=== PATIENT | male | born 1945 | race Caucasian/White ===

== ENCOUNTER → 2017-06-17 | Day surgery (SDC) | payer OTHER ==
[2017-04-22 15:51] VITALS: BMI 35.0
[2017-05-18 15:23] VITALS: Ht 172.7 cm; Wt 109.1 kg
[~2017-06-17] VITALS: Ht 172.7 cm; Wt 109.1 kg
[~2017-06-17] MED LIST: 500ML BSS 0.3ML EPI 1:1000PF IRRIG ONE; ABL5 PO; ACETAMINOPHEN 325 MG TAB PO PRN; AMVISC PLUS 0.8ML SYRINGE INT OCU ONE; BSS FLUSH ONE; BUPR-266 PO; EpINEphrine INJ 1MG/ML AMP 1 MG/ML AMP ONE; LACTATED RINGER'S 1000ML 500 ML IV SCH; LEVO125T72 PO; LIDOCAINE 3.5% OPH GEL PER APPLICATION CHARGE ONE; LIDOCAINE HCL 1% MPF 2 ML VIAL ONE; LTHSR/300 PO; MIDAZOLAM HCL 1 MG/ML 2ML VIAL ONE; OCUCOAT 1 ML SOLN IO ONE; POVIDONE-IODINE OP SOLN 30 ML BTL ONE; PROPARACAINE 0.5% OP SOLN PER DROP CHARGE OPR SCH; TOBRAMYCIN/DEXAMETHASONE OPH OINT PER APPLN CHARGE ONE; TRAZ-119 PO; VENL150C PO
--- NOTE | 2017-06-17 08:03 | History & Physical Bridge - SC ---
H&P Re-Evaluation Bridge Note: I have examined the patient, reviewed the History & Physical and in the interval since the performance of the History & Physical I have noted the following changes of clinical significance: No changes noted
[2017-06-17] MEDS: PHENYLEPHRINE HCL 2.5% OP SOLN PER DROP CHARGE OPR SCH ×2 (08:06→08:11)
[2017-06-17] MEDS: TROPICAMIDE 1% OP SOLN PER DROP CHARGE OPR SCH ×2 (08:07→08:12)
[2017-06-17] MEDS: CYCLOPENTOLATE HCL 1% OP SOLN PER DROP CHARGE OPR SCH ×2 (08:08→08:13)
[2017-06-17] MEDS: KETOROLAC 0.5% OP SOLN PER DROP CHARGE OPR SCH ×2 (08:09→08:14)
[2017-06-17] MEDS: GATIFLOXACIN OP SOLN PER DROP CHARGE OPR SCH ×2 (08:10→08:20)
--- NOTE | 2017-06-17 09:15 | [facility] Operative Report ---
Operative Report Date of Service Jun 17, 2017. Operative Report 1. PREOPERATIVE DIAGNOSIS: Cataract of the right eye. 2. POSTOPERATIVE DIAGNOSIS: Same. 3. PROCEDURE: Phacoemulsification with intraocular lens implantation of the right eye. SURGEON: Dr. Jose Raul Sahni. ANESTHESIA: Topical Lidocaine gel, 1% Non- Preserved intracameral Lidocaine INDICATIONS FOR THE PROCEDURE: The patient is a 71 - year-old male with a history of cataract of the right eye causing significant visual impairment. The details of the proposed procedure were explained to the patient who asked appropriate questions and following discussion of all risks, benefits and alternatives agreed to have the procedure done. 4. OPERATION AND FINDINGS: DESCRIPTION OF PROCEDURE: After informed consent was obtained, the patient was brought to the Operating Room at the [facility]. The patient was placed in a supine position and then the right eye was prepped and draped in the usual sterile fashion for intraocular surgery. A drop of topical Lidocaine gel was placed in the operative eye. A wire lid speculum was then placed in the fornices. A corneal paracentesis was then created temporally. The Non-Preserved Lidocaine was then instilled into the anterior chamber. The anterior chamber was then pressurized with viscoelastic. A 2.0 mm clear corneal incision was then created temporally. A cystotome was inserted into the anterior chamber and used to create a tear in the anterior lens capsule. This capsular tear was then used to create a small flap and the flap was dragged in a counterclockwise direction in order to create a continuous curvilinear capsulorrhexis. Hydrodissection was accomplished with balanced salt solution. Phacoemulsification of the lens nucleus was then performed in a standard [id number] technique. The phaco time was 21 seconds with an average power of 13 %. The remaining cortical material was removed using irrigation aspiration. The capsular bag was then filled with viscoelastic. A [employer] MI60L +20.5 diopters lens was then loaded into the injector and injected into the capsular bag. The remaining viscoelastic was removed with the irrigation aspiration handpiece. The wound was hydrated and then checked and found to be watertight. The intraocular pressure was checked and found to be adequate. The wire lid speculum was removed and the patient's face was cleaned and dried. TobraDex ointment was placed in the inferior fornix. The patient was discharged to the Recovery Room having tolerated the procedure well. There were no complications. The patient will be seen tomorrow in the office for follow-up. I attest to the content of the Intraoperative Record and any orders documented therein. Any exceptions are noted below.
--- NOTE | 2017-06-17 09:16 | Discharge Instructions-SurgCtr ---
Discharge Instructions Date of Service Jun 17, 2017. Visit Reason for Visit: Right Cataract Discharge Discharge Diagnosis / Problem: cataract Discharge Goals Goal(s): Improve function Activity Recommendations Activity Limitations: per Instructions/Follow-up section Anesthesia . Post Anesthesia Instructions: If you have had General Anesthesia or IV Sedation: * Do not drive today. * Resume driving when surgeon permits. * Do not make important decisions or sign legal documents today. * Call surgeon for: 1. Temperature elevations greater than 101 degrees F. 2. Uncontrollable pain. 3. Excessive bleeding. 4. Persistent nausea and vomiting. 5. Medication intolerance (nausea, vomiting or rash). * For nausea and vomiting use only clear liquids such as: tea, soda, bouillon until nausea subsides, then gradually increase diet as tolerated. * If you have any concerns or questions, call your surgeon's office. If physician is unavailable and it is an emergency, call 911 or go to the nearest emergency room. . Diet Recommendations Home Diet: resume previous diet Procedures Procedures Performed: Right Cataract Phacoemulsification With Intraocular Lens Implant Pending Studies Studies pending at discharge: no Medical Emergencies . Who to Call and When: Medical Emergencies: If at any time you feel your situation is an emergency, please call 911 immediately. . Non-Emergent Contact Non-Emergency issues call your: [employer] . . "Provider Documentation" section prepared by Jose Raul Sahni. .
[2017-06-17 09:44] VITALS: BP 133/78; PULSE 77; O2SAT 99
== END | disposition home or self-care (01) ==
LOC: X.SURG 07:14
PROVIDERS: ATTEND Ophthalmology
DX: H26.8 Other specified cataract (principal); F31.30 Bipolar disorder, current episode depressed, mild or moderate severity, unspecified; N18.3 Chronic kidney disease, stage 3 (moderate); E03.9 Hypothyroidism, unspecified

== ENCOUNTER 2022-09-25 09:08 | Inpatient (IN) ==
--- NOTE | 2022-09-25 09:37 | Emergency Department Note ---
Impression & Plan Aphasia, Right sided weakness ED Provider Note Provider: Ashok Castaneda MD DATE OF SERVICE: 09/25/2022 CHIEF COMPLAINT: Right-sided weakness for speech issues HISTORY OF PRESENT ILLNESS: Patient is a 77-year-old gentleman past medical history of hypothyroidism and bipolar presenting here today with his . Evidently some symptoms started on Wednesday with trouble getting his speech out. States he is understanding things but having trouble forming words. A bit of right facial droop noted as well as some weakness of his right arm. States he has difficulty walking with his right leg as well. Last several days these have persisted and he has had a little bit of jerking by his report in both upper extremities. Denies significant numbness. Denies headache. No trauma reported. states he was acting a little bit off as well not using his normal bathroom and may be a bit confused. No history of stroke reported. Given the ongoing symptoms eventually decided to come in for evaluation today. PAST MEDICAL HISTORY: As noted above MEDICATIONS: Reviewed home medication list which he reportedly has been taking but does not include anticoagulants SOCIAL HISTORY: Lives at home with PHYSICAL EXAM: GENERAL: alert and oriented in no acute distress on stretcher Head: normocephalic and atraumatic EYES: No injection, discharge or icterus. PERRL, EOMI. NECK: Trachea midline. Supple. ENT: Mucous membranes pink and moist. LUNGS: Airway patent. No retractions. Breath sounds clear HEART: Regular rate and rhythm. No chest wall tenderness ABDOMEN: Soft and non-tender, without guarding or rebound. SKIN: Acyanotic, warm, dry, without rashes EXTREMITIES: Without swelling, tenderness or deformity NEUROLOGICAL: 2+ strength of the right upper extremity with intact strength of the left lower and left upper extremity. No significant drift of the lower extremities on straight leg raise. Right facial droop noted. Slight aphasia. No significant numbness of the face or extremities reported by the patient or asymmetry. EK bpm sinus rhythm first-degree AV block. No PVC or PAC. No acute ST segment elevation or depression with QTc of 450. CONTINUOUS CARDIAC MONITORING: was ordered and showed a heart rate of 70s bpm in sinus rhythm first-degree AV block Patient's laboratory studies and imaging reviewed. Differential includes Infection, dehydration, metabolic abnormality, hypo/hyperglycemia, electrolyte disturbance, anemia, hypoxia, cardiac sources, intracerebral event, toxicologic, neurologic, as well as other pathologies. IMPRESSION/MEDICAL DECISION MAKING: Trauma history. Unfortunately appears likely a CVA. Delayed hesitation does not indicate thrombolytic therapy. He is also on lithium and other psychotropic medications could be contributing to little bit to the jerking. Does not seem severely confused but some difficulty in his words out. Blood work was sent and sent for CT imaging to initially evaluate. Question given symptoms possible findings of the CT but were by report this was negative for acute abnormalities.. Lower suspicion for intracranial bleed. Not on anticoagulants or antiplatelet agents. No infectious symptoms reported. Does not appear meningitic. Glucose checked. No significant electrolyte abnormalities. Discussed with the patient and family still feel that CVA most likely given the focality of his exam. Does not appear infected. Discussed with the hospitalist team for further care and evaluation here. MRI to be completed. DIAGNOSIS: aphasia, right-sided weakness DISPOSITION: Hospitalist will evaluate Patient was agreeable with this plan. Past Med/Surg History Medical History Bipolar disorder Stroke-like symptoms Thyroid disorder Surgical History (Updated 09/25/22 @ 16:10 by KAI Gee) History of appendectomy Family History (Updated 09/25/22 @ 13:25 by KAI Gee) Other Depression Dyslipidemia Family history non-contributory Hypertension Social History Smoking Status: Never smoker Hx Alcohol Use: No Hx Substance Use: No Preferred Language: Azerbaijani Communication Ability: Impaired Senior Net Web Developer Required: No Beliefs That Will Affect Care: None marital status: Current Living Situation: Spouse current occupational status: retired Feels Safe at Home: Yes Assistive Devices: Denture - Upper, Denture - Lower and Glasses Allergies Allergies Allergy/AdvReac Type Severity Reaction Status Date / Time No Known Allergies Allergy Unverified 09/25/22 12:14 Home Meds Home Medications Medication Instructions Recorded Confirmed aripiprazole 5 mg tablet (Abilify) 7.5 mg PO HS 08/21/18 09/25/22 dextromethorphan-guaifenesin 30 1 tab PO Q12H PRN Congestion 08/21/18 09/25/22 mg-600 mg tablet extended [id number] hr (Mucinex DM) trazodone 150 mg tablet 150 mg PO HS 08/21/18 09/25/22 venlafaxine 150 mg 300 mg PO HS 08/21/18 09/25/22 capsule,extended release 24 hr (Effexor XR) levothyroxine 150 mcg tablet 150 mcg PO DAILY 09/25/22 09/25/22 lithium carbonate 450 mg 450 mg PO HS 09/25/22 09/25/22 tablet,extended release quetiapine 25 mg tablet (Seroquel) 12.5 mg PO HS 09/25/22 09/25/22 Results & Data (ED) Vital Signs Vital Signs - 24 hr 09/25/22 09:16 09/25/22 09:30 09/25/22 09:59 Temperature 36.8 C Temperature Source Temporal Artery Scan Pulse Rate 74 73 65 Pulse Rate from SpO2 Sensor 65 Pulse Rhythm Regular Pulse Strength Normal Respiratory Rate 20 22 Respiratory Effort / Characteristics Non-Labored Spontaneous Respiratory Depth Normal Respiratory Pattern Regular Blood Pressure 144/88 H 113/72 Blood Pressure Mean 106 85 Blood Pressure Position Sitting Pulse Oximetry 99 97 Oxygen Delivery Method Room Air Room Air Sepsis Recent Fever Within 48 Hours No Sepsis New/Unexplained Change in Mental Status No Sepsis Action Taken by Nursing No Action Required 09/25/22 10:00 09/25/22 10:30 Temperature Temperature Source Pulse Rate 68 67 Pulse Rate from SpO2 Sensor 69 67 Pulse Rhythm Pulse Strength Respiratory Rate 21 24 Respiratory Effort / Characteristics Respiratory Depth Respiratory Pattern Blood Pressure 135/73 127/75 Blood Pressure Mean 93 92 Blood Pressure Position Pulse Oximetry 96 94 Oxygen Delivery Method Room Air Room Air Sepsis Recent Fever Within 48 Hours Sepsis New/Unexplained Change in Mental Status Sepsis Action Taken by Nursing Laboratory Data 09/25/22 09:34 09/25/22 09:34 Lab Results 09/25/22 09/25/22 09/25/22 Range/Units 09:31 09:34 09:34 WBC 9.39 (4.8-10.8) K/ul RBC 4.42 L (4.70-6.10) M/uL Hgb 14.7 (14.0-18.0) g/dl Hct 43.9 (42.0-52.0) % MCV 99.3 (80.0-100.0) fL MCH 33.3 (25.0-34.0) pg MCHC 33.5 (32.0-36.0) g/dL RDW Std Deviation 50.9 H (36.4-46.3) fL RDW Coeff of [place] 13.9 (11.5-14.5) % Plt Count 180 (130-400) K/uL MPV 10.3 (9.4-12.4) fL Immature Gran % (Auto) 0.4 % Neut % (Auto) 54.9 % Lymph % (Auto) 29.8 % [place] % (Auto) 7.8 % Eos % (Auto) 6.2 % Baso % (Auto) 0.9 % Neut # (Auto) 5.16 (1.40-6.50) K/uL Lymph # (Auto) 2.80 (1.2-3.4) K/uL [place] # (Auto) 0.73 H (0.11-0.59) K/uL Eos # (Auto) 0.58 H (0-0.50) K/uL Baso # (Auto) 0.08 (0-0.2) K/uL Immature Gran # (Auto) 0.04 (0.01-0.20) K/uL PT 12.5 H (9.0-12.0) Seconds INR 1.2 H (0.9-1.1) APTT 26.1 (21.0-31.0) Seconds PTT Ratio 0.9 Sodium (136-145) mmol/L Potassium (3.5-5.1) mmol/L Chloride (98-107) mmol/L Carbon Dioxide (21-32) mmol/L Anion Gap (3-11) BUN (6-23) mg/dl Creatinine (0.6-1.4) mg/dl Est Cr Clr Drug Dosing ml/min Est GFR ( Amer) ml/min Est GFR (Non-Af Amer) ml/min BUN/Creatinine Ratio (10-20) Glucose (70-99(Fasting)) mg/dl POC Glucose 89 (70-99) mg/dl Calcium (8.6-10.3) mg/dl Magnesium (1.7-2.4) mg/dl Total Bilirubin (0.2-1.0) mg/dl AST (13-39) U/L ALT (7-52) U/L Alkaline Phosphatase (34-104) U/L Troponin I High Sens (0-20) pg/ml Total Protein (6.0-8.3) gm/dl Albumin (3.4-5.0) gm/dl Globulin (2.5-4.0) gm/dl Albumin/Globulin Ratio (0.9-2) TSH (0.300-4.500) uIu/ml Free T4 (0.61-1.60) ng/dl [place] (0.6-1.2) mmol/L SARS-CoV-2, RNA, NAAT (NEGATIVE) 09/25/22 09/25/22 09/25/22 Range/Units 09:34 09:34 09:34 WBC (4.8-10.8) K/ul RBC (4.70-6.10) M/uL Hgb (14.0-18.0) g/dl Hct (42.0-52.0) % MCV (80.0-100.0) fL MCH (25.0-34.0) pg MCHC (32.0-36.0) g/dL RDW Std Deviation (36.4-46.3) fL RDW Coeff of [place] (11.5-14.5) % Plt Count (130-400) K/uL MPV (9.4-12.4) fL Immature Gran % (Auto) % Neut % (Auto) % Lymph % (Auto) % [place] % (Auto) % Eos % (Auto) % Baso % (Auto) % Neut # (Auto) (1.40-6.50) K/uL Lymph # (Auto) (1.2-3.4) K/uL [place] # (Auto) (0.11-0.59) K/uL Eos # (Auto) (0-0.50) K/uL Baso # (Auto) (0-0.2) K/uL Immature Gran # (Auto) (0.01-0.20) K/uL PT (9.0-12.0) Seconds INR (0.9-1.1) APTT (21.0-31.0) Seconds PTT Ratio Sodium 136 (136-145) mmol/L Potassium 4.2 (3.5-5.1) mmol/L Chloride 102 (98-107) mmol/L Carbon Dioxide 32 (21-32) mmol/L Anion Gap 2 L (3-11) BUN 21 (6-23) mg/dl Creatinine 1.68 H (0.6-1.4) mg/dl Est Cr Clr Drug Dosing 42.5 ml/min Est GFR ( Amer) 44.1 ml/min Est GFR (Non-Af Amer) 38.1 ml/min BUN/Creatinine Ratio 12.5 (10-20) Glucose 86 (70-99(Fasting)) mg/dl POC Glucose (70-99) mg/dl Calcium 10.0 (8.6-10.3) mg/dl Magnesium 2.1 (1.7-2.4) mg/dl Total Bilirubin 0.5 (0.2-1.0) mg/dl AST 15 (13-39) U/L ALT 16 (7-52) U/L Alkaline Phosphatase 58 (34-104) U/L Troponin I High Sens 5.9 (0-20) pg/ml Total Protein 7.1 (6.0-8.3) gm/dl Albumin 4.3 (3.4-5.0) gm/dl Globulin 2.8 (2.5-4.0) gm/dl Albumin/Globulin Ratio 1.5 (0.9-2) TSH (0.300-4.500) uIu/ml Free T4 (0.61-1.60) ng/dl [place] 1.6 H (0.6-1.2) mmol/L SARS-CoV-2, RNA, NAAT NEGATIVE (NEGATIVE) 09/25/22 Range/Units 09:43 WBC (4.8-10.8) K/ul RBC (4.70-6.10) M/uL Hgb (14.0-18.0) g/dl Hct (42.0-52.0) % MCV (80.0-100.0) fL MCH (25.0-34.0) pg MCHC (32.0-36.0) g/dL RDW Std Deviation (36.4-46.3) fL RDW Coeff of [place] (11.5-14.5) % Plt Count (130-400) K/uL MPV (9.4-12.4) fL Immature Gran % (Auto) % Neut % (Auto) % Lymph % (Auto) % [place] % (Auto) % Eos % (Auto) % Baso % (Auto) % Neut # (Auto) (1.40-6.50) K/uL Lymph # (Auto) (1.2-3.4) K/uL [place] # (Auto) (0.11-0.59) K/uL Eos # (Auto) (0-0.50) K/uL Baso # (Auto) (0-0.2) K/uL Immature Gran # (Auto) (0.01-0.20) K/uL PT (9.0-12.0) Seconds INR (0.9-1.1) APTT (21.0-31.0) Seconds PTT Ratio Sodium (136-145) mmol/L Potassium (3.5-5.1) mmol/L Chloride (98-107) mmol/L Carbon Dioxide (21-32) mmol/L Anion Gap (3-11) BUN (6-23) mg/dl Creatinine (0.6-1.4) mg/dl Est Cr Clr Drug Dosing ml/min Est GFR ( Amer) ml/min Est GFR (Non-Af Amer) ml/min BUN/Creatinine Ratio (10-20) Glucose (70-99(Fasting)) mg/dl POC Glucose (70-99) mg/dl Calcium (8.6-10.3) mg/dl Magnesium (1.7-2.4) mg/dl Total Bilirubin (0.2-1.0) mg/dl AST (13-39) U/L ALT (7-52) U/L Alkaline Phosphatase (34-104) U/L Troponin I High Sens (0-20) pg/ml Total Protein (6.0-8.3) gm/dl Albumin (3.4-5.0) gm/dl Globulin (2.5-4.0) gm/dl Albumin/Globulin Ratio (0.9-2) TSH 22.971 H (0.300-4.500) uIu/ml Free T4 0.83 (0.61-1.60) ng/dl [place] (0.6-1.2) mmol/L SARS-CoV-2, RNA, NAAT (NEGATIVE) Imaging Data Radiologist's Impression: Head CT 09/25/22 09:21 CT head/brain wo con CLINICAL HISTORY: 77 years-old Male with R neuro deficit, acute stroke suspecte d. Acute strokelike symptoms TECHNIQUE: Multiple axial CT images of the head were obtained without contrast. A dose lowering technique was utilized adhering to the principles of ALARA. CT DOSE: 696.82 mGycm COMPARISON: 08/21/2018 FINDINGS: No acute intracranial hemorrhage, midline shift, intracranial mass, hydrocephalus, territorial ischemia or abnormal extra-axial collection. Involutional changes. White matter hypodensities suggestive of chronic microvascular ischemic disease. Cerebral vascular calcifications. The calvarium is intact. Minimal mucosal thickening of the right maxillary sinus. The mastoid air cells are clear. Unremarkable soft tissues. Prior bilateral lens repair. IMPRESSION: No acute intracranial abnormality. ACT 112: Negative or not required by law. The above report was generated using voice recognition software. It may contain grammatical, syntax or spelling errors. Electronically signed by: Ramon Sandoval M.D. 09/25/2022 9:57 AM Discharge Plan Visit Data Chief Complaint: Stroke/CVA Symptoms Stated Complaint: FACIAL DROOPING, UNABLE TO BALANCE ED Provider: Ashok Castaneda Discharge Problem: Aphasia, Right sided weakness Patient Disposition: Admitted As Inpatient Discharge Instructions Interventions: ED Discharge Assessment Last Done: 09/25/22 14:05
--- NOTE | 2022-09-25 10:00 | CT Scan Report ---
CT head/brain wo con CLINICAL HISTORY: 77 years-old Male with R neuro deficit, acute stroke suspected. Acute strokelike s ymptoms TECHNIQUE: Multiple axial CT images of the head were obtained without contrast. A dose lowering tech nique was utilized adhering to the principles of ALARA. CT DOSE: 696.82 mGycm COMPARISON: 08/21/2018 FINDINGS: No acute intracranial hemorrhage, midline shift, intracranial mass, hydrocephalus, territorial ischem ia or abnormal extra-axial collection. Involutional changes. White matter hypodensities suggestive of chronic microvascular ischemic disease. Cerebral vascular calcifications. The calvarium is intact. Minimal mucosal thickening of the right maxillary sinus. The mastoid air ce lls are clear. Unremarkable soft tissues. Prior bilateral lens repair. IMPRESSION: No acute intracranial abnormality. ACT 112: Negative or not required by law. The above report was generated using voice recognition software. It may contain grammatical, syntax o r spelling errors. Electronically signed by: Ramon Sandoval M.D. 09/25/2022 9:57 AM
[2022-09-25 10:09] LABS: Basophils # (auto) 0.08 K/uL (0-0.2); Basophils % (auto) 0.9 %; Eosinophils # (auto) 0.58 K/uL (0-0.50); Eosinophils % (auto) 6.2 %; Hematocrit (blood only) 43.9 % (42.0-52.0); Hemoglobin 14.7 g/dl (14.0-18.0); Immature Granulocytes # (auto) 0.04 K/uL (0.01-0.20); Immature Granulocytes % (auto) 0.4 %; Lymphocytes % (auto) 29.8 %; Mean Corpuscular Hemoglobin 33.3 pg (25.0-34.0); Mean Corpuscular Hgb Conc 33.5 g/dL (32.0-36.0); Mean Corpuscular Volume 99.3 fL (80.0-100.0); Mean Platelet Volume 10.3 fL (9.4-12.4); Monocytes # (auto) 0.73 K/uL (0.11-0.59); Monocytes % (auto) 7.8 %; Neutrophils # (auto) 5.16 K/uL (1.40-6.50); Neutrophils % (auto) 54.9 %; Platelet Count 180 K/uL (130-400); RDW Coefficient of Variation 13.9 % (11.5-14.5); RDW Standard Deviation 50.9 fL (36.4-46.3); Red Blood Count 4.42 M/uL (4.70-6.10); White Blood Count 9.39 K/ul (4.8-10.8)
[2022-09-25 10:24] LABS: Albumin Globulin Ratio 1.5 (0.9-2); Albumin Level 4.3 gm/dl (3.4-5.0); BUN Creatinine Ratio 12.5 (10-20); Bilirubin,Total 0.5 mg/dl (0.2-1.0); Creatinine Clr Calc Pharmacy 42.5 ml/min; Est GFR (African American) 44.1 ml/min; Est GFR (Non-African American) 38.1 ml/min; Globulin 2.8 gm/dl (2.5-4.0); Magnesium 2.1 mg/dl (1.7-2.4); Potassium 4.2 mmol/L (3.5-5.1); Total Protein 7.1 gm/dl (6.0-8.3)
[2022-09-25 10:30] LABS: Troponin I High Sensitivity 5.9 pg/ml (0-20)
[2022-09-25 10:31] LABS: INR 1.2 (0.9-1.1); Partial Thromboplastin Ratio 0.9; Partial Thromboplastin Time 26.1 Seconds (21.0-31.0); Prothrombin Time 12.5 Seconds (9.0-12.0)
[2022-09-25] MEDS ORDERED: ONDANSETRON INJ 2 MG/ML 2 ML VIAL IV PRN (10:51)
[2022-09-25] MEDS ORDERED: ACETAMINOPHEN 325 MG TAB PO PRN (10:51)
[2022-09-25] MEDS ORDERED: ALUMINUM/MAGNESIUM SUSP 30 ML UDC PO PRN (10:51)
[2022-09-25] MEDS ORDERED: MAGNESIUM HYDROXIDE SUSP 30 ML UDC PO PRN (10:51)
[2022-09-25] MEDS ORDERED: POLYETHYLENE (MIRALAX) 17 GM PACK PO PRN (10:51)
--- NOTE | 2022-09-25 11:00 | History & Physical Report ---
Date of Service September 25, 2022 Assessment & Plan (1) Stroke-like symptoms: (2) Right sided weakness: (3) Aphasia: (4) Bipolar disorder: (5) Thyroid disorder: Plan 77 year old presents with CVA-like symptoms with right sided weakness/facial drop. Not on any AC/AP therapy. No H/O CVA/TIA. No known cardiac disease. Head CT (-) for CVA, brain MRI ordered. Not thrombolytic candidate d/t being outside the tx window with s/s > 3-4 days. Neuro consult; stroke orders without thrombo lytics. Stroke Like Symptoms: Right sided weakness: Expressive Aphagia: Head CT: negative for ICH, midline shift or intracranial abnormality Brain MRI with and without contrast negative. Baseline Creatinine 1.6 EGFR > 30. Hold off on CTA due to elevated creatinine for now; Hospitalist to order CTA in AM if creatinine recovers ECHO 01/2022: EF 55-59%, G1DDx Neuro consult; Appreciate input. stroke orders without thrombolytics Not on any AC/AP therapy NIH 4. Bipolar Disorder: Follows with jamir Wilson terri 08/17; Dr. Tinoco. Feels his mental health is stable Takes Seroquel 12.5mg QHS , Camargito 450 mg QHS , Abilify 7.5 mg QHS Takes Effexor 300 mg QHS; continue Confirmed all dosing of Camargito, Abilify and Seroquel as reflected in med rec. Noted compliance with psych medications Takes Effexor; continue Camargito level 1.6; discussed with on-call psych regarding Camargito level. Suggestion to hold Camargito for now. Repeat Camargito level at 2100 tonight (ordered). If Camargito level < 1.2; restart Camargito in TWO days at reduced dose of 300 mg PO QHS. Recc repeat [place] level in 5 days after restart at 12 hours past last dose to ensure it remains < 1.2 Consider full psych consult if any further decline or lab changes Hypothyroidism: 06/2022: TSH , Free T4 1.36 Today TSH 22.07; Levothyroxine recently increased from 137 mcg to 150 mcg on 09/11/22. Continue with recent dose adjustment and keep at 150 mcg Free T4 0.83 HLD: 06/2022 Lipid panel: TG282,HDL52, LDL 97 Disposition: PCP: Dr. Faye Code Status: Full Code VTE Prophylaxis: Teds and SCDs for now I spent a total of 87 minutes coordinating, documenting, and providing care for this patient excluding time spent in the performance of separately billed services. All of the aforementioned completed while collaborating with the assigned attending physician for a full treatment plan. Please see their addendum for further details. History of Present Illness Chief Complaint: stroke like symptoms Primary Care Provider: Grant Faye MD Mr. Darnell is a 77-year-old male that presents to the [facility] today with complaints of right sided weakness which has been going on for the last 4 to 5 days. Patient Candi is at his bedside and providing most of the medical details of his HPI due to patient having expressive aphasia. They do daily devotions between the 2 of them and he was noted to have some confusion and difficulty getting his words out starting 4 days ago. No other recent illnesses or contributing factors to his current presentation. Patient is able to participate in the conversation and does not appear to have receptive aphasia. Patient does deny headache, visual changes, auditory changes, lightheadedness, nausea, vomiting, diarrhea,, abdominal pain recent falls or trauma. Patient does report a fall in his bathroom 1 month ago which appears to be mechanical in nature as he slipped on the floor and fell backwards without hitting his head or losing consciousness. Patient is sitting in his bed in no apparent distress and is able to participate and follow commands. His overall strength seems to have improved since he arrived in the ED. patient continues to have right facial droop and expressive aphasia. NIH of 4 when I was in the room. Patient is an otherwise relatively healthy and independent individual. Patient does have a past medical history of bipolar disorder, anxiety and depression. This is managed by standpoint and he is compliant on his medications. Patient does not take any blood thinners or antiplatelet agents. Head CT negative for hemorrhagic or acute stroke, no midline shift or intracranial mass noted. MRI with and without contrast ordered. Neurology was able to see patient at bedside and will follow along based on imaging results. Unfortunately since his symptoms have progressed past multiple days he does not appear to be considered as a candidate for thrombolytic intervention. Patient will be admitted for further evaluation and management. Please see A/P for further details. Allergies Allergy/AdvReac Type Severity Reaction Status Date / Time No Known Allergies Allergy Unverified 09/25/22 12:14 Home Medications Medication Instructions Recorded Confirmed Type aripiprazole 5 mg tablet (Abilify) 7.5 mg PO HS 08/21/18 09/25/22 History dextromethorphan-guaifenesin 30 1 tab PO Q12H PRN Congestion 08/21/18 09/25/22 History mg-600 mg tablet extended [id number] hr (Mucinex DM) trazodone 150 mg tablet 150 mg PO HS 08/21/18 09/25/22 History venlafaxine 150 mg 300 mg PO HS 08/21/18 09/25/22 History capsule,extended release 24 hr (Effexor XR) levothyroxine 150 mcg tablet 150 mcg PO DAILY 09/25/22 09/25/22 History lithium carbonate 450 mg 450 mg PO HS 09/25/22 09/25/22 History tablet,extended release quetiapine 25 mg tablet (Seroquel) 12.5 mg PO HS 09/25/22 09/25/22 History Past Med/Surg History Medical History Bipolar disorder Stroke-like symptoms Thyroid disorder Surgical History (Updated 09/25/22 @ 16:10 by KAI Gee) History of appendectomy Family History (Updated 09/25/22 @ 13:25 by KAI Gee) Other Depression Dyslipidemia Family history non-contributory Hypertension Social History Smoking Status: Never smoker Hx Alcohol Use: No Hx Substance Use: No Preferred Language: Vincentian Communication Ability: Impaired Repair Specialist Required: No Beliefs That Will Affect Care: None marital status: Current Living Situation: Spouse current occupational status: retired Feels Safe at Home: Yes Assistive Devices: Denture - Upper, Denture - Lower and Glasses Review of Systems Review of Systems: Neuro: (-) Falls, trauma, slurred speech HEENT: (-) BRANDON, dizziness, dysphagia, visual or auditory changes CV: (-) CP, palpitations, swelling Resp: (-) SOB GI: (-) appetite changes, N/V/D, bowel changes : (-) urinary changes Skin: (-) rashes Psych: (-) anxiety, depression Physical Exam Physical Exam: Neuro: AAOx4, PERRLA, no aphagia, memory changes, HEENT: head normocephalic, moist mucus membranes CV: S1/S2, (-) M/G/R, (-) edema, cap refill < 3 seconds Resp: Lungs CTA in all lobato. On RA GI: Abdomen S/NT/ND, Ax4 bowel sounds, (-) CVA tenderness Musculoskeletal: 5/5 B/L UE strength, 5/5 B/L LE strength. No gait disturbance Skin: (-) rashes , (-) erythema. Psych: euthymic mood Results & Data Results & Data Vital Signs (Past 12 Hours) Vital Signs Temp Pulse Resp BP Pulse Ox O2 Del Method 09/25/22 10:30 67 24 127/75 94 Room Air 09/25/22 10:00 68 21 135/73 96 Room Air 09/25/22 09:59 65 22 113/72 97 Room Air 09/25/22 09:30 73 09/25/22 09:16 36.8 C 74 20 144/88 H 99 Room Air Laboratory Results Short CBC 09/25/22 Range/Units 09:34 WBC 9.39 (4.8-10.8) K/ul Hgb 14.7 (14.0-18.0) g/dl Hct 43.9 (42.0-52.0) % Plt Count 180 (130-400) K/uL BMP 09/25/22 09:34 Sodium 136 Potassium 4.2 Chloride 102 Carbon Dioxide 32 BUN 21 Creatinine 1.68 H Glucose 86 Calcium 10.0 Liver Function 09/25/22 Range/Units 09:34 Total Bilirubin 0.5 (0.2-1.0) mg/dl AST 15 (13-39) U/L ALT 16 (7-52) U/L Alkaline Phosphatase 58 (34-104) U/L Albumin 4.3 (3.4-5.0) gm/dl Diagnostic Findings Head CT 09/25/22 09:21 CT head/brain wo con CLINICAL HISTORY: 77 years-old Male with R neuro deficit, acute stroke suspected. Acute strokelike symptoms TECHNIQUE: Multiple axial CT images of the head were obtained without contrast. A dose lowering technique was utilized adhering to the principles of ALARA. CT DOSE: 696.82 mGycm COMPARISON: 08/21/2018 FINDINGS: No acute intracranial hemorrhage, midline shift, intracranial mass, hydrocephalus, territorial ischemia or abnormal extra-axial collection. Involutional changes. White matter hypodensities suggestive of chronic microva scular ischemic disease. Cerebral vascular calcifications. The calvarium is intact. Minimal mucosal thickening of the right maxillary sinus. The mastoid air cells are clear. Unremarkable soft tissues. Prior bilateral lens repair. IMPRESSION: No acute intracranial abnormality. ACT 112: Negative or not required by law. The above report was generated using voice recognition software. It may contain grammatical, syntax or spelling errors. Electronically signed by: Ramon Sandoval M.D. 09/25/2022 9:57 AM Code Status & VTE Plan Code Status Full Code in the event of cardiac or respiratory arrest VTE Prophylaxis Plan VTE Prophylaxis will be ordered: Yes Supervising Physician Co-Signing Physician Notes Pt was seen and examined. Agreed with Katharine SAUCEDA exam, assessment and plan. 77-year-old male that presents to the [facility] to eval for stroke like symptoms. Pt has been having weakness for the last 4 to 5 days associated with aphasia. He was also noted to be confused and aphasic. Currently he said that he feels OK. CT head done on admission showed no acute intracranial finding. On exam, no focal neuro deficit noted, motor and sensation intake, Chest- CTA B/L. MRI head was negative. No TPA was administered in the ER since pt has been having symptoms for the last few days. Neuro was consulted recommended to start on aspirin 81mg daily. Neuro suggested to check CT angiography of the head and neck. consider 30-day mobile cardiac outpatient telemetry no evidence of atrial fibrillation identified in the context of this hospitalization.PT/OT/Speech eval as per stroke protocol. Will follow Camargito level. Continue monitor closely in tele. MD Beverly
[2022-09-25 11:05] LABS: Thyroid Stimulating Hormone 22.971 uIu/ml (0.300-4.500)
--- NOTE | 2022-09-25 12:16 | Neurology Consultation ---
Date of Consultation September 25, 2022 Assessment & Plan (1) Stroke-like symptoms: (2) Aphasia: (3) Right sided weakness: Plan 77-year-old male presenting with a probable subacute left hemispheric ischemic infarct. He has been noticing mild right-sided weakness for at least the past week, but with more recent development of what looks like a mild to moderate expressive aphasia. His presentation could be consistent with recurrent embolic stroke to the left cerebral hemisphere. Fortunately, his right hemiparesis is mild at this time. His expressive aphasia is perhaps mild to moderate in severity with intact language comprehension. He will need additional evaluation including MRI of the brain, CT angiography of the head and neck, carotid ultrasound if unable to complete CT angiography due to elevated creatinine, cardiac monitoring. If his MRI does reveal evidence of ischemic stroke, would start daily low-dose aspirin. If there is evidence of hemorrhage, would need to review further prior to recommending antiplatelet therapy. The initial CT of the head was negative for hemorrhage, however. Would check a lipid panel, consider starting a statin with a goal LDL of 70 or less. Would also recommend a transthoracic echocardiogram with bubble study. Patient has been normotensive, without blood pressure medication. Continue to monitor his blood pressure, if necessary, could allow for permissive hypertension, systolic blood pressure range 140 to 160 mmHg. Nonetheless, his current blood pressure is acceptable as he appears to run lower than this range. Consultations with PT/OT/speech therapy. I see that his TSH is significantly elevated, follow-up with free T4 level as ordered. Adjust his thyroid supplementation as necessary. Would continue with his usual outpatient psychiatric medications. As above, follow-up with results of brain MRI, neurovascular imaging, echocardiography. Consider mobile cardiac outpatient telemetry. No further immediate neurologic recommendations. Please call with any questions. History of Present Illness Reason for Consultation: Right facial droop, right-sided weakness, concern for stroke Requesting Physician: KAI Evans Attending Physician: KAI Evans History of Present Illness The patient is a 77-year-old male with a history of bipolar disorder, depression, hypothyroidism, no known history of cardiovascular disease, who presented to the emergency department earlier today, complaining of right-sided weakness which has been present for at least the past week or so, but with more recent development of word finding difficulty and confusion, over the past 3 to 4 days. He has been able to ambulate independently in spite of experiencing some difficulty with his right arm and leg. Due to his persistent, progressive symptoms, he decided to eventually come to the emergency department for further evaluation and management. I evaluated him in the emergency department, his is at bedside, she corroborates the above history. The patient does have some difficulty relating details due to what seems like a mild to moderate expressive aphasia. He denies headache, vision change, sensory loss, vertigo, or diplopia. No prior history of stroke or TIA. He does not take any blood thinners such as aspirin or an anticoagulant. He does not have a known history of hypertension or dyslipidemia. He did have a CT of the head completed this morning that was negative for hemorrhage or acute process. I did independently review these images. I do appreciate a subtle hypodensity within the posterior limb of the left internal capsule that could be consistent with a subacute evolving ischemic infarct in this area. There is also subtle hypodensity within the left subinsular region and evidence of chronic microvascular ischemic change in both cerebral hemispheres. A brain MRI is pending. Given that his symptoms have been present for several days, if not the past week or so, he was not considered a candidate for thrombolytic therapy. Looks like a CT angiogram is on hold due to elevated creatinine currently. He has been normotensive, and is afebrile. Allergies Allergy/AdvReac Type Severity Reaction Status Date / Time No Known Allergies Allergy Unverified 09/25/22 12:14 Home Medications Medication Instructions Recorded Confirmed Type aripiprazole 5 mg tablet (Abilify) 2.5 mg PO HS 08/21/18 05/18/22 History dextromethorphan-guaifenesin 30 1 tab PO Q12H PRN Congestion 08/21/18 05/18/22 History mg-600 mg tablet extended hr (Mucinex DM) levothyroxine 125 mcg tablet 125 mcg PO HS 08/21/18 05/18/22 History lithium carbonate 300 mg tablet 900 mg PO HS 08/21/18 05/18/22 History tamsulosin 0.4 mg capsule (Flomax) 0.4 mg PO HS 08/21/18 08/21/18 History trazodone 150 mg tablet 150 mg PO HS 08/21/18 05/18/22 History venlafaxine 150 mg 300 mg PO HS 08/21/18 05/18/22 History capsule,extended release 24 hr (Effexor XR) Patient History Medical History (Updated 09/25/22 @ 10:59 by KAI Gee) Bipolar disorder Stroke-like symptoms Thyroid disorder Family History Other Family history non-contributory Social History Smoking Status: Never smoker Preferred Language: Yi marital status: Current Living Situation: Spouse current occupational status: retired Feels Safe at Home: Yes Review of Systems Constitutional: no fever and no chills Eyes: no blind spots and no diplopia Ear, Nose, Mouth, Throat: no ear pain and no hearing loss Respiratory: no cough and no dyspnea Cardiovascular: no chest pain and no palpitations Gastrointestinal: no nausea and no vomiting Genitourinary: no dysuria or no urinary incontinence Musculoskeletal: no neck pain and no myalgia Integumentary: no rash and no lesions Neurologic: as per Subjective / HPI, + localized weakness and + confusion; no seizure-like activity and no headache(s) Psychiatric: + depression Hematologic / Lymphatic: no easy bleeding and no easy bruising Exam (Neuro) Constitutional: well developed and well nourished; no acute distress Eyes: normal visual lobato by confrontation, PERRL and EOM intact bilaterally; no papilledema Cardiovascular: Vessels: no carotid bruit Neurologic: Oriented to:: Person, Place and Time Memory: Short Term Intact and Remote Intact Attention: Span Intact and Concentration Intact Language: negative Naming Objects or Repeating Phrases Speech Fluency: Dysarthria (mild) and Dysfluency Speech Aphasia: Broca's Aphasia (mild to moderate) Fund of Knowledge: Vocabulary Cranial Nerves: Normal II, III, IV, , V, VIII, IX, X, XI and XII; Abnorm VII (Mild flattening right nasolabial fold noted) Motor Strength: Normal Lower Extremities and Normal Upper Extremities Motor Tone: Normal Lower Extremities and Normal Upper Extremities Muscle Bulk/Involuntary Movements: No Involuntary Movements; negative Muscle Atrophy Sensation: Light Touch Intact, Pain/Temperature Intact, Vibration Intact and Proprioception Intact Coordination: Finger-Nose Abnormal Laterality: Right and Heel-Dougherty Abnormal Laterality: Right Deep Tendon Ref lexes: Rt Triceps: 2+, Lt Triceps: 2+, Rt Biceps: 2+, Lt Biceps: 2+, Rt Brachioradialis: 2+, Lt Brachioradialis: 2+, Rt Patellar: 2+, Lt Patellar: 2+, Rt Ankle: 1+ and Lt Ankle: 1+ Special Tests: negative Babinski Present Details: Gait could not be tested. Patient had difficulty with object naming and somewhat greater difficulty with reading. Results & Data Vital Signs (Past 12 Hours) Vital Signs Temp Pulse Pulse Resp BP BP Pulse Ox 09/25/22 11:00 69 20 118/69 98 09/25/22 10:30 67 24 127/75 94 09/25/22 10:00 68 21 135/73 96 09/25/22 09:59 65 22 113/72 97 09/25/22 09:30 73 09/25/22 09:16 36.8 C 74 20 144/88 H 99 O2 Del Method 09/25/22 11:00 Room Air 09/25/22 10:30 Room Air 09/25/22 10:00 Room Air 09/25/22 09:59 Room Air 09/25/22 09:30 09/25/22 09:16 Room Air Laboratory Results WBC 9.39, hemoglobin 14.7, hematocrit 43.9, MCV 99.3, platelet count 180, sodium 136, potassium 4.2, BUN 21, creatinine 1.68, glucose 86, calcium 10.0, magnesium 2.1, AST 15, ALT 16, TSH 22.971, free T4 pending, lithium 1.6, SARS-CoV-[address] RNA [address] Diagnostic Findings CT of the head as described in the history of present illness, I independently reviewed these images. Electrocardiogram reveals sinus rhythm with first-degree AV block, 74 bpm PG Care Time/CCT Total # of Minutes Spent Total Time Spent with Patient: Total time spent is greater than 50% in coordination of care (as documented) at patient's floor/unit and/or counseling patient: 80 minutes Coding Level of Care Code 02130 INT INP/OBS CARE 3/75MIN Diagnoses Stroke-like symptoms R29.90 Aphasia R47.01 Right sided weakness R53.1
[2022-09-25 12:19] LABS: T4 Free Thyroxine 0.83 ng/dl (0.61-1.60)
--- NOTE | 2022-09-25 12:56 | Magnetic Resonance Report ---
MRI OF THE BRAIN WITHOUT IV CONTRAST CLINICAL HISTORY: Strokelike symptoms. COMPARISON STUDY: CT of the brain dated 09/25/2022. TECHNIQUE: MRI of the brain was performed utilizing various T1 and T2-weighted sequences in the axial , sagittal, and coronal planes. IV contrast was not administered for this examination. The examinatio n is degraded by motion artifact. FINDINGS: Brain parenchyma: There is age-related involutional change noting moderate subcortical and periventri cular microangiopathic disease. There is no hemorrhage or mass effect. There is no restricted diffusi on to suggest acute ischemia. White-white matter differentiation is preserved. No extra-axial fluid co llection is seen. The cerebellar tonsils are normal in configuration. Ventricles, sulci, and cisterns: Prominent secondary to involutional change. Pituitary and sella: Unremarkable. Intracranial vasculature: Normal flow voids are maintained at the skull base. Orbits: The bony orbits are grossly intact. Orbital contents are normal in appearance noting bilatera l ocular lens implants. Sinuses and mastoids: There is mild mucosal thickening in the right maxillary antrum. Trace mucosal t hickening is noted in the ethmoid sinuses. The mastoid air cells are clear. Calvarium: Unremarkable. Cervical cord: Partially visualized cervical spinal cord is normal in morphology and signal intensity . IMPRESSION: No acute intracranial abnormality. ACT 112: Negative or not required by law. Electronically signed by: Jerome Sullivan M.D. 09/25/2022 12:55 PM
--- NOTE | 2022-09-25 18:07 | Electrocardiogram Report ---
Test Reason : Blood Pressure : / mmHG Vent. Rate : 074 BPM Atrial Rate : 074 BPM P-R Int : 216 ms QRS Dur : 106 ms QT Int : 406 ms P-R-T Axes : 032 -05 112 degrees QTc Int : 450 ms Sinus rhythm with 1st degree A-V block Abnormal QRS-T angle, consider primary T wave abnormality Abnormal ECG When compared with ECG of 21-AUG-2018 10:16, ME interval has increased Confirmed by William Amaral ([id number]) on 09/25/2022 6:07:16 PM Referred By: ED Confirmed By:Reynaldo Amaral
[2022-09-25] MEDS: traZODone HCL 50 MG TAB PO SCH (20:07)
[2022-09-25] MEDS: QUEtiapine FUMARATE 25 MG TABLET PO SCH (20:07)
[2022-09-25] MEDS: VENLAFAXINE HCL XR 150 MG CAPXR PO SCH (20:07)
[2022-09-25] MEDS: ARIPiprazole 5 MG TAB PO SCH (20:08)
[2022-09-26 05:13] LABS: Appearance Urine Cloudy (Clear); Bacteria Urine Automated Negative (Negative); Bilirubin Urine Negative (Negative); Blood Urine Negative (Negative); Cast Urine Automated 0 /lpf (0-5); Color Urine Yellow; Glucose Urine UA Negative (Negative); Ketones Urine Negative (Negative); Leukocyte Esterase Urine 1+ (Negative); Nitrite Urine Negative (Negative); Protein Urine Negative (Negative); RBC Urine Automated 0-4 /hpf (0-4); Specific Gravity Urine 1.014 (1.000-1.030); Urobilinogen Urine Negative (Negative); pH Urine 6.5 (4.5-7.5)
[2022-09-26] MEDS: LEVOTHYROXINE SODIUM 150 MCG TABLET PO SCH (05:56)
[2022-09-26 07:47] LABS: Hematocrit (blood only) 42.6 % (42.0-52.0); Hemoglobin 14.3 g/dl (14.0-18.0); Mean Corpuscular Hemoglobin 33.2 pg (25.0-34.0); Mean Corpuscular Hgb Conc 33.6 g/dL (32.0-36.0); Mean Corpuscular Volume 98.8 fL (80.0-100.0); Mean Platelet Volume 10.1 fL (9.4-12.4); Platelet Count 169 K/uL (130-400); RDW Coefficient of Variation 14.1 % (11.5-14.5); RDW Standard Deviation 51.8 fL (36.4-46.3); Red Blood Count 4.31 M/uL (4.70-6.10); White Blood Count 9.06 K/ul (4.8-10.8)
[2022-09-26 08:02] LABS: Albumin Globulin Ratio 1.5 (0.9-2); BUN Creatinine Ratio 13.8 (10-20); Bilirubin,Total 0.5 mg/dl (0.2-1.0); Calcium 9.5 mg/dl (8.6-10.3); Chol HDL Ratio 3.9 (0-5); Creatinine Clr Calc Pharmacy 37.7 ml/min; Est GFR (African American) 38.3 ml/min; Globulin 2.6 gm/dl (2.5-4.0); Potassium 4.4 mmol/L (3.5-5.1); Total Protein 6.6 gm/dl (6.0-8.3)
[2022-09-26 10:15] LABS: Estimated Average Glucose 111 mg/dl; Hemoglobin A1C 5.5 % (4.5-5.6)
--- NOTE | 2022-09-26 14:12 | Hospitalist Progress Note ---
Date of Service September 26, 2022 Assessment & Plan (1) Stroke-like symptoms: Plan: 77 year old presents with CVA-like symptoms with right sided weakness/facial drop. Not on any AC/AP therapy. No H/O CVA/TIA. No known cardiac disease. Head CT (-) for CVA, brain MRI ordered. Not thrombolytic candidate d/t being outside the tx window with s/s > 3-4 days. Neuro consult; stroke orders without thrombolytics. Stroke Like Symptoms: Right sided weakness: Expressive Aphagia: Head CT: negative for ICH, midline shift or intracranial abnormality Brain MRI with and without contrast negative. Baseline Creatinine 1.6 EGFR > 30. Hold off on CTA due to elevated creatinine for now; ECHO 01/2022: EF 55-59%, G1DDx Neuro consult; Appreciate input. stroke orders without thrombolytics Not on any AC/AP therapy improving ordered aspirin and statin and carotid us as per neuro recommendations continue pt/ot Bipolar Disorder: As per H and P:Follows with Steve, jamir terri 08/17; Dr. Tinoco. Feels his mental health is stable Takes Seroquel 12.5mg QHS , [place] 450 mg QHS , Abilify 7.5 mg QHS Takes Effexor 300 mg QHS; continue Confirmed all dosing of [place], Abilify and Seroquel as reflected in med rec. Noted compliance with psych medications Takes Effexor; continue [place] level 1.6; discussed with on-call psych regarding [place] level. Suggestion to hold [place] for now. Repeat [place] level at 2100 tonight (ordered). If [place] level < 1.2; restart [place] in TWO days at reduced dose of 300 mg PO QHS. Recc repeat [place] level in 5 days after restart at 12 hours past last dose to ensure it remains < 1.2 Consider full psych consult if any further decline or lab changes" [place] level 1.3 Will follow repeat lithium levels Hypothyroidism: 06/2022: TSH , Free T4 1.36 Today TSH 22.07; Levothyroxine recently increased from 137 mcg to 150 mcg on 09/11/22. Continue with recent dose adjustment and keep at 150 mcg Free T4 0.83needs followuup HLD: 06/2022 Lipid panel: TG282,HDL52, LDL 97 Strted on statin (2) Bipolar disorder: (3) Thyroid disorder: (4) Aphasia: (5) Right sided weakness: Admission and Anticipated Discharge Date Admission Date: September 25, 2022 Subjective sitting on the bed comfortably in room ambulating with PT seems what wobbly speech is better as per weakness on right side better eating and swallowing ok afebrile no nausea Review of Systems Review of Systems: above Physical Exam Constitutional: WD/WN, vitals as above Eyes: EOMI Neck: trachea midline, no thyromegaly Respiratory: normal respiratory effort, lungs clear to auscultation Cardiovascular: RRR, no murmur, no edema Gastrointestinal (Abdomen): normal bowel sounds, soft, nontender, no hepatosplenomegaly Skin: no rashes, warm and dry Neurologic: alert and oriented has right facial droop speech ok power 5/5 in left extremities 4-5/5 in right extremities co ordination of movements ok no obvious pronator drift Results & Data Results & Data Vital Signs (Past 12 Hours) Vital Signs Temp Pulse Pulse Resp BP Pulse Ox O2 Del Method 09/26/22 11:18 37.2 C 81 20 137/90 98 Room Air 09/26/22 07:00 71 09/26/22 07:35 36.3 C L 79 18 125/78 96 Room Air 09/26/22 03:42 36.6 C 75 16 97/61 L 94 Room Air
[2022-09-26] MEDS ORDERED: ATORVASTATIN 40 MG TAB PO STA (14:19)
[2022-09-26] MEDS ORDERED: ASPIRIN 81 MG ECTAB PO ONE (14:20)
[2022-09-26] MEDS: QUEtiapine FUMARATE 25 MG TABLET PO SCH (22:05)
[2022-09-26] MEDS: VENLAFAXINE HCL XR 150 MG CAPXR PO SCH (22:05)
[2022-09-26] MEDS: traZODone HCL 50 MG TAB PO SCH (22:05)
[2022-09-26] MEDS: ARIPiprazole 5 MG TAB PO SCH (22:06)
[2022-09-27 05:52] LABS: Basophils # (auto) 0.07 K/uL (0-0.2); Basophils % (auto) 0.7 %; Eosinophils % (auto) 5.2 %; Hematocrit (blood only) 41.4 % (42.0-52.0); Hemoglobin 14.2 g/dl (14.0-18.0); Immature Granulocytes # (auto) 0.03 K/uL (0.01-0.20); Immature Granulocytes % (auto) 0.3 %; Lymphocytes # (auto) 3.24 K/uL (1.2-3.4); Lymphocytes % (auto) 33.5 %; Mean Corpuscular Hemoglobin 32.6 pg (25.0-34.0); Mean Corpuscular Hgb Conc 34.3 g/dL (32.0-36.0); Mean Corpuscular Volume 95.2 fL (80.0-100.0); Mean Platelet Volume 10.1 fL (9.4-12.4); Monocytes # (auto) 0.77 K/uL (0.11-0.59); Neutrophils # (auto) 5.05 K/uL (1.40-6.50); Neutrophils % (auto) 52.3 %; Platelet Count 154 K/uL (130-400); RDW Coefficient of Variation 13.9 % (11.5-14.5); RDW Standard Deviation 48.6 fL (36.4-46.3); Red Blood Count 4.35 M/uL (4.70-6.10); White Blood Count 9.66 K/ul (4.8-10.8)
[2022-09-27 06:10] LABS: BUN Creatinine Ratio 14.6 (10-20); Creatinine Clr Calc Pharmacy 40.1 ml/min; Est GFR (African American) 41.1 ml/min; Est GFR (Non-African American) 35.5 ml/min; Potassium 4.1 mmol/L (3.5-5.1)
[2022-09-27] MEDS: LEVOTHYROXINE SODIUM 150 MCG TABLET PO SCH (06:25)
[2022-09-27] MEDS: ASPIRIN 81 MG ECTAB PO SCH (09:31)
[2022-09-27] MEDS: ATORVASTATIN 40 MG TAB PO SCH (09:31)
--- NOTE | 2022-09-27 11:29 | Ultrasound Report ---
US carotid doppler BI CLINICAL HISTORY: 77 years-old Male with cva. Acute strokelike symptoms COMPARISON: Brain MRI 09/25/2022 TECHNIQUE: Multiple real time sonographic images of the carotid bifurcations were obtained assessing monsivais scale, color Doppler and spectral wave form appearance FINDINGS: RIGHT CAROTID: The peak systolic velocity measured within the right ICA is 55 cm/sec. The end diast olic velocity measured 12 cm/sec. The ICA to CCA ratio measured 1.0 which correlates with a stenosis of 0-50%. Minimal atherosclerotic plaque of the right carotid bulb. LEFT CAROTID: The peak systolic velocity measured within the left ICA is 59 cm/sec. The end diastol ic velocity measured 17 cm/sec. The ICA to CCA ratio measured 0.8 which correlates with a stenosis of 0-50%. Minimal atherosclerotic plaque of the left carotid bulb. There is normal antegrade vertebral flow bilaterally. IMPRESSION: 1. No hemodynamically significant stenosis. 2. Normal antegrade vertebral flow bilaterally. ACT 112: Negative or not required by law. The above report was generated using voice recognition software. It may contain grammatical, syntax o r spelling errors. Electronically signed by: Ramon Sandoval M.D. 09/27/2022 11:27 AM
--- NOTE | 2022-09-27 17:54 | Hospitalist Progress Note ---
Date of Service September 27, 2022 Assessment & Plan (1) Stroke-like symptoms: Plan: (1) Stroke-like symptoms: Plan: 77 year old presents with CVA-like symptoms with right sided weakness/facial drop. Not on any AC/AP therapy. No H/O CVA/TIA. No known cardiac disease. Head CT (-) for CVA, brain MRI ordered. Not thrombolytic candidate d/t being outside the tx window with s/s > 3-4 days. Neuro consult; stroke orders without thrombolytics. Stroke Like Symptoms: Right sided weakness: Expressive Aphagia: Head CT: negative for ICH, midline shift or intracranial abnormality Brain MRI with and without contrast negative. Baseline Creatinine 1.6 EGFR > 30. Hold off on CTA due to elevated creatinine for now; ECHO 01/2022: EF 55-59%, G1DDx Neuro consult; Appreciate input. stroke orders without thrombolytics Not on any AC/AP therapy improving Started on aspirin and statin as per neuro recommendations. recommends cta or carotid us for possible embolic TIA and also one moth heart monitor on discharge if tele ok here. carotid US ok continue pt/ot- recommends rehab speech recommends speech therapy at discharge Bipolar Disorder: As per H and P:Follows with [email or web address], jamir terri 08/17; Dr. Tinoco. Feels his mental health is stable Takes Seroquel 12.5mg QHS , [place] 450 mg QHS , Abilify 7.5 mg QHS Takes Effexor 300 mg QHS; continue Confirmed all dosing of [place], Abilify and Seroquel as reflected in med rec. Noted compliance with psych medications Takes Effexor; continue [place] level 1.6; Admitting Doc discussed with on-call psych regarding [place] level. Suggestion to hold I[place]ia for now. Advised f If [place] level < 1.2; restart [place] in TWO days at reduced dose of 300 mg PO QHS. Recc repeat [place] level in 5 days after restart at 12 hours past last dose to ensure it remains < 1.2 Consider full psych consult if any further decline or lab changes" [place] level 1.1 today and can restart lithium 300mg po q hs from tomorrow 09/28/22. and recheck levels in 5 days with am labs. Needs followup with psychiatry Hypothyroidism: 06/2022: TSH , Free T4 1.36 Today TSH 22.07; Levothyroxine recently increased from 137 mcg to 150 mcg on 09/11/22. Continue with recent dose adjustment and keep at 150 mcg Free T4 0.83 needs followuup HLD: 06/2022 Lipid panel: TG282,HDL52, LDL 97 Started on statin needs followup with PCP with [facility] and repeat lipid profile. CKD stage 3 baseline cr 1.6 cr 1.7 today close to baseline follow labs DVt px scds. Await rehab placement Admission and Anticipated Discharge Date Admission Date: September 25, 2022 Subjective Speech is somewhat more pressured today denies chest pain or sob afebrile denies nausea says eating ok no abdominal pain 'no cough Review of Systems Review of Systems: As above Physical Exam Eyes: EOMI Neck: trachea midline, no thyromegaly Respiratory: normal respiratory effort, lungs clear to auscultation Cardiovascular: RRR, no murmur, no edema Gastrointestinal (Abdomen): normal bowel sounds, soft, nontender, no hepatosplenomegaly Neurologic: Alert and oriented speech pressured power 5/5 in all extremities Results & Data Results & Data Vital Signs (Past 12 Hours) Vital Signs Temp Pulse Pulse Resp BP Pulse Ox O2 Del Method 09/27/22 15:27 75 09/27/22 15:27 36.8 C 75 20 133/89 96 Room Air 09/27/22 11:24 36.5 C 77 20 122/70 95 Room Air 09/27/22 07:49 36.7 C 80 20 105/69 95 Room Air 09/27/22 07:16 70
[2022-09-27] MEDS: ARIPiprazole 5 MG TAB PO SCH (21:26)
[2022-09-27] MEDS: traZODone HCL 50 MG TAB PO SCH (21:26)
[2022-09-27] MEDS: QUEtiapine FUMARATE 25 MG TABLET PO SCH (21:26)
[2022-09-27] MEDS: VENLAFAXINE HCL XR 150 MG CAPXR PO SCH (21:27)
[2022-09-28] MEDS: LEVOTHYROXINE SODIUM 150 MCG TABLET PO SCH (05:42)
[2022-09-28] MEDS: ATORVASTATIN 40 MG TAB PO SCH (08:03)
[2022-09-28] MEDS: ASPIRIN 81 MG ECTAB PO SCH (08:03)
[2022-09-28] MEDS ORDERED: traZODone HCL 100 MG TAB PO SCH ×2 (21:00)
[2022-09-28] MEDS: ARIPiprazole 5 MG TAB PO SCH (21:41)
[2022-09-28] MEDS: QUEtiapine FUMARATE 25 MG TABLET PO SCH (21:42)
[2022-09-29] MEDS: LEVOTHYROXINE SODIUM 150 MCG TABLET PO SCH (06:11)
--- NOTE | 2022-09-29 07:47 | Hospitalist Progress Note ---
Date of Service September 28, 2022 Assessment & Plan (1) Stroke-like symptoms: Plan: resolved, per neuro brain MRI with extensive chronic small vessel ischemic disease throughout the cerebral hemispheres with mild generalized atrophy. There was concern for recurrent embolic TIA. CT angio head and neck recommended with consideration for 30 day event monitor. Low dose aspirin was started. Head CT: negative for ICH, midline shift or intracranial abnormality Brain MRI with and without contrast negative. Baseline Creatinine 1.6 EGFR > 30. Started on aspirin and statin as per neuro recommendations. recommends cta or carotid us for possible embolic TIA and also one moth heart monitor on discharge if tele ok here. Hold off on CTA due to elevated creatinine for now; carotids reveal no hemodynamically significant stenosis. ECHO 01/2022: EF 55-59%, G1DDx continue pt/ot- recommends rehab speech recommends speech therapy at discharge Await rehab placement (2) Bipolar disorder: Plan: As per H and P:Follows with Steve, jamir terri 08/17; Dr. Tinoco. Feels his mental health is stable Takes Seroquel 12.5mg QHS , [place] 450 mg QHS , Abilify 7.5 mg QHS Takes Effexor 300 mg QHS; continue but will adjust Effexor to am Noted compliance with psych medications [place] level 1.6; Admitting Doc discussed with on-call psych regarding [place] level. Suggestion to hold [place] for now. Advised f If [place] level < 1.2; restart [place] in TWO days at reduced dose of 300 mg PO QHS. Recc repeat [place] level in 5 days after restart at 12 hours past last dose to ensure it remains < 1.2 Consider full psych consult if any further decline or lab changes [place] 300mg qHS to start on 09/29. Repeat lithium level at noon on 10/04 to ensure still <1.2 (3) Hypothyroidism: Plan: 06/2022: TSH , Free T4 1.36 Today TSH 22.07; Levothyroxine recently increased from 137 mcg to 150 mcg on 09/11/22. Continue with recent dose adjustment and keep at 150 mcg Free T4 0.83 needs followup TFTs as outpatient (4) Morbid obesity: Plan: outpatient nutrition consult recommended. (5) CKD (chronic kidney disease), stage III: Plan: baseline cr 1.6 currently at baseline. cont to monitor PRN Start heparin Full Code Dispo-to rehab when bed available [facility] Hospital[facility] Admission and Anticipated Discharge Date Admission Date: September 25, 2022 Subjective 77 yo M presented wtih right sided weakness and facial droop. Workup including head CT, brain MRI negative. Pt is feeling well and moving well without apparent deficit this morning We discussed his medications and changed effexor to am and cut trazdone by 50% with his permission. Review of Systems Review of Systems: All systems were reviewed and negative except as indicated abov.e Physical Exam Physical Exam: CONSTITUTIONAL: obese, vitals as above, generally well-appearing EYES: EOMI bilaterally, PERRL, normal conjunctivae, no scleral icterus ENT: external ear and nose normal, oropharynx clear, NECK: trachea midline RESPIRATORY: clear to auscultation bilaterally, no crackles, rales or wheezes, normal respiratory effort CARDIOVASCULAR: regular rate and rhythm, S1 and 2 heard without murmurs, gallops or rubs, no JVD, no peripheral edema CHEST: inspection of chest was normal GASTROINTESTINAL: soft, nontender, protuberant, ND, no guarding MUSCULOSKELETAL: strength 5/5 throughout, he can sit up independently in bed without issues. Head is normocephalic and atraumatic SKIN: warm and dry, NEUROLOGIC: patellar DTRs 2+ bilat. PERRL, EOMI, no facial palsy, no dysarthria. Touch, pain and proprioception normal. CN 2-12 grossly intact, no sensory deficit, normal cognition, normal speech, no tremor PSYCHIATRIC: alert cooperative and oriented to person, place and time. Euthymic mood, makes good eye contact, language grossly intact, recent and remote memory grossly intact. Results & Data Results & Data Vital Signs (Past 12 Hours) Vital Signs Temp Pulse Resp BP Pulse Ox O2 Del Method 09/29/22 04:08 36.7 C 90 20 120/75 93 Room Air 09/29/22 00:18 36.7 C 93 H 20 133/69 95 Room Air 09/28/22 19:55 36.7 C 81 20 110/70 93 Room Air Medications Administered Current Inpatient Medications Acetaminophen (Acetaminophen 325 Mg Tab) 650 mg PO Q4H PRN PRN Reason: Pain or Fever Stop: 10/25/22 10:50 Al Hydrox/Mg Hydrox/Simethicone (Aluminum/Magnesium Susp 30 Ml Udc) 15 ml PO Q4H PRN PRN Reason: Dyspepsia Stop: 10/25/22 10:50 Aripiprazole (Aripiprazole 5 Mg Tab) 7.[address] [facility] Stop: 10/25/22 20:59 Last Admin: 09/28/22 21:41 Dose: 7.5 mg Aspirin (Aspirin 81 Mg Ectab) [facility] Stop: 10/27/22 08:59 Last Admin: 09/29/22 09:27 Dose: 81 mg Atorvastatin Calcium (Atorvastatin 40 Mg Tab) [facility] Stop: 10/27/22 08:59 Last Admin: 09/29/22 09:27 Dose: 40 mg Levothyroxine Sodium (Levothyroxine Sodium 150 Mcg Tablet) [facility] Stop: 10/26/22 06:29 Last Admin: 09/29/22 06:11 Dose: 150 mcg Magnesium Hydroxide (Magnesium Hydroxide Susp 30 Ml Udc) 30 ml PO Q12H PRN PRN Reason: Constipation Stop: 10/25/22 10:50 Ondansetron HCl (Ondansetron Inj 2 Mg/Ml 2 Ml Vial) 4 mg IV Q6H PRN PRN Reason: Nausea Stop: 10/25/22 10:50 Polyethylene Glycol (Polyethylene (Miralax) 17 Gm Pack) 17 gm PO DAILY PRN PRN Reason: Constipation Stop: 10/25/22 10:50 Quetiapine Fumarate (Quetiapine Fumarate 25 Mg Tablet) 12.[address] [facility] Stop: 10/25/22 20:59 Last Admin: 09/28/22 21:42 Dose: 12.5 mg Trazodone HCl (Trazodone Hcl 100 Mg Tab) [address] [facility] Stop: 10/28/22 20:59 Last Admin: 09/28/22 21:42 Dose: 100 mg Venlafaxine HCl (Venlafaxine Hcl Xr 150 Mg Capxr) 300 mg PO [facility] Stop: 10/29/22 08:59 Last Admin: 09/29/22 09:26 Dose: 300 mg
[2022-09-29] MEDS ORDERED: VENLAFAXINE HCL XR 150 MG CAPXR PO SCH (09:00)
[2022-09-29] MEDS: ATORVASTATIN 40 MG TAB PO SCH (09:27)
[2022-09-29] MEDS: ASPIRIN 81 MG ECTAB PO SCH (09:27)
--- NOTE | 2022-09-29 10:50 | Hospitalist Progress Note ---
Date of Service September 29, 2022 Assessment & Plan (1) Stroke-like symptoms: Plan: resolved, per neuro brain MRI with extensive chronic small vessel ischemic disease throughout the cerebral hemispheres with mild generalized atrophy. There was concern for recurrent embolic TIA. CT angio head and neck recommended with consideration for 30 day event monitor. Low dose aspirin was started. Head CT: negative for ICH, midline shift or intracranial abnormality Brain MRI with and without contrast negative. Baseline Creatinine 1.6 EGFR > 30. Started on aspirin and statin as per neuro recommendations. recommends cta or carotid us for possible embolic TIA and also one moth heart monitor on discharge if tele ok here. Hold off on CTA due to elevated creatinine for now; carotids reveal no hemodynamically significant stenosis. ECHO 01/2022: EF 55-59%, G1DDx continue pt/ot- recommends rehab speech recommends speech therapy at discharge Await rehab placement (2) Bipolar disorder: Plan: As per H and P:Follows with jaimr Wilson terri 08/17; Dr. Tinoco. Feels his mental health is stable Takes Seroquel 12.5mg QHS , [place] 450 mg QHS , Abilify 7.5 mg QHS Takes Effexor 300 mg QHS; continue but will adjust Effexor to am Noted compliance with psych medications [place] level 1.6; Admitting Doc discussed with on-call psych regarding [place] level. Suggestion to hold [place] for now. Advised f If [place] level < 1.2; restart [place] in TWO days at reduced dose of 300 mg PO QHS. Recc repeat [place] level in 5 days after restart at 12 hours past last dose to ensure it remains < 1.2 Consider full psych consult if any further decline or lab changes [place] 300mg qHS to start on 09/29. Repeat lithium level at noon on 10/04 to ensure still <1.2 (3) Hypothyroidism: Plan: 06/2022: TSH , Free T4 1.36 Today TSH 22.07; Levothyroxine recently increased from 137 mcg to 150 mcg on 09/11/22. Continue with recent dose adjustment and keep at 150 mcg Free T4 0.83 needs followup TFTs as outpatient (4) Morbid obesity: Plan: outpatient nutrition consult recommended. (5) CKD (chronic kidney disease), stage III: Plan: baseline cr 1.6 currently at baseline. cont to monitor PRN Start heparin Full Code Dispo-to rehab when bed available Alecia Saldana DO [facility] Hospitalist Admission and Anticipated Discharge Date Admission Date: September 25, 2022 Subjective 77 yo M presented wtih right sided weakness and facial droop. Workup including head CT, brain MRI negative. Pt is feeling well and moving well without apparent deficit this morning We discussed his medications and changed effexor to am and cut trazdone by 50% with his permission. Review of Systems Review of Systems: All systems were reviewed and negative except as indicated abov.e Physical Exam Physical Exam: CONSTITUTIONAL: obese, vitals as above, generally well-appearing EYES: EOMI bilaterally, PERRL, normal conjunctivae, no scleral icterus ENT: external ear and nose normal, oropharynx clear, NECK: trachea midline RESPIRATORY: clear to auscultation bilaterally, no crackles, rales or wheezes, normal respiratory effort CARDIOVASCULAR: regular rate and rhythm, S1 and 2 heard without murmurs, gallops or rubs, no JVD, no peripheral edema CHEST: inspection of chest was normal GASTROINTESTINAL: soft, nontender, protuberant, ND, no guarding MUSCULOSKELETAL: strength 5/5 throughout, he can sit up independently in bed without issues. Head is normocephalic and atraumatic SKIN: warm and dry, NEUROLOGIC: patellar DTRs 2+ bilat. PERRL, EOMI, no facial palsy, no dysarthria. Touch, pain and proprioception normal. CN 2-12 grossly intact, no sensory deficit, normal cognition, normal speech, no tremor PSYCHIATRIC: alert cooperative and oriented to person, place and time. Euthymic mood, makes good eye contact, language grossly intact, recent and remote memory grossly intact. Results & Data Results & Data Vital Signs (Past 12 Hours) Vital Signs Temp Pulse Pulse Resp BP Pulse Ox O2 Del Method 09/29/22 07:48 36.7 C 79 16 136/81 94 Room Air 09/29/22 07:46 84 09/29/22 04:08 36.7 C 90 20 120/75 93 Room Air 09/29/22 00:18 36.7 C 93 H 20 133/69 95 Room Air Medications Administered Current Inpatient Medications Acetaminophen (Acetaminophen 325 Mg Tab) 650 mg PO Q4H PRN PRN Reason: Pain or Fever Stop: 10/25/22 10:50 Al Hydrox/Mg Hydrox/Simethicone (Aluminum/Magnesium Susp 30 Ml Udc) 15 ml PO Q4H PRN PRN Reason: Dyspepsia Stop: 10/25/22 10:50 Aripiprazole (Aripiprazole 5 Mg Tab) 7.5 mg PO HS [facility] Stop: 10/25/22 20:59 Last Admin: 09/28/22 21:41 Dose: 7.5 mg Aspirin (Aspirin 81 Mg Ectab) [facility] [place] Stop: 10/27/22 08:59 Last Admin: 09/29/22 09:27 Dose: 81 mg Atorvastatin Calcium (Atorvastatin 40 Mg Tab) [facility] Stop: 10/27/22 08:59 Last Admin: 09/29/22 09:27 Dose: 40 mg Heparin Sodium (Porcine) (Heparin Sod 5,000 Unit/0.5 Ml Vial) 5,000 units SQ Q8 [facility] Stop: 10/29/22 13:59 Levothyroxine Sodium (Levothyroxine Sodium 150 Mcg Tablet) [facility]cg [facility] Stop: 10/26/22 06:29 Last Admin: 09/29/22 06:11 Dose: 150 mcg [place] Carbonate ([place] Carbonate 300 Mg Tab) 300 mg PO [facility] Stop: 10/29/22 20:59 Magnesium Hydroxide (Magnesium Hydroxide Susp 30 Ml Udc) 30 ml PO Q12H PRN PRN Reason: Constipation Stop: 10/25/22 10:50 Ondansetron HCl (Ondansetron Inj 2 Mg/Ml 2 Ml Vial) 4 mg IV Q6H PRN PRN Reason: Nausea Stop: 10/25/22 10:50 Polyethylene Glycol (Polyethylene (Miralax) 17 Gm Pack) 17 gm PO DAILY PRN PRN Reason: Constipation Stop: 10/25/22 10:50 Quetiapine Fumarate (Quetiapine Fumarate 25 Mg Tablet) 12.5 mg PO [facility] Stop: 10/25/22 20:59 Last Admin: 09/28/22 21:42 Dose: 12.5 mg Trazodone HCl (Trazodone Hcl 100 Mg Tab) 100 mg PO HS [facility] Stop: 10/28/22 20:59 Last Admin: 09/28/22 21:42 Dose: 100 mg Venlafaxine HCl (Venlafaxine Hcl Xr 150 Mg Capxr) [facility] [place]: 10/29/22 08:59 Last Admin: 09/29/22 09:26 Dose: 300 mg
--- NOTE | 2022-09-29 13:32 | Discharge Summary ---
Discharge Summary Date of Service September 29, 2022 Notes For Next Care Provider Please recheck TFTs in 6-8 weeks after having patient adjust time of administration to daily before breakfast. TSH was 23 here. Please consider 30 day event monitor to rule out underlying arrhythmia. Medication Changes From Visit see [facility] Admission HPI Per Admitting Provider Mr. Darnell is a 77-year-old male that presents to the [facility] today with complaints of right sided weakness which has been going on for the last 4 to 5 days. Patient Candi is at his bedside and providing most of the medical details of his HPI due to patient having expressive aphasia. They do daily devotions between the 2 of them and he was noted to have some confusion and difficulty getting his words out starting 4 days ago. No other recent illnesses or contributing factors to his current presentation. Patient is able to participate in the conversation and does not appear to have receptive aphasia. Patient does deny headache, visual changes, auditory changes, lightheadedness, nausea, vomiting, diarrhea,, abdominal pain recent falls or trauma. Patient does report a fall in his bathroom 1 month ago which appears to be mechanical in nature as he slipped on the floor and fell backwards without hitting his head or losing consciousness. Patient is sitting in his bed in no apparent distress and is able to participate and follow commands. His overall strength seems to have improved since he arrived in the ED. patient continues to have right facial droop and expressive aphasia. NIH of 4 when I was in the room. Patient is an otherwise relatively healthy and independent individual. Patient does have a past medical history of bipolar disorder, anxiety and depression. This is managed by standpoint and he is compliant on his medications. Patient does not take any blood thinners or antiplatelet agents. Head CT negative for hemorrhagic or acute stroke, no midline shift or intracranial mass noted. MRI with and without contrast ordered. Neurology was able to see patient at bedside and will follow along based on imaging results. Unfortunately since his symptoms have progressed past multiple days he does not appear to be considered as a candidate for thrombolytic intervention. Patient will be admitted for further evaluation and management. Please see A/P for further details. Principal Dx & Hospital Course #1 = Principal Diagnosis (1) Stroke-like symptoms: (2) Bipolar disorder: (3) Hypothyroidism: (4) Morbid obesity: (5) CKD (chronic kidney disease), stage III: Updated Medication List Medication Instructions Recorded Confirmed Type aripiprazole 5 mg tablet (Abilify) 7.5 mg PO HS 08/21/18 09/25/22 History dextromethorphan-guaifenesin 30 1 tab PO Q12H PRN Congestion 08/21/18 09/25/22 History mg-600 mg tablet extended [id number] hr (Mucinex DM) trazodone 150 mg tablet 150 mg PO HS 08/21/18 09/25/22 History venlafaxine 150 mg 300 mg PO HS 08/21/18 09/25/22 History capsule,extended release 24 hr (Effexor XR) levothyroxine 150 mcg tablet 150 mcg PO DAILY 09/25/22 09/25/22 History lithium carbonate 450 mg 450 mg PO HS 09/25/22 09/25/22 History tablet,extended release quetiapine 25 mg tablet (Seroquel) 12.5 mg PO HS 09/25/22 09/25/22 History aspirin 81 mg tablet,delayed 81 mg PO DAILY #90 tabs 09/29/22 Rx release atorvastatin 40 mg tablet 40 mg PO QAM #30 tabs 09/29/22 Rx lithium carbonate 300 mg capsule 300 mg PO HS #30 caps 09/29/22 Rx trazodone 100 mg tablet 100 mg PO HS #30 tabs 09/29/22 Rx Hospital Stay Data Consultations 09/25/22 10:49 ED Decision to Admit Stat 09/25/22 10:53 Consult Neurology Routine Diagnostic Imagining Performed 09/25/22 09:21 CT head/brain wo con Stat 09/25/22 10:51 MR brain wo con Routine 09/27/22 14:18 US carotid doppler BI Routine Pending Results Patient Have Any Pending Studies at Discharge: No Discharge Instructions Given to Patient (Per Discharging Provider) Please take all medications as instructed on discharge list below. Please stop taking QUIETAPINE (SEROQUEL), reduce TRAZODONE to 100mg at night, and change when you take EFFEXOR and SYNTHROID to the morning. Please continue taking a lower dose of [place] (300mg) every evening. You should get a repeat lithium level on 10/04 around noon. Please have your psychiatrist review this level and adjust your dose appropriately as needed. For the Synthroid this should be taken one hour prior to food or other medications. Please ensure if you are taking TUMS or other acid reducing medications, or iron, calcium or other supplements, that you separate your thyroid medication by 4 hours. While admitted, your TSH was 23. This will likely go down to normal range once you change the time you take your Synthroid, as other medications may be interfering with the absorption of this. Please have your PCP repeat thyroid function tests again in 8 weeks time. It appeared to the neurologist who evaluated him that he may be having recurrent small emboli (small pieces of clot or cholesterol injuring the brain). Workup for this included a carotid ultrasound which was negative. It was recommended that you undergo an event monitor evaluation as outpatient to completely rule out any evidence of an underlying cardiac arrhythmia. As there was evidence of plaque in your brain, you should start a daily baby aspirin (81mg) and a cholesterol medication called Lipitor. Please review all medication changes with your outpatient PCP on followup. Please follow-up with your PCP in one week to touch base after returning home. It was a pleasure taking care of you! Please call if you have any questions or problems. You can reach a [facility] hospitalist on duty at [facility] 24 hours a day by calling [phone]. Take care of yourself. Alecia Saldana, DO [facility]
[2022-09-29] MEDS ORDERED: HEPARIN SOD 5,000 UNIT/0.5 ML VIAL SQ SCH (14:00)
[2022-09-29] MEDS ORDERED: LITHIUM CARBONATE 300 MG TAB PO SCH (21:00)
== END 2022-09-29 15:45 | disposition home health service (06) | DRG 69 ==
LOC: ED 09:08 → 2N 10:51 → SUATTDRO 10:51 → 2N 14:05

== ENCOUNTER 2023-04-28 07:35 | Observation (INO) ==
--- OUTSIDE RECORDS SUMMARY | 2023-04-28 07:44 | External Medical Summary | Summary of Care ---
Author Name Unknown Organization [facility] Address [address] [place] [address] Phone [phone] Care Team Providers Care Senior Environmental Scientist Name Role Phone Grant Faye MD Primary Care Provider [phone] Reason for Visit * Reason Comments Acute Pain in left side of body Encounter Details Date Type Department Care Team (Late st Contact Info) Description 04/20/2023 9:40 AM EST Office Visit [facility] [address] [place] [address] Mukesh Méndez MD [address] [place] [address] Rib pain on left side*; Stage 3b chronic kidney disease; Severe obesity (HCC) Allergies No known active allergiesdocumented as of this encounter (statuses as of 04/20/2023) Medications Medication Sig Dispensed Refills Start Date End Date Status VENLAFAXINE HCL ER 150 MG PO [id number]:B ipolar I disorder, most recent episode depressed (HCC) One pill by mouth twice a day, do not cut, crush or chew 60 Cap 5 10/10/2012 Active Levothyroxine Sodium 150 MCG Oral Tablet (Levoxyl)Indicati ons:Hypothyroidis m, unspecified type Take 1 tablet 30 minutes before first meal of the day. Ok to take along with other medications. 90 Tablet 3 09/11/2022 Active Gabapentin 300 MG Oral Capsule (Neurontin) Take 1 Capsule by mouth every night at bedtime. 0 Active Atorvastatin Calcium 40 MG Oral Tablet (Lipitor) Take 1 Tablet by mouth in the morning. 0 Active Worley Carbonate 300 MG Oral Capsule (Eskalith) Take 2 Capsules by mouth every night at bedtime. 0 Active ARIPiprazole 15 MG Oral Tablet (Abilify) Take 0.5 Tablets by mouth every night at bedtime. 0 Active traZODone HCl 100 MG Oral Tablet (Desyrel) Take 1 Tablet by mouth every night at bedtime. 0 Active Aspirin Low Dose 81 MG Oral Tablet Delayed Release (aspirin enteric coated) TAKE 1 TABLET BY MOUTH ONCE DAILY 90 Tablet 3 12/22/2022 Active Levothyroxine Sodium 137 MCG Oral TabletIndications :Hypothyroidism, unspecified type TAKE 1 TABLET BY MOUTH ONCE DAILY AT LEAST 30 MIN BEFORE BREAKFAST OR OTHER MEDICATIONS 100 Tablet 1 12/27/2022 Active Hydrocortisone Acetate 25 MG Rectal Suppository (Anusol HC)Indications:In ternal hemorrhoids INSERT ONE SUPPOSITORY INTO THE RECTUM TWICE A DAY FOR 2 WEEKS 28 Suppository 0 01/08/2023 Active Triamcinolone Acetonide 0.1 % External Cream (Aristocort)Indic ations:Penile rash Apply topically to affected area 2 times a day. To affected area. 60 g 0 03/02/2023 Active Baclofen 10 MG Oral Tablet (Lioresal) Take 1 Tablet by mouth in the morning and 1 Tablet before bedtime. 30 Tablet 1 04/20/2023 Active documented as of this encounter (statuses as of 04/20/2023) Active Problems Problem Noted Date Diagnosed Date Severe obesity 06/25/2022 Hyperlipidemia 06/25/2022 Granulomatous lung disease 06/05/2022 Bilateral hearing loss 05/14/2021 Stage 3b chronic kidney disease 04/15/2020 Overview: Per CKD protocol Acquired hypothyroidism 08/07/2019 Stasis dermatitis of both legs 02/11/2017 Bipolar I disorder, most recent episode depresse d 08/16/2012 documented as of this encounter (statuses as of 04/20/2023) Resolved Problems Problem Noted Date Diagnosed Date Resolved Date Bipolar disorder, in full re mission, most recent episode depressed 06/24/2021 02/07/2022 Hyperlipidemia 06/14/2015 02/11/2017 Kidney disease, chronic, sta ge III (GFR 30-59 ml/min) 08/20/2014 04/18/2020 Overview: Per CKD protocol #1 Tick bite of axillary region 10/19/2013 02/11/2017 Overview: left Toxic effect of venom 10/19/20132016 Overview: ICD-10 update of inactive term Obesity, Class I, BMI 30.0-3 4.9 (see actual BMI) 08/16/2012 02/11/2017 Overview: BMI= 31.95 08/16/12 Screen for colon cancer 08/16/201212/2016 Special screening for malign ant neoplasm of prostate 08/16/2012 02/11/2017 Screening for diabetes mellitus 08/16/2012 02/11/2017 Screening for cardiovascular condition 08/16/2012 02/11/2017 Hypothyroidism 08/16/2012 02/11/2017 Routine medical exam 08/16/2012 017 Need for shingles vaccine 08/16/2012 Obesity, Class II, BMI 35-39 .9, isolated (see actual BMI) 11/18/2009 03/30/2018 Overview: Per Obesity Protocol, #19 Hypothyroidism 10/15/2008 08/16/2012 BIPOLAR AFF, DEPR-UNSPEC 10/01/200505/2013 Overview: See Dr Hutson documented as of this encounter (statuses as of 04/20/2023) Immunizations Name Administration Dates Next Due PPD 11/22/2017 Pneumococcal Conjugate Vacc, 13 Valent (Prevnar) 10/15/2015 Pneumococcal Polysaccharide PPV23 (Pneumovax) SEASONAL INFLUENZA, PF, 6 M & Above, IM , (FLULAVAL or FLUZONE) 02/17/2018,04/01/2017 Seasonal Influenza, Quadrivalent, No Preserve, I M 03/09/2016,06/17/2015 Seasonal Influenza, Split, IIV3, With Preserve, Inj 05/11/2014 TD, Preservative Free 02/27/2008 TDAP (age 10 and older)(Boostrix) 06/22/2013 06/22/2023 Varicella Zoster Vaccine (Adult) 05/07/2014 Zoster Vaccine Recombinant (Shingrix) 08/17/2018 ,02/17/2018 documented as of this encounter Social History Tobacco Use Types Packs/Day Years Used Date Smoking Tobacco: Never Passive Smoke Exposure: Never Smokeless Tobacco: Never Tobacco Cessation:Counseling Given: Not Answered Alcohol Use Standard Drinks/Week Comments No 0 (1 standard drink = 0.6 oz pur e alcohol) none PHQ-2 Answer Date Recorded PHQ Adult Total Score 1 12/15/2021 Hunger Vital Sign Answer Date Recorded Within the past 12 months, y ou worried that your food would run out before you got the money to buy more. Never true 12/16/19 Within the past 12 months, t he food you bought just didn't last and you didn't have money to get more. Never true 12/15/2021 Sex and Gender Information Value Date Recorded Sex Assigned at Male 08/23/2018 1:06 PM EDT Gender Identity Male 08/23/2018 1:06 PM EDT Sexual Orientation Straight 08/23/2018 1: 06 PM EDT Job Start Date Occupation Industry Not on file Not on file Not on file documented as of this encounter Last Filed Vital Signs Vital Sign Reading Time Taken Comments Blood Pressure 118/78 04/20/2023 9:22 AM EST Pulse 76 04/20/2023 9:22 AM EST Temperature 36.9 C (98.4 F) 04/20/2023 9:22 AM ES T Respiratory Rate 18 04/20/2023 9:22 AM EST Oxygen Saturation 97% 04/20/2023 9:22 AM EST Inhaled Oxygen Concentration - - Weight 109.4 kg (241 lb 3.2 oz) 04/20/2023 9:22 AM EST Height - - Body Mass Index 36.67 03/02/2023 7:51 AM EDT documented in this encounter Patient Instructions * Patient Instructions* Mukesh Méndez MD - 04/20/2023 9:42 AM EST Try baclofen for rib pain as needed And observe pain, if not getting better by next Wednesday, please call me back for steroid and physical therapy documented in this encounter Progress Notes * Mukesh Méndez MD - 04/20/2023 9:42 AM EST Images from the original note were not included. Subjective Betito Darnell is a 77 year old male. Chief Complaint Patient presents with Acute Pain in left side of body HPI: Here for acute one week lt sided rib pain Localized Started right after he lifted weight for exercise Hx of back pain , sees chiropractor monthly Had tried tylenol ,minor help Pain is worse when he takes deep breath, moves around, toss around on the bed Denies associated chest discomfort, chest heaviness, chest pressure, chest tightness, edema, palpitations and shortness of breath, abd pain Known CKD , avoiding NSAID use usually Obesity, central , BMI 36 PMH: Patient Active Problem List Diagnosis Code Bipolar I disorder, most recent episode depressed ([facility]) F31.30 Stasis dermatitis of both legs I87.2 Acquired hypothyroidism E03.9 Stage 3b chronic kidney disease N18.32 Bilateral hearing loss H91.93 Granulomatous lung disease ([facility]) J84.10 Severe obesity ([facility]) E66.01 Hyperlipidemia E78.5 Current Outpatient Medications Medication Sig Dispense Refill VENLAFAXINE HCL ER 150 MG PO CP24 One pill by mouth twice a day, do not cut, crush or chew 60 Cap 5 Levothyroxine Sodium 150 MCG Oral Tablet (Levoxyl) Take 1 tablet 30 minutes before first meal of the day. Ok to take along with other medications. 90 Tablet 3 Gabapentin 300 MG Oral Capsule (Neurontin) Take 1 Capsule by mouth every night at bedtime. Atorvastatin Calcium 40 MG Oral Tablet (Lipitor) Take 1 Tablet by mouth in the morning. Worley Carbonate 300 MG Oral Capsule (Eskalith) Take 2 Capsules by mouth every night at bedtime. ARIPiprazole 15 MG Oral Tablet (Abilify) Take 0.5 Tablets by mouth every night at bedtime. traZODone HCl 100 MG Oral Tablet (Desyrel) Take 1 Tablet by mouth every night at bedtime. Aspirin Low Dose 81 MG Oral Tablet Delayed Release (aspirin enteric coated) TAKE 1 TABLET BY MOUTH ONCE DAILY 90 Tablet 3 Levothyroxine Sodium 137 MCG Oral Tablet TAKE 1 TABLET BY MOUTH ONCE DAILY AT LEAST 30 MIN BEFORE BREAKFAST OR OTHER MEDICATIONS 100 Tablet 1 Hydrocortisone Acetate 25 MG Rectal Suppository (Anusol HC) INSERT ONE SUPPOSITORY INTO THE RECTUM TWICE A DAY FOR 2 WEEKS 28 Suppository 0 Triamcinolone Acetonide 0.1 % External Cream (Aristocort) Apply topically to affected area 2 times a day. To affected area. 60 g 0 Baclofen 10 MG Oral Tablet (Lioresal) Take 1 Tablet by mouth in the morning and 1 Tablet before bedtime. 30 Tablet 1 No current facility-administered medications for this visit. Past Medical History: Diagnosis Date Bipolar disorder (HCC) prior -DR Hutson Hypothyroid Pneumonia Past Surgical History: Procedure Laterality Date COLONOSCOPY, DIAGNOSTIC (RECTUM) 03/30/2014 normal, repeat 5 yrs/COLONOSCOPY FLEXIBLE PROXIMAL DIAGNOSTIC performed by Reta Andrews MD at [facility]COPY [facility] COLONOSCOPY, DIAGNOSTIC (RECTUM) 10/31/2021 benign adenomatous polyps, diverticulosis / COLONOSCOPY FLEXIBLE PROXIMAL DIAGNOSTIC performed by Aniceto Arrington MD at [facility]OSCOPY [facility] COLORECTAL CANCER SCREEN; NOT AT RISK 09/04/2009 done normal exam repeat in 2 years for prep quality, needs 2 day prep DENTAL SURGERY PROCEDURE NEC no upper teeth EGD, FLEXIBLE, DIAGNOSTIC 10/31/2021 normal / ESOPHAGOGASTRODUODENOSCOPY (EGD), FLEXIBLE, TRANSORAL, DIAGNOSTIC performed by Aniceto Arrington MD at [facility]COPY [facility] REMOVAL OF APPENDIX 6 yo Review of patient's allergies indicates: No Known Allergies Family History Problem Relation Age of Onset Cancer Mother breast cancer Mental Disorder Mother question bipolar disease Cancer Father prostate cancer Other (Unknown cause) Sister No Known Problems Sister No Known Problems Sister No Known Problems Sister No Known Problems Sister Lung cancer Brother No Known Problems Brother Diabetes None Heart Disorder None Stroke None Family Status Relation Status Mo Fa Sis Sis Alive Sis Alive Sis Alive Sis Alive Bro Bro Alive NONE (Not Specified) NONE (Not Specified) NONE (Not Specified) Social History Socioeconomic History Marital status: Spouse name: Not on file Number of children: 5 Years of education: Not on file Highest education level: Not on file Occupational History Occupation: disabled Occupation: [employer] Tobacco Use Smoking status: Never Passive exposure: Never Smokeless tobacco: Never Vaping Use Vaping Use: Never used Substance and Sexual Activity Alcohol use: No Comment: none Drug use: No Comment: 1/2 pot of coffee every am Sexual activity: Not Currently Other Topics Concern Not on file Social History Narrative No pets. No mold. 31 years at [employer]. Disabled due to bipolar disease 1998.education: 12service: nohobbies/interests: woodworkingtransfusions: noexercise: nodiet: noreligion/gnosticism: interestingmarital status: 1964children: 5gc: 15ggc: 0pets: noexposure to violence/threats/abuse: nothings to improve: depression Social Determinants of Health Financial Resource Strain: Not on file Food Insecurity: No Food Insecurity (12/15/2021) Hunger Vital Sign Worried About Running Out of Food in the Last Year: Never true Ran Out of Food in the Last Year: Never true Transportation Needs: Not on file Physical Activity: Not on file Stress: Not on file Social Connections: Not on file Intimate Partner Violence: Not on file Housing Stability: Not on file Review of Systems Constitutional: Positive for activity change. Negative for appetite change, chills, diaphoresis, fatigue, fever and unexpected weight change. Respiratory: Negative for cough, chest tightness, shortness of breath and wheezing. Cardiovascular: Negative for chest pain, palpitations and leg swelling. Musculoskeletal: Positive for arthralgias (lt rib pain) and back pain. Negative for neck pain. Neurological: Negative for dizziness and light-headedness. Psychiatric/Behavioral: Positive for sleep disturbance (rib pain). Negative for agitation and behavioral problems. The patient is nervous/anxious. Objective BP 118/78 | Pulse 76 | Temp 36.9 C (98.4 F) (Infrared ) | Resp 18 | Wt 109.4 kg (241 lb 3.2 oz)| SpO2 97% | BMI 36.67 kg/m | BSA 2.29 m Physical Exam Constitutional: General: He is not in acute distress. Appearance: Normal appearance. He is obese. He is not ill-appearing, toxic- appearing or diaphoretic. HENT: Head: Normocephalic and atraumatic. Nose: Nose normal. Eyes: Extraocular Movements: Extraocular movements intact. Cardiovascular: Rate and Rhythm: Normal rate and regular rhythm. Pulmonary: Effort: Pulmonary effort is normal. No respiratory distress. Breath sounds: No wheezing, rhonchi or rales. Chest: Chest wall: Tenderness present. Musculoskeletal: Right lower leg: No edema. Left lower leg: No edema. Neurological: General: No focal deficit present. Mental Status: He is alert and oriented to person, place, and time. Psychiatric: Behavior: Behavior normal. ASSESSMENT/PLAN: Rib pain on left side (Primary) Stage 3b chronic kidney disease Severe obesity (HCC) Other orders - Baclofen 10 MG Oral Tablet (Lioresal); Take 1 Tablet by mouth in the morning and 1 Tablet before bedtime. Patient Instructions Try baclofen for rib pain as needed And observe pain, if not getting better by next Wednesday, please call me back for steroid and physical therapy Mukesh Méndez MD documented in this encounter Nursing Notes * Batsheva Casiano LPN - 04/20/2023 9:20 AM EST Chief Complaint Patient presents with Acute Pain in left side of body documented in this encounter Plan of Treatment Upcoming Encounters Date Type Department Care Team (Late st Contact Info) Description 06/28/2023 8:20 AM EST Office Visit [facility] [address] [place] [address] Grant Faye MD [address] [place] [address] Health Maintenance Due Date Last Done Comments COVID-19 Vaccine (#1) 01/04/1946 CKD PHOS USE SMARTSET 30155 06/24/202206/07, 08/21/2018, 07/25/2018 Depression Screening 12/15/2022 12/15/2021 Influenza Vaccine (FLU shot) (#1) 2023 02/17/2018, 04/01/2017, 03/09/2016, Additional history exists DTaP,Tdap,and Td Vaccines (2 - Td or Tdap) 06/22/2023 06/22/2013, 02/27/2008 Albumin/Creatinine Ratio 06/25/2023 023, 05/09/2021, 08/23/2018 GFR 09/17/2023 03/18/2023, 10/05, 06/25/2022, Additional history exists CKD HGB USE SMARTSET 81525 01/15/202401/14, 01/14/2023, 12/10/2022, Additional history exists TSH 03/18/2024 03/18/2023, 10/05, 06/25/2022, Additional history exists Pneumococcal Vaccine: 65+ Years Completed 10/15/2015, 10/15/2008 Zoster Vaccines Completed 08/17/2018, 02/05, 05/07/2014 COLONOSCOPY-EVERY 5 YRS AGES 18-100 Discontinued 10/31/2021, 10/31/2021, 03/30/2014, Additional history exists GARDASIL-HPV IMMUNIZATION SERIES Aged Out No longer eligible based on patient's age to complete this topic Hepatitis B Aged Out No longer eligi ble based on patient's age to complete this topic MENINGOCOCCAL (MENACTRA/MENVEO) Aged Out No longer eligible based on patient's age to complete this topic documented as of this encounter Medical Devices Not on filedocumented as of this encounter Visit Diagnoses Diagnosis Rib pain on left side- Primary Chest pain, unspecified Stage 3b chronic kidney disease Severe obesity (HCC) Morbid obesity documented in this encounter Additional Health Concerns Infection Onset Date Last Indicated Resolved Time COVID-19 (confirmed) 11/15/2021 11/15/2021 documented as of this encounter Care Teams Senior Environmental Scientist Relationship Specialty Start Date End Date Grant Faye MD [address] [place] [address] PCP - General Family Medicine 02/09/17 documented as of this encounter"
--- OUTSIDE RECORDS SUMMARY | 2023-04-28 07:45 | External Medical Summary ---
Author Name Unknown Address Unknown Organization [id number]:[facility] [place] [address] [place] [address] Laboratory Report Ordering Provider Test Date Status MIKIE ANTONY 01/14/2023 10:42:18 Final Observation Date Value Abnormality Reference (Units ) Status [place] [Moles/volume] in Blood 01/14/2023 10:42:18 0.4 Below low normal 0.6-1.2 (mmol/L) Final Performing Location [facility] [place] [address] [place] [address]
--- OUTSIDE RECORDS SUMMARY | 2023-04-28 07:45 | External Medical Summary ---
Author Name Unknown Address Unknown Organization [id number]:[facility] [place] [address] [facility] [address] Laboratory Report Ordering Provider Test Date Status MIKIE ANTONY 03/18/2023 08:10:04 Final Observation Date Value Abnormality Reference (Units ) Status TSH 03/18/2023 08:10:04 5.75 Above high normal 0. 27-4.20 (uIU/mL) Final Performing Location LABORATORY [facility] - [address] [facility] [address]
--- OUTSIDE RECORDS SUMMARY | 2023-04-28 07:45 | External Medical Summary | Summary of Care ---
Author Name Unknown Organization [facility] Address [address] [place] [address] Phone [phone] Care Team Providers Care Funding Analyst Name Role Phone Grant Faye MD Primary Care Provider +1- [phone] Reason for Visit * Reason Comments Outpatient Testing Encounter Details Date Type Department Care Team Description 12/10/2022 Laboratory [facility], [place] [address] [place] [address] [facility] [address] [place] [address] BRBPR (bright red blood per rectum) Allergies No known active allergiesdocumented as of this encounter (statuses as of 12/10/2022) Medications Medication Sig Dispensed Refills Start Date End Date Status VENLAFAXINE HCL ER 150 MG PO [id number]:B ipolar I disorder, most recent episode depressed (HCC) One pill by mouth twice a day, do not cut, crush or chew 60 Cap 5 10/10/2012 Active Levothyroxine Sodium 150 MCG Oral Tablet (Levoxyl)Indicati ons:Hypothyroidis m, unspecified type Take 1 tablet 30 minutes before first meal of the day. Ok to take along with other medications. 90 Tablet 3 09/11/2022 Active Aspirin 81 MG Oral Tablet Delayed Release Take 1 Tablet by mouth in the morning. 0 Active Gabapentin 300 MG Oral Capsule (Neurontin) Take 1 Capsule by mouth every night at bedtime. 0 Active Atorvastatin Calcium 40 MG Oral Tablet (Lipitor) Take 1 Tablet by mouth in the morning. 0 Active [place] Carbonate 300 MG Oral Capsule (Eskalith) Take 2 Capsules by mouth every night at bedtime. 0 Active ARIPiprazole 15 MG Oral Tablet (Abilify) Take 0.5 Tablets by mouth every night at bedtime. 0 Active traZODone HCl 100 MG Oral Tablet (Desyrel) Take 1 Tablet by mouth every night at bedtime. 0 Active Hydrocortisone Acetate 25 MG Rectal Suppository (Anusol-HC)Indica tions:Internal hemorrhoids Insert a suppository into the rectum twice per day for 2 weeks. 28 Suppository 1 12/10/2022 Active documented as of this encounter (statuses as of 12/10/2022) Active Problems Problem Noted Date Severe obesity 06/25/2022 Hyperlipidemia 06/25/2022 Granulomatous lung disease 06/05/2022 Bilateral hearing loss 05/14/2021 Stage 3b chronic kidney disease 04/15/20 Overview: Per CKD protocol Acquired hypothyroidism 08/07/2019 Stasis dermatitis of both legs 7 Bipolar I disorder, most recent episode depressed 08/16/2012 documented as of this encounter (statuses as of 12/10/2022) Resolved Problems Problem Noted Date Resolved Date Bipolar disorder, in full re mission, most recent episode depressed 06/24/2021 02/07/2022 Hyperlipidemia 06/14/2015 02/11/2017 Kidney disease, chronic, stage III (GFR 30-59 ml /min) 08/20/2014 04/18/2020 Overview: Per CKD protocol #1 Tick bite of axillary region 10/19/201312/2016 Overview: left Toxic effect of venom 10/19/2013 02/11/2017 Overview: ICD-10 update of inactive term Obesity, Class I, BMI 30.0-34.9 (see actual BMI) 08/16/2012 02/11/2017 Overview: BMI= 31.95 08/16/12 Screen for colon cancer 08/16/2012 02/12/20 17 Special screening for malignant neoplasm of pros fields 08/16/2012 02/11/2017 Screening for diabetes mellitus 08/16/2012 02/11/2017 Screening for cardiovascular condition 3 02/11/2017 Hypothyroidism 08/16/2012 02/11/2017 Routine medical exam 08/16/2012 02/11/2017 Need for shingles vaccine 08/16/20122016 Obesity, Class II, BMI 35-39.9, isolated (see ac tual BMI) 11/18/2009 03/30/2018 Overview: Per Obesity Protocol, #19 Hypothyroidism 10/15/2008 08/16/2012 BIPOLAR AFF, DEPR-UNSPEC 10/01/2005 013 Overview: See Dr Hutson documented as of this encounter (statuses as of 12/10/2022) Immunizations Name Administration Dates Next Due PPD 11/22/2017 Pneumococcal Conjugate Vacc, 13 Valent (Prevnar) 10/15/2015 Pneumococcal Polysaccharide PPV23 (Pneumovax) Seasonal Influenza, Quadriva lent, No Preserve, 6 Mons & Above, IM 02/17/2018,04/01/2017 Seasonal Influenza, Quadrivalent, No Preserve, I M 03/09/2016,06/17/2015 Seasonal Influenza, Split, IIV3, With Preserve, Inj 05/11/2014 TD, Preservative Free 02/27/2008 TDAP (age 10 and older)(Boostrix) 06/22/2013 06/22/2023 Varicella Zoster Vaccine (Adult) 05/07/2014 Zoster Vaccine Recombinant (Shingrix) 08/17/2018 ,02/17/2018 documented as of this encounter Social History Tobacco Use Types Packs/Day Years Used Date Smoking Tobacco: Never Smokeless Tobacco: Never Alcohol Use Standard Drinks/Week Comments No 0 (1 standard drink = 0.6 oz pur e alcohol) none Food Insecurity Answer Date Recorded Within the past 12 months, y ou worried that your food would run out before you got money to buy more. Never true 12/15/2021 Within the past 12 months, t he food you bought just didn't last and you didn't have money to get more. Never true 12/15/2021 Sex Assigned at Date Recorded Male 08/23/2018 1:06 PM E [employer] Job Start Date Occupation Industry Not on file Not on file Not on file documented as of this encounter Plan of Treatment Upcoming Encounters Date Type Specialty Care Team Description 12/16/2022 Nurse Only Ancillary Nurse [facility] [address] [phone] 06/28/2023 Office Visit Family Medicine Grant Faye MD [address] [phone] Pending Results Name Type Priority Associated Diagnoses Date /Time HGB Lab Routine BRBPR (bright red blood per rectum) 12/10/2022 2:38 PM EDT Health Maintenance Due Date Last Done Comments COVID-19 Vaccine (#1) 01/04/1946 CKD PHOS USE SMARTSET 34458 06/24/202206/07, 08/21/2018, 07/25/2018 Depression Screening, Annual for Pts 12 and Over 12/15/2022 12/15/2021 Influenza Vaccine (FLU shot) (#1) 2023 02/17/2018, 04/01/2017, 03/09/2016, Additional history exists GFR 04/16/2023 10/14/2022, 06/07, 04/27/2022, Additional history exists DTaP,Tdap,and Td Vaccines (2 - Td or Tdap) 06/22/2023 06/22/2013, 02/27/2008 Albumin/Creatinine Ratio 06/25/2023 023, 05/09/2021, 08/23/2018 CKD HGB USE SMARTSET 99404 06/25/202306/25, 04/27/2022, 10/27/2021, Additional history exists TSH 10/15/2023 10/14/2022, 06/07, 02/03/2022, Additional history exists Pneumococcal Vaccine: 65+ Years Completed 10/15/2015, 10/15/2008 Zoster Vaccines Completed 08/17/2018, 02/05, 05/07/2014 COLONOSCOPY-EVERY 5 YRS AGES 18-100 Discontinued 10/31/2021, 10/31/2021, 03/30/2014, Additional history exists Hepatitis C Screening Completed 06/25/2022 , 06/25/2022, 06/25/2022 GARDASIL-HPV IMMUNIZATION SERIES Aged Out No longer [...] as of this encounter Visit Diagnoses Diagnosis BRBPR (bright red blood per rectum) Hemorrhage of rectum and anus documented in this encounter Additional Health Concerns Infection Onset Date Last Indicated Resolved Time COVID-19 (confirmed) 11/15/2021 11/15/2021 documented as of this encounter Care Teams Funding Analyst Relationship Specialty Start Date End Date Grant Faye MD [address], [place] [id number] PCP - General Family Medicine 02/09/17 documented as of this encounter
--- OUTSIDE RECORDS SUMMARY | 2023-04-28 07:45 | External Medical Summary | Summary of Care ---
Author Name Unknown Organization [facility] Address [address] [place] [address] Phone [phone] Care Team Providers Care Purchasing Administrative Assistant Name Role Phone Grant Faye MD Primary Care Provider +1- [phone] Reason for Visit * Reason Comments Penis Pain Pt states that he is having issues with his penis about a month Encounter Details Date Type Department Care Team Description 03/02/2023 Office Visit [facility] [address] [place] [address] Miguel Delgado MD [address] [place] [address] Penile rash*; Internal hemorrhoids; Acquired hypothyroidism; Severe obesity (HCC); Bipolar I disorder, most recent episode depressed (HCC) Allergies No known active allergiesdocumented as of this encounter (statuses as of 03/02/2023) Medications Medication Sig Dispensed Refills Start Date End Date Status VENLAFAXINE HCL ER 150 MG PO [id number]:B ipolar I disorder, most recent episode depressed [...] by mouth in the morning. 0 Active [place] Carbonate 300 MG Oral Capsule (Eskalith) Take [...] affected area. 60 g 0 03/02/2023 Active documented as of this encounter (statuses as of 03/02/2023) Active Problems Problem Noted Date Severe obesity 06/25/2022 Hyperlipidemia 06/25/2022 Granulomatous lung disease 06/05/2022 Bilateral hearing loss 05/14/2021 Stage 3b chronic kidney disease 04/15/20 20 Overview: Per CKD protocol Acquired hypothyroidism 08/07/2019 Stasis dermatitis of both legs 7 Bipolar I disorder, most recent episode depressed 08/16/2012 documented as of this encounter (statuses as of 03/02/2023) Resolved Problems Problem Noted Date Resolved Date [...] as of this encounter (statuses as of 03/02/2023) Immunizations Name Administration Dates Next Due PPD 11/22/2017 Pneumococcal Conjugate Vacc, 13 Valent (Prevnar) 10/15/2015 Pneumococcal Polysaccharide PPV23 (Pneumovax) Seasonal Influenza, PF, 6 mo ns & Above, IM , (Flulaval) 02/17/2018,04/01/2017 Seasonal Influenza, Quadrivalent, No Preserve, I M 03/09/2016,06/17/2015 Seasonal Influenza, Split, IIV3, With Preserve, Inj 05/11/2014 TD, Preservative Free 02/27/2008 TDAP (age 10 and older)(Boostrix) 06/22/2013 06/22/2023 Varicella Zoster Vaccine (Adult) 05/07/2014 Zoster Vaccine Recombinant (Shingrix) 08/17/2018 ,02/17/2018 documented as of this encounter Social History Tobacco Use Types Packs/Day Years Used Date Smoking Tobacco: Never Smokeless Tobacco: Never Tobacco Cessation:Counseling Given: [...] Sign Reading Time Taken Comments Blood Pressure 116/82 03/02/2023 7:51 AM EDT Pulse 75 03/02/2023 7:51 AM EDT Temperature 36 C (96.8 F) 03/02/2023 7:51 AM EDT Respiratory Rate 16 03/02/2023 7:51 AM EDT Oxygen Saturation 98% 03/02/2023 7:51 AM EDT Inhaled Oxygen Concentration - - Weight 106.4 kg (234 lb 8 oz) 03/02/2023 7:51 AM EDT Height 172.7 cm (5' 8") 03/02/2023 7:51 AM EDT Body Mass Index 35.66 03/02/2023 7:51 AM EDT documented in this encounter Progress Notes * Miguel Delgado MD - 03/02/2023 8:04 AM EDT Images from the original note were not included. Assessment and Plan 1. Penile rash Unclear etiology of patient's penile rash. Description sounds like contact dermatitis. Patient declined genitourinary exam in office today. He was aware that this inhibits inability to give a diagnosis or further treatment. At this point we will prescribe triamcinolone cream to be used for no more than one-week at a time. If rash returns or is not improving recommend repeat office visit for physical exam and further evaluation. - Triamcinolone Acetonide 0.1 % External Cream (Aristocort); Apply topically to affected area 2 times a day. To affected area. Dispense: 60 g; Refill: 0 2. Internal hemorrhoids Improved with Anusol suppositories. 3. Acquired hypothyroidism TSH at goal. 4. Severe obesity (HCC) 5. Bipolar I disorder, most recent episode depressed (HCC) Stable on lithium and Abilify. Wrap-Up Follow up as needed. History of Present Illness The patient is a 77 year old male with past medical history of hypothyroidism, HLD, obesity, CKD3, bipolar 1 disorder who presents with mens health issue. 77-year-old male who presents to discuss rash on his penis present for about 4 months. He states there is a red papular rash on the shaft of his penis that is pruritic. The rash does not extend to the groin. He noted mild swelling intermittently of the penis though denies swelling of the scrotum, groin, bilateral lower extremities. He obtained triamcinolone cream from an outside source and has been using that over the last number of days. This has resulted in improvement in the rash. He is not sexually active and has not been sexually active for more than 20 years. When asked to proceed to physical exam patient declined this provider looking at the penis and groin. I did discuss that it is difficult to diagnose and treat his complaint without looking at the area. He stated that he "uses his judgment" about the area. Physical Exam Vitals: 03/02/23 0751 Temp: 36 C (96.8 F) Pulse: 75 Resp: 16 SpO2: 98% BP: 116/82 BMI: 35.66 Physical Exam Physical Exam Vitals reviewed. Constitutional: General: He is not in acute distress. Pulmonary: Effort: Pulmonary effort is normal. No respiratory distress. Genitourinary: Comments: Patient declined genitourinary exam. Neurological: General: No focal deficit present. Mental Status: He is alert. documented in this encounter Nursing Notes * PIERRE Dorsey - 03/02/2023 7:51 AM EDT Betito Darnell is a 77 year old male who presents today for Chief Complaint Patient presents with Penis Pain Pt states that he is having issues with his penis about a month documented in this encounter Plan of Treatment Upcoming Encounters Date Type Specialty Care Team Description 06/28/2023 [facility] [address] [facility] [id number] Health Maintenance Due Date Last Done Comments COVID-19 Vaccine (#1) 01/04/1946 CKD PHOS USE SMARTSET 17427 06/24/202206/07, 08/21/2018, 07/25/2018 Depression Screening 12/15/2022 12/15/2021 Influenza Vaccine (FLU shot) (#1) 2023 02/17/2018, 04/01/2017, 03/09/2016, Additional history exists GFR 04/16/2023 10/14/2022, 06/07, 04/27/2022, Additional history exists DTaP,Tdap,and Td Vaccines (2 - Td or Tdap) 06/22/2023 06/22/2013, 02/27/2008 Albumin/Creatinine Ratio 06/25/2023 023, 05/09/2021, 08/23/2018 TSH 10/15/2023 10/14/2022, 06/07, 02/03/2022, Additional history exists CKD HGB USE SMARTSET 91726 01/15/202401/14, 01/14/2023, 12/10/2022, Additional history exists Pneumococcal Vaccine: 65+ Years [...] as of this encounter Visit Diagnoses Diagnosis Penile rash- Primary Unspecified disorder of penis Internal hemorrhoids Internal hemorrhoids without mention of complication Acquired hypothyroidism Unspecified hypothyroidism Severe obesity (HCC) Morbid obesity Bipolar I disorder, most recent episode depressed (HCC) Bipolar I disorder, most recent episode (or current) depressed, unspecified documented in this encounter Additional Health Concerns Infection Onset Date Last Indicated Resolved Time COVID-19 (confirmed) 11/15/2021 11/15/2021 documented as of this encounter Care Teams Purchasing Administrative Assistant Relationship Specialty Start Date End Date Grant Faye MD [address], [place] [phone] PCP - General Family Medicine 02/09/17 documented as of this encounter
--- OUTSIDE RECORDS SUMMARY | 2023-04-28 07:45 | External Medical Summary | Summary of Care ---
Author Name Unknown Organization [facility] Address [address] [place] [address] Phone [phone] Care Team Providers Care Offset Label Rewinder Name Role Phone Shelby Devine MD Primary Care Provider +1- [phone] Reason for Visit * Reason Comments eRx-Medication Refill Encounter Details Date Type Department Care Team Description 01/08/[address] [facility] [address] [place] [address] Shelby Devine MD [address] [place] [address] Internal hemorrhoids Allergies No known active allergiesdocumented as of this encounter (statuses as of 01/08/2023) Medications Medication Sig Dispensed Refills Start Date End Date Status VENLAFAXINE HCL ER 150 MG PO [id number]: Bipolar I disorder, most recent episode depressed (HCC) One pill by mouth twice a day, do not cut, crush or chew 60 Cap 5 3 Active Levothyroxine Sodium 150 MCG Oral Tablet (Levoxyl)Indicat ions:Hypothyroid ism, unspecified type Take 1 tablet 30 minutes before first meal of the day. Ok to take along with other medications. 90 Tablet 3 3 Active Gabapentin 300 MG Oral Capsule (Neurontin) Take 1 Capsule by mouth every night at bedtime. 0 Active Atorvastatin Calcium 40 MG Oral Tablet (Lipitor) Take 1 Tablet by mouth in the morning. 0 Active [place] Carbonate 300 MG Oral Capsule (Eskalith) Take [...] BY MOUTH ONCE DAILY 90 Tablet 3 3 Active Levothyroxine Sodium 137 MCG Oral TabletIndication s:Hypothyroidism , unspecified type TAKE 1 TABLET BY MOUTH ONCE DAILY AT LEAST 30 MIN BEFORE BREAKFAST OR OTHER MEDICATIONS 100 Tablet 1 3 Active Hydrocortisone Acetate 25 MG Rectal Suppository (Anusol HC)Indications:I nternal hemorrhoids INSERT ONE SUPPOSITORY INTO THE RECTUM TWICE A DAY FOR 2 WEEKS 28 Suppository 0 3 Active Hydrocortisone Acetate 25 MG Rectal Suppository (Anusol-HC)Indic ations:Internal hemorrhoids Insert a suppository into the rectum twice per day for 2 weeks. 28 Suppository 1 3 01/09/20 23 Discontinued documented as of this encounter (statuses as of 01/08/2023) Active Problems Problem Noted Date Severe obesity 06/25/2022 Hyperlipidemia 06/25/2022 Granulomatous lung disease 06/05/2022 Bilateral hearing loss 05/14/2021 Stage 3b chronic kidney disease 04/15/20 20 Overview: Per CKD protocol Acquired hypothyroidism 08/07/2019 Stasis dermatitis of both legs 7 Bipolar I disorder, most recent episode depressed 08/16/2012 documented as of this encounter (statuses as of 01/08/2023) Resolved Problems Problem Noted Date Resolved Date [...] as of this encounter (statuses as of 01/08/2023) Immunizations Name Administration Dates Next Due PPD [...] on file documented as of this encounter Miscellaneous Notes * Telephone Encounter - Shelby Devine MD - 01/08/2023 3:24 PM EDTSigned Prescriptions: Disp Refills Hydrocortisone Acetate 25 MG Rectal Suppos*28 Sup*0 Sig: INSERTONE SUPPOSITORY INTO THE RECTUM TWICE A DAY FOR 2 WEEKSAuthorizing Provider: SHELBY DEVINE---- * Telephone Encounter - Kathy Maldonado LPN - 01/08/2023 11:15 AM EDTPending Prescriptions: Disp Refills Hydrocortisone Acetate 25 MG Rectal Suppos*28 Sup*0 Sig: INSERT ONE SUPPOSITORY INTO THE RECTUM TWICE A DAY FOR 2 WEEKS * Telephone Encounter - Kathy Maldonado LPN - 01/08/2023 11:15 AM EDT Provider to address: Shelby Devine MD Reason for Call: eRx-Medication Refill Contact: [facility] Contact Type: Medication Outcome: Pending Prescriptions: Disp Refills Hydrocortisone Acetate 25 MG Rectal Suppo*28 Sup*0 Sig: INSERT ONE SUPPOSITORY INTO THE RECTUM TWICE A DAY FOR 2 WEEKS Last Visit: 12/10/2022 (in office), Visit date not found (telemedicine) Next Visit: 06/28/2023 Last date the medication was ordered: 12/10/2022 Patient Active Problem List Diagnosis Code Bipolar I disorder, most recent episode depressed ([facility]) F31.30 Stasis dermatitis of both legs I87.2 Acquired hypothyroidism E03.9 Stage 3b chronic kidney disease N18.32 Bilateral hearing loss H91.93 Granulomatous lung disease ([facility]) J84.10 Severe obesity ([facility]) E66.01 Hyperlipidemia E78.5 Labs: Lab Results Component Value Date/Time CREATININE - [facility] 1.6 (H) 10/14/2022 08:02 AM CREATININE - [facility] 1.6 (H) 06/17/2020 10:18 AM CREATININE, RANDOM URINE - [facility] 116 06/25/2022 08:55 AM CREATININE, RANDOM URINE - [facility] 25 08/23/2018 01:42 PM CREATININE-OU[facility] 1.70 (A) 08/21/2018 12:00 AM Lab Results Component Value Date/Time POTASSIUM - [facility] 4.3 10/14/2022 08:02 AM POTASSIUM - [facility] 4.4 06/17/2020 10:18 AM POTASSIUM-OUTSIDE LAB 4.0 08/21/2018 12:00 AM Lab Results Component Value Date/Time TSH - [facility] 2.53 10/14/2022 08:02 AM TSH - [facility] 3.36 06/17/2020 10:18 AM TSH - OUTSIDE [facility] 3.040 08/21/2018 12:00 AM Lab Results Component Value Date/Time LDL CHOLESTEROL (CALCULATED) - [facility] 114 06/17/2020 10:18 AM LDL CHOLESTEROL (CALCULATED) - [facility] 114 02/07/2020 08:37 AM LDL CHOLESTEROL (DIRECT MEASURE) - [facility] 97 06/25/2022 08:55 AM LDL CHOLESTEROL (DIRECT MEASURE) - [facility] 95 02/03/2022 10:54 AM LDL CHOLESTEROL (DIRECT MEASURE) - [facility] NOT APPLICABLE 06/17/2020 10:18 AM Lab Results Component Value Date/Time ALT - [facility] 16 12/16/2021 03:12 PM ALT - [facility] 16 06/17/2020 10:18 AM Hemoglobin AIC Results: Lab Results Component Value Date/Time HEMOGLOBIN A1C - [facility] 5.3 06/24/2021 08:02 AM HEMOGLOBIN A1C - [facility] 5.7 (H) 06/17/2020 10:18 AM HEMOGLOBIN A1C - [facility] 5.2 02/07/2020 08:37 AM Total Time including non face to face (minutes): 5 * Telephone Encounter - Kelly Rubio - 01/08/2023 10:23 AM EDTPending Prescriptions: Disp Refills Hydrocortisone Acetate 25 MG Rectal Suppos*28 Sup*0 Sig: INSERT ONE SUPPOSITORY INTO THE RECTUM TWICE A DAY FOR 2 WEEKS documented in this encounter Plan of Treatment Upcoming Encounters Date Type Specialty Care Team Description 06/28/2023 Office Visit Family Medicine Shelby Devine MD [address] [place] [address] Health Maintenance Due Date Last Done Comments COVID-19 Vaccine (#1) 01/04/1946 CKD PHOS USE SMARTSET 19228 06/24/202206/07, 08/21/2018, 07/25/2018 Depression Screening, Annual for Pts 12 and Over 12/15/2022 12/15/2021 Influenza Vaccine (FLU shot) (#1) 2023 02/17/2018, 04/01/2017, 03/09/2016, Additional history exists GFR 04/16/2023 10/14/2022, 06/07, 04/27/2022, Additional history exists DTaP,Tdap,and Td Vaccines (2 - Td or Tdap) 06/22/2023 06/22/2013, 02/27/2008 Albumin/Creatinine Ratio 06/25/2023 023, 05/09/2021, 08/23/2018 TSH 10/15/2023 10/14/2022, 06/07, 02/03/2022, Additional history exists CKD HGB USE SMARTSET 25177 12/11/202312/10, 06/25/2022, 04/27/2022, Additional history exists Pneumococcal Vaccine: 65+ Years [...] as of this encounter Visit Diagnoses Diagnosis Internal hemorrhoids Internal hemorrhoids without mention of complication documented in this encounter Additional Health Concerns Infection Onset Date Last Indicated Resolved Time COVID-19 (confirmed) 11/15/2021 11/15/2021 documented as of this encounter Care Teams Offset Label Rewinder Relationship Specialty Start Date End Date Shelby Devine MD [address] [place] [address] PCP - General Family Medicine 02/09/17 documented as of this encounter
--- OUTSIDE RECORDS SUMMARY | 2023-04-28 07:45 | External Medical Summary | Summary of Care ---
Author Name Unknown Organization [facility] Address [address] [place] [address] Phone [phone] Care Team Providers Care Airplane Fueler Name Role Phone Grant Faye MD Primary Care Provider [phone]- [phone] Reason for Visit * Reason Comments Outpatient Testing Encounter Details Date Type Department Care Team Description 01/14/2023 Laboratory [facility], [facility] [address] [place] [address] [facility] [address] [place] [address] SOB (shortness of breath); Swelling; Encounter for long-term (current) use of other medications Allergies No known active allergiesdocumented as of this encounter (statuses as of 01/14/2023) Medications Medication Sig Dispensed Refills Start Date End Date Status VENLAFAXINE HCL ER 150 MG PO [id number] ipolar I disorder, most recent episode depressed [...] by mouth in the morning. 0 Active [place] Carbonate 300 MG Oral Capsule (Eskalith) Take [...] 2 WEEKS 28 Suppository 0 01/08/2023 Active documented as of this encounter (statuses as of 01/14/2023) Active Problems Problem Noted Date Severe obesity 06/25/2022 Hyperlipidemia 06/25/2022 Granulomatous lung disease 06/05/2022 Bilateral hearing loss 05/14/2021 Stage 3b chronic kidney disease 04/15/20 20 Overview: Per CKD protocol Acquired hypothyroidism 08/07/2019 Stasis dermatitis of both legs 7 Bipolar I disorder, most recent episode depressed 08/16/2012 documented as of this encounter (statuses as of 01/14/2023) Resolved Problems Problem Noted Date Resolved Date [...] as of this encounter (statuses as of 01/14/2023) Immunizations Name Administration Dates Next Due PPD [...] Family Medicine Grant Faye MD [address] [place] [address] Pending Results Name Type Priority Associated Diagnoses Date /Time CBC WITH WBC DIFFERENTIAL Lab STAT SOB (shortness of breath) Swelling 01/14/2023 10:33 AM EDT CBC Lab STAT SOB (shortness of breath) Swelling 01/14/2023 10:33 AM EDT DIFFERENTIAL, AUTOMATED Lab STAT SOB (shortness of breath) Swelling 01/14/2023 10:33 AM EDT LITHIUM LEVEL Lab Routine Encounter for long-term (current) use of other medications 01/14/2023 10:42 AM EDT Health Maintenance Due Date Last Done Comments COVID-19 Vaccine (#1) 01/04/1946 CKD PHOS USE SMARTSET 78051 06/24/202206/07, 08/21/2018, 07/25/2018 Depression Screening, Annual for Pts 12 and Over 12/15/2022 12/15/2021 Influenza Vaccine (FLU shot) (#1) 2023 02/17/2018, 04/01/2017, 03/09/2016, Additional history exists GFR 04/16/2023 10/14/2022, 06/07, 04/27/2022, Additional history exists DTaP,Tdap,and Td Vaccines (2 - Td or Tdap) 06/22/2023 06/22/2013, 02/27/2008 Albumin/Creatinine Ratio 06/25/2023 023, 05/09/2021, 08/23/2018 TSH 10/15/2023 10/14/2022, 06/07, 02/03/2022, Additional history exists CKD HGB USE SMARTSET 77784 12/11/202312/10, 06/25/2022, 04/27/2022, Additional history exists Pneumococcal [...] as of this encounter Visit Diagnoses Diagnosis SOB (shortness of breath) Shortness of breath Swelling Edema Encounter for long-term (current) use of other medications documented in this encounter Additional Health Concerns Infection Onset Date Last Indicated Resolved Time COVID-19 (confirmed) 11/15/2021 11/15/2021 documented as of this encounter Care Teams Airplane Fueler Relationship Specialty Start Date End Date Grant Faye MD [address] [place] [address] PCP - General Family Medicine 02/09/17 documented as of this encounter
--- OUTSIDE RECORDS SUMMARY | 2023-04-28 07:45 | External Medical Summary ---
Author Name Unknown Address Unknown Organization [id number]:LABORATORY [facility] [place] - [address] [facility] [address] Laboratory Report Ordering Provider Test Date Status SYBIL RYAN 12/10/2022 14:38:11 Final Observation Date Value Abnormality Reference (Units ) Status Hemoglobin 12/10/2022 14:38:11 13.5 Below low normal 14 .0-16.8 (g/dL) Final Performing Location [facility] - [address] [facility] [address]
--- OUTSIDE RECORDS SUMMARY | 2023-04-28 07:45 | External Medical Summary ---
Author Name Unknown Address Unknown Organization [id number]:[facility]ORY [facility] [place] [address] [address] Laboratory Report Ordering Provider Test Date Status MIKIE ANTONY 03/18/2023 08:10:04 Final Observation Date Value Abnormality Reference (Units ) Status [place] [Moles/volume] in Blood 03/18/2023 08:10:04 0.5 Below low normal 0.6-1.2 (mmol/L) Final Performing Location LAB[facility] [place] [address] [place] [address]
--- OUTSIDE RECORDS SUMMARY | 2023-04-28 07:45 | External Medical Summary ---
Author Name Unknown Address Unknown Organization [id number]:LABORATORY [facility] [place] - [address] [facility] [address] Laboratory Report Ordering Provider Test Date Status GLENIS STALLWORTH 01/14/2023 10:33:37 Final Observation Date Value Abnormality Reference (Units ) Status SYNC LEUKOCYTES IN BLOOD BY AUTOMATED COUNT 01/14/2023 10:33:37 6.10 4.00-10.80 (K/uL) Final Segs 01/14/2023 10:33:37 40.1 40.0-75.0 (%) Final Lymphs % 01/14/2023 10:33:37 43.9 Above high normal 18.0-42.0 (%) Final Monos 01/14/2023 10:33:37 8.0 1.0-11.0 (%) Final Eosinophils 01/14/2023 10:33:37 6.7 Above high normal 0.0-6.0 (%) Final Basos 01/14/2023 10:33:37 1.0 0.0-2.0 (%) Final Immature Granulocyte, Percent 01/14/2023 10:33:37 0.3 0.0-2.0 (%) Final Absolute Segs 01/14/2023 10:33:37 2.44 1.80-7.70 (K/uL) Final Lymphs, absolute 01/14/2023 10:33:37 2.68 1.00-4.80 (K/ul) Final Monos, Abs 01/14/2023 10:33:37 0.49 0.00-1.10 (K/uL) Final Eos, Abs 01/14/2023 10:33:37 0.41 0.00-0.70 (K/uL) Final Basos, Abs 01/14/2023 10:33:37 0.06 0.00-0.20 (K/uL) Final Immature Granulocytes, Number 01/14/2023 10:33:37 0.02 0.00-0.20 (K/uL) Final Performing Location LABORATORY [facility] [place] - [address] [facility] [address]
--- OUTSIDE RECORDS SUMMARY | 2023-04-28 07:45 | External Medical Summary | Summary of Care ---
Author Name Unknown Organization [facility] Address [address] [place] [address] Phone [phone] Care Team Providers Care Hand Outside Cutter Name Role Phone Grant Faey MD Primary Care Provider [phone]- [phone] Reason for Visit * Reason Comments Rectal Bleeding Encounter Details Date Type Department Care Team Description 12/10/2022 Office Visit [facility] [address] [place] [address] Grant Faye MD [address] [place] [address] BRBPR (bright red blood per rectum)*; Internal hemorrhoids; Risk and functional assessment Allergies No known active allergiesdocumented as of this encounter (statuses as of 12/28/2022) Medications Medication Sig Dispensed Refills Start Date End Date Status VENLAFAXINE HCL ER 150 MG PO [id number]: Bipolar I disorder, most recent episode depressed [...] by mouth in the morning. 0 Active [place] Carbonate 300 MG Oral Capsule (Eskalith) Take [...] for 2 weeks. 28 Suppository 1 3 Active Aspirin 81 MG Oral Tablet Delayed Release Take 1 Tablet by mouth in the morning. 0 12/23/19 23 Discontinued documented as of this encounter (statuses as of 12/28/2022) Active Problems Problem Noted Date Severe obesity 06/25/2022 Hyperlipidemia 06/25/2022 Granulomatous lung disease 06/05/2022 Bilateral hearing loss 05/14/2021 Stage 3b chronic kidney disease 04/15/20 20 Overview: Per CKD protocol Acquired hypothyroidism 08/07/2019 Stasis dermatitis of both legs 7 Bipolar I disorder, most recent episode depressed 08/16/2012 documented as of this encounter (statuses as of 12/28/2022) Resolved Problems Problem Noted Date Resolved Date [...] as of this encounter (statuses as of 12/28/2022) Immunizations Name Administration Dates Next Due PPD [...] Sign Reading Time Taken Comments Blood Pressure - - Pulse 82 12/10/2022 2:04 PM EDT Temperature 37.1 C (98.8 F) 12/10/2022 2:04 PM ED T Respiratory Rate 16 12/10/2022 2:04 PM EDT Oxygen Saturation 98% 12/10/2022 2:04 PM EDT Inhaled Oxygen Concentration - - Weight 109.8 kg (242 lb) 12/10/2022 2:04 PM EDT Height - - Body Mass Index 36.8 06/25/2022 8:02 AM EST documented in this encounter Patient Instructions * Patient Instructions* Regina Caldwell LPN - 12/10/2022 2:08 PM EDT Patient Instructions - Fall Prevention (This education is for all patients over 65 regardless of symptoms) Remember to take your current medications as prescribed. In order to prevent falls, you are encouraged to: Exercise Utilize assistive/adaptive devices Avoid multifocal lenses when walking Avoid hazards in home Maintain a regular toileting schedule Any questions please contact our office. Preventing Falls in the Home (This education is for all patients over 65 regardless of symptoms) As you get older, falls are more likely. Thats because your reaction time slows. Your muscles and joints may also get stiffer, making them less flexible. Illness, medications, and vision changes can also affect your balance. A fall could leave you unable to live on your own. To make your home safer, follow these tips: Floors Put nonskid pads under area rugs Remove throw rugs Replace worn floor coverings Tack carpets firmly to each step on carpeted stairs. Put nonskid strips on the edges of uncarpeted stairs Keep floors and stairs free of clutter and cords Arrange furniture so there are clear pathways Clean up any spills right away Bathrooms Install grab bars in the tub or shower Apply nonskid strips or put a nonskid rubber mat in the tub or shower Sit on a bath chair to bathe Use bathmats with nonskid backing Lighting Keep a flashlight in each room Put a nightlight along the pathway between the bedroom and the bathroom Goodran Patient Education Copyright 2008 - 2010 Laci except where otherwise noted Preventing Falls: Exercises to Improve Balance, Flexibility, Strength, and Staying Power (This education is for all patients over 65 regardless of symptoms) Certain types of exercises may help make you less likely to fall. Try the ones below. Or do other exercises that your healthcare provider suggests. Depending on your health, you may need to start slowly. Dont let that stop you. Even small amounts of exercise can help you. Be sure to talk to yourhealthcare provider before starting any exercise program. Improve Balance Many types of exercise can help improve balance. Derek chi and yoga are good examples. Heres another one to try. You can do it anytime and almost anywhere. Stand next to a counter or solid support. Push yourself up onto your tiptoes. Hold for 5 seconds. If you start to lose your balance, hold on to the counter. Rest and repeat 5 times. Work up to holding for 20 to 30 seconds, if you can. Increase Flexibility Being more flexible makes it easier for you to move around safely. Try exercises like the seated hamstring stretch. Sit in a chair and put one foot on a stool. Straighten your leg and reach with both hands down either side of your leg. Reach as far down your leg as you can. Hold for about 20 seconds. Go back to the starting position. Then repeat 5 times. Switch legs. Build Strength Resistance exercises help build strength. You can do them without equipment. Or you can use weights, elastic bands, or special machines. One such exercise is called the biceps curl. You can hold a 1 pound weight or even a can of soup. Do this exercise at least 3 times a week. Strive for everyday. Sit up straight in a chair. Keep your elbow close to your body and your wrist straight. Bend your arm, moving your hand up to your shoulder. Then slowly lower your arm. Repeat 5 times. Switch to the other arm. Build Your Staying Power Aerobic exercises make your heart and lungs stronger so you can keep moving longer. Walking and swimming are two of the best types of exercises you can do. Using a stationary bike is great, too. Find an aerobic exercise that you enjoy. Start slowly and build up. Even 5 minutes is helpful. Aimfor a goal of 30 minutes, at least 3 times a week. You dont have to do 30 minutes in one session. Break it up and walk a little throughout the day. More Helpful Tips Start easy. Slowly work up to doing more. Talk with your healthcare provider about the best exercises for you. Call senior centers or health clubs about exercise programs. If needed, have a family member watch you walk every so often to check your stability. Exercise with a friend. Choose an activity you both enjoy. Try exercises that you can do anytime, anywhere. Here are two examples. Have someone with you when you first try these: Practice walking by placing one foot right in front of the other. Stand up and sit down 10 times. Repeat this throughout the day. OY [employer]X [employer]rapies Patient Education Copyright 2008 - 2010 [employer] except where otherwise noted. Preventing Falls: Moving Safely Using a Cane or Walker (This education is for all patients over 65 regardless of symptoms) Keep the cane away from your feet so you dont trip. A walking aid, such as a cane or walker, can help you stay more independent and avoid falls. Remember to keep your walking aid within easy reach when youre in a chair or in bed. And learn how to use it safely so you dont injure yourself. Using a Cane If you have a stronger side, hold the cane on that side. 17. Get your balance. 18. Move the cane and your weaker leg forward. 19. Support your weight on both the cane and your weaker side. 20. Step with your stronger leg. 21. Start again from step 1. If youre using a folding walker, be sure you know how to lock it open. Check that its locked open before each use. Using a Walker 7. Roll the walker (or lift it, if youre using one without wheels) forward about 12 inches. 8. Step forward with your weaker leg first. 9. Use the walker to help keep your balance. 10. Bring your other foot forward to the center of the walker. 11. Start again from step 1. Helpful Tips Check with your healthcare provider about the right walking aid to use. Ask about a walker with a seat attached. Check the tips of your cane or walker to make sure they have nonskid covers. Move slowly from room to room. Dont barnes. Sit down to get dressed. Use a nayeli pack or backpack to keep your hands free. Get help for jobs that mean climbing, even on a stepstool. Laci Patient Education Copyright 2008 - 2010 [employer] except where otherwise noted. Treating Urinary Incontinence in Men (This education is for all patients over 65 regardless of symptoms) You can't always control the release of urine. You may leak urine. Or you may not be able to hold your urine until you can get to a bathroom. This is called urinary incontinence. The problem can be managed. Talk to your doctor about your treatment options. Taking Medications Prescription medications may help you. They may: Help the sphincter to work better. (This is the muscle that closes to keep urine from leaking out of the bladder.) Help stop the bladder from delfina too often to push urine out. Help the bladder muscles contract with more force. Help relax the sphincter muscle and allow urine to flow more freely. Making Changes to Your Routine Certain changes in your daily routine may help. These include: Avoiding caffeine and alcohol. Using timed voiding. This is following a schedule for drinking fluids and urinating. Doing Kegel exercises daily. These exercises involve tightening the muscles in your sphincter and around your bladder to help strengthen them. Your doctor can explain how to do them. Using a Catheter A catheter is a narrow tube that is inserted through the urethra into the bladder. It drains urine.A condom catheter covers the penis. It channels urine into a collection bag. It is worn most of thetime. Intermittent catheterization means inserting a catheter to drain the bladder, then removing it. This is done on a regular schedule. Having Surgery If other options don't work, surgery may be recommended. If surgery is an option, your healthcare provider can discuss it with you and explain its risks and benefits. Healing After Prostate Surgery Surgery on the prostate gland can cause incontinence. Most often, the incontinence is only for a short time. It clears up when healing is complete. Very rarely, prostate surgery can result in permanent incontinence. documented in this encounter Progress Notes * Grant Faye MD - 12/28/2022 10:46 PM EDT Subjective: Betito Darnell is a 77 year old male here today for Chief Complaint Patient presents with Rectal Bleeding Pt presents for evaluation of rectal bleeding. He is utd with colonoscopy and has known history of int hem. He is not having any pain. Blood is bright red. No pain, nausea, vomiting. Denies chest pain, shortness of breath, cough, nausea, vomiting, abd pain, dysuria, urinary frequency, nocturia, fever, melena, hematochezia, peripheral edema. Past Medical History: Diagnosis Date Bipolar disorder (HCC) prior -DR Hutson Hypothyroid Pneumonia Past Surgical History: Procedure Laterality Date COLONOSCOPY, DIAGNOSTIC (RECTUM) 03/30/2014 normal, repeat 5 yrs/COLONOSCOPY FLEXIBLE PROXIMAL DIAGNOSTIC performed by Reta Andrews MD at ENDOSCOPY [facility] COLONOSCOPY, DIAGNOSTIC (RECTUM) 10/31/2021 benign adenomatous polyps, diverticulosis / COLONOSCOPY FLEXIBLE PROXIMAL DIAGNOSTIC performed by Aniceto Arrington MD at END[facility] COLORECTAL CANCER SCREEN; NOT AT RISK 09/04/2009 done normal exam repeat in 2 years for prep quality, needs 2 day prep DENTAL SURGERY PROCEDURE NEC no upper teeth EGD, FLEXIBLE, DIAGNOSTIC 10/31/2021 normal / ESOPHAGOGASTRODUODENOSCOPY (EGD), FLEXIBLE, TRANSORAL, DIAGNOSTIC performed by Aniceto Arrington MD at END[facility] REMOVAL OF APPENDIX 6 yo Review of patient's allergies indicates: No Known Allergies Current Outpatient Medications Medication Sig Dispense Refill Hydrocortisone Acetate 25 MG Rectal Suppository (Anusol-HC) Insert a suppository into the rectum twice per day for 2 weeks. 28 Suppository 1 VENLAFAXINE HCL ER 150 MG PO CP24 [...] 1 Tablet by mouth in the morning. [place] Carbonate 300 MG Oral Capsule (Eskalith) Take [...] BREAKFAST OR OTHER MEDICATIONS 100 Tablet 1 No current facility-administered medications for this visit. Objective: Pulse 82 | Temp 37.1 C (98.8 F) (Infrared ) | Resp 16 | Wt 109.8 kg (242 lb) | SpO2 98% | BMI 36.80 kg/m | BSA 2.3 m GEN: NAD HEENT: Benign NECK: Supple with no LAD, TM, JVD CHEST: CTA B CV: RRR ABD: Soft, NT/ND, No HSM, NABS EXT: No c,c,e Assessment and Plan: BRBPR (bright red blood per rectum) (Primary) - HGB; Future; Expected date: 12/10/2022 Internal hemorrhoids - Hydrocortisone Acetate 25 MG Rectal Suppository (Anusol-HC); Insert a suppository into the rectumtwice per day for 2 weeks. Risk and functional assessment Call for new or worsening symptkms 25 min with pt and documentation Grant Faye MD * Regina Caldwell LPN - 12/10/2022 2:08 PM EDT Urinary Incontinence Plan of Care Documentation: (This education is for all patients over 65 regardless of symptoms) Current medications reconciled. Patient encouraged to: Practice kegal exercises Provide education materials Use the restroom every 2 hours throughout the day Limit caffeine, alcohol, spicy foods and acidic foods Keep a bladder diary Limit fluid intake 3-4 hours before bed Lose weight Prevent constipation Take fluid pills at a time when you can get to the bathroom quickly Control sugar better if diabetic Limit fluid intake to 60 oz. per day Wear support stockings (TEDs)if you have edema Regina Caldwell LPN 12/10/2022 documented in this encounter Nursing Notes * Regina Caldwell LPN - 12/10/2022 2:04 PM EDT The patient has been properly identified by confirmation of name and date of . Chief Complaint Patient presents with Rectal Bleeding Rectal bleeding for the last two weeks-says no history of hemorrhoids. Blood is bright red. Denies any abdominal pain. documented in this encounter Plan of Treatment Upcoming Encounters Date Type Specialty Care Team Description 06/28/2023 Office Visit Family Medicine Grant Faye MD [address] [place] [address] Health Maintenance Due Date Last Done Comments COVID-19 Vaccine (#1) 01/04/1946 CKD PHOS USE SMARTSET 10777 06/24/202206/07, 08/21/2018, 07/25/2018 Depression Screening, Annual for Pts 12 and Over 12/15/2022 12/15/2021 Influenza Vaccine (FLU shot) (#1) 2023 02/17/2018, 04/01/2017, 03/09/2016, Additional history exists GFR 04/16/2023 10/14/2022, 06/07, 04/27/2022, Additional history exists DTaP,Tdap,and Td Vaccines (2 - Td or Tdap) 06/22/2023 06/22/2013, 02/27/2008 Albumin/Creatinine Ratio 06/25/2023 023, 05/09/2021, 08/23/2018 TSH 10/15/2023 10/14/2022, 06/07, 02/03/2022, Additional history exists CKD HGB USE SMARTSET 40411 12/11/202312/10, 06/25/2022, 04/27/2022, Additional history exists Pneumococcal [...] Not on filedocumented as of this encounter Results * (ABNORMAL) HGB (12/10/2022 2:38 PM EDT) HGB 13.5(L) 14.0 - 16.8 g/dL 12/11/2022 12:29 AM EDT [facility] Blood Venous blood specimen / Unknown Venipuncture / Unknown 12/10/2022 2:38 PM EDT 12/10/2022 2:38 PM EDT Grant Faye MD LAB BLOOD ORDERABL ES Performing Organization Address City/State/[facility] Co de Phone Number LABORATORY [facility] [address] [place] [address] documented in this encounter Visit Diagnoses Diagnosis BRBPR (bright red blood per rectum)- Primary Hemorrhage of rectum and anus Internal hemorrhoids Internal hemorrhoids without mention of complication Risk and functional assessment Screening for unspecified condition documented in this encounter Additional Health Concerns Infection Onset Date Last Indicated Resolved Time COVID-19 (confirmed) 11/15/2021 11/15/2021 documented as of this encounter Care Teams Hand Outside Cutter Relationship Specialty Start Date End Date Grant Faye MD [address] [place] [address] PCP - General Family Medicine 02/09/17 documented as of this encounter"
--- OUTSIDE RECORDS SUMMARY | 2023-04-28 07:45 | External Medical Summary | Summary of Care ---
Author Name Unknown Organization [facility] Address [address] [place] [address] Phone [phone] Care Team Providers Care Garment Form Assembler Name Role Phone Grant Faye MD Primary Care Provider [phone]- [phone] Reason for Visit * Reason Comments Outpatient Testing Encounter Details Date Type Department Care Team Description 03/18/2023 Laboratory Laboratory, [place] [address] [place] [address] [place], [facility] [address] [place] [address] Encounter for long-term (current) use of other medications Allergies No known active allergiesdocumented as of this encounter (statuses as of 03/18/2023) Medications Medication Sig Dispensed Refills Start Date End Date Status VENLAFAXINE HCL ER 150 MG PO [id number]:B ipolar I disorder, most recent episode depressed [...] by mouth in the morning. 0 Active [place] Carbonate 300 MG Oral Capsule (Eskalith) Take [...] as of this encounter (statuses as of 03/18/2023) Active Problems Problem Noted Date Severe obesity 06/25/2022 Hyperlipidemia 06/25/2022 Granulomatous lung disease 06/05/2022 Bilateral hearing loss 05/14/2021 Stage 3b chronic kidney disease 04/15/20 20 Overview: Per CKD protocol Acquired hypothyroidism 08/07/2019 Stasis dermatitis of both legs 7 Bipolar I disorder, most recent episode depressed 08/16/2012 documented as of this encounter (statuses as of 03/18/2023) Resolved Problems Problem Noted Date Resolved Date [...] as of this encounter (statuses as of 03/18/2023) Immunizations Name Administration Dates Next Due PPD [...] Family Medicine Grant Faye MD [address] [place] [address] Pending Results Name Type Priority Associated Diagnoses Date /Time LITHIUM LEVEL Lab Routine Encounter for long-term (current) use of other medications 03/18/2023 8:10 AM EDT BASIC METABOLIC PANEL Lab Routine Encounter for long-term (current) use of other medications 03/18/2023 8:10 AM EDT TSH Lab Routine Encounter for long-term (current) use of other medications 03/18/2023 8:10 AM EDT T4, FREE Lab Routine Encounter for long-term (current) use of other medications 03/18/2023 8:10 AM EDT Health Maintenance Due Date Last Done Comments COVID-19 Vaccine (#1) 01/04/1946 CKD PHOS USE SMARTSET 52702 06/24/202206/07, 08/21/2018, 07/25/2018 Depression Screening 12/15/2022 12/15/2021 Influenza Vaccine (FLU shot) (#1) 2023 02/17/2018, 04/01/2017, 03/09/2016, Additional history exists GFR 04/16/2023 10/14/2022, 06/07, 04/27/2022, Additional history exists DTaP,Tdap,and Td Vaccines (2 - Td or Tdap) 06/22/2023 06/22/2013, 02/27/2008 Albumin/Creatinine Ratio 06/25/2023 023, 05/09/2021, 08/23/2018 TSH 10/15/2023 10/14/2022, 06/07, 02/03/2022, Additional history exists CKD HGB USE SMARTSET 70490 01/15/202401/14, 01/14/2023, 12/10/2022, Additional history exists Pneumococcal [...] as of this encounter Visit Diagnoses Diagnosis Encounter for long-term (current) use of other medications documented in this encounter Additional Health Concerns Infection Onset Date Last Indicated Resolved Time COVID-19 (confirmed) 11/15/2021 11/15/2021 documented as of this encounter Care Teams Garment Form Assembler Relationship Specialty Start Date End Date Grant Faye MD [address], [place] [id number] PCP - General Family Medicine 02/09/17 documented as of this encounter
--- OUTSIDE RECORDS SUMMARY | 2023-04-28 07:45 | External Medical Summary | Summary of Care ---
Author Name Unknown Organization [facility] Address [address] [place] [address] Phone [phone] Care Team Providers Care Early Education Teacher Name Role Phone Grant Faye MD Primary Care Provider [phone]- [phone] Reason for Visit * Reason Comments Outpatient Testing Encounter Details Date Type Department Care Team Description 01/14/2023 Laboratory Laboratory, [place] [address] [place] [address] [place] [address] [place] [address] SOB (shortness of breath); Swelling; Encounter for long-term (current) use of other medications Allergies No known active allergiesdocumented as of this encounter (statuses as of 01/14/2023) Medications Medication Sig Dispensed Refills Start Date End Date Status VENLAFAXINE HCL ER 150 MG PO [id number]:B ipolar I disorder, most recent episode depressed [...] by mouth in the morning. 0 Active [place] Carbonate 300 MG Oral Capsule (Eskalith) Take [...] Family Medicine Grant Faye MD [address] [place] [address] Pending Results Name Type Priority Associated Diagnoses [...] Vaccine (#1) 01/04/1946 CKD PHOS USE SMARTSET 99010 06/24/202206/07, 08/21/2018, 07/25/2018 Depression Screening, Annual for Pts 12 and Over 12/15/2022 12/15/2021 Influenza Vaccine (FLU shot) (#1) 2023 02/17/2018, 04/01/2017, 03/09/2016, Additional history exists GFR 04/16/2023 10/14/2022, 06/07, 04/27/2022, Additional history exists DTaP,Tdap,and Td Vaccines (2 - Td or Tdap) 06/22/2023 06/22/2013, 02/27/2008 Albumin/Creatinine Ratio 06/25/2023 023, 05/09/2021, 08/23/2018 TSH 10/15/2023 10/14/2022, 06/07, 02/03/2022, Additional history exists CKD HGB USE SMARTSET 45921 12/11/202312/10, 06/25/2022, 04/27/2022, Additional history exists Pneumococcal [...] documented as of this encounter Care Teams Early Education Teacher Relationship Specialty Start Date End Date Grant Faye MD [address] [place] [address] PCP - General Family Medicine 02/09/17 documented as of this encounter
--- OUTSIDE RECORDS SUMMARY | 2023-04-28 07:45 | External Medical Summary ---
Author Name Unknown Address Unknown Organization K01:[facility] [place] - [address] [facility] [address] Laboratory Report Ordering Provider Test Date Status MIKIE ANTONY 03/18/2023 08:10:04 Final Observation Date Value Abnormality Reference (Units ) Status BUN 03/18/2023 08:10:04 16 6-20 (mg/dL) Final Creatinine 03/18/2023 08:10:04 1.6 Above high normal 0.6-1.2 (mg/dL) Final Glomerular filtration rate/1.73 sq M.predicted [Volume Rate/Area] in Serum, Plasma or Blood by Creatinine-based formula (CKD-EPI) 03/18/2023 08:10:04 43 Below low normal >=60 (mL/min) Final eGFR is calculated based on the CKD-EPI 2020 equation SODIUM 03/18/2023 08:10:04 141 135-146 (m mol/L) Final Potassium 03/18/2023 08:10:04 4.3 3.5-5.1 (m mol/L) Final Cl 03/18/2023 08:10:04 107 98-107 (mm ol/L) Final CO2 03/18/2023 08:10:04 25 22-32 (mmo l/L) Final Anion gap 03/18/2023 08:10:04 9 7-15 (mmol /L) Final Glucose 03/18/2023 08:10:04 95 70-120 (mg /dL) Final Calcium 03/18/2023 08:10:04 8.9 8.4-10.2 ( mg/dL) Final Performing Location [facility] [place] - [address] [facility] [address]
--- NOTE | 2023-04-28 07:56 | Emergency Department Note ---
Impression & Plan Generalized weakness, Influenza A H1N1 infection ED Provider Note NAME: ROLAND ROJAS AGE: 77 SEX: M : 1945 ARRIVES VIA: Ambulance INFORMANT: Patient, EMS personnel ED PROVIDER(S): Ck Cohen DO CHIEF COMPLAINT: Cough HPI: The patient is a 77-year-old male who presented to the emergency department for an evaluation of cough. The patient was having abdominal pain and back pain that he described as worsening with coughing. He started having cough multiple days ago. The patient was noted to have a fever. The patient states he has been coughing and with his cough he notices upper abdominal pain and upper back pain. The patient denies having any headache at this time. He denies having any hemoptysis. He has no sick contacts as far as he knows. The patient was unaware that he had a fever until he presented to the emergency department. The fever is actually found by the prehospital personnel. ROS: See above HPI for pertinent positives & negatives. A total of 10 systems reviewed and were otherwise negative. PAST MEDICAL HISTORY: See Below PAST SURGICAL HISTORY: See Below FAMILY HISTORY: See Below SOCIAL HISTORY: See Below HOME MEDICATIONS: See Below ALLERGIES: See Below VITALS: See Below PHYSICAL EXAMINATION: GENERAL: Patient is awake alert in no acute distress patient is resting comfortably and showing no signs of anxiety EYES: The conjunctivae are clear. The pupils are round and reactive. EARS, NOSE, MOUTH AND THROAT: The nose is without any evidence of any deformity. NECK: The neck is nontender and supple. RESPIRATORY: Diminished breath sounds are noted in the right lung field. There were scattered rhonchi. There is no tachypnea or conversational dyspnea CARDIOVASCULAR: Regular rate and rhythm noted there no murmurs rubs or gallops normal S1 normal S2. GASTROINTESTINAL: The abdomen is soft. Abdomen is nontender. MUSCULOSKELETAL/EXTREMITIES: There is no evidence of gross deformity full range of motion is noted in the hips and shoulders. SKIN: There is no obvious evidence of any rash. There are no petechiae, pallor or cyanosis noted. NEUROLOGIC: Patient is awake alert and oriented x3 MEDICAL DECISION MAKING: The patient is a 77-year-old male who presented to the emergency department with multiple complaints. The patient was experiencing generalized weakness as well as cough. He is also had abdominal pain or back pain. The abdominal pain and back pain appear to be musculoskeletal in nature likely due to the patient's coughing. The patient had no focal neurologic deficits but trying to ambulate the patient was very weak. I discussed patient's laboratory and radiographic studies with him. He was reevaluated multiple times. Ultimately the patient was found to have a positive flu swab which I do feel is causing patient's presentation. Because of his findings and because of his comorbidities and inability to ambulate [facility] Triage Nursing notes reviewed. Prior medical records reviewed Vital Signs: reviewed and remarkable for tachypnea. Differential diagnosis: Viral syndrome, otitis, pharyngitis, pneumonia, influenza, meningitis, urinary tract infection, sepsis, bacteremia, as well as other pathologies. ER treatment provided: See below Diagnostics interpreted by me: ECG: EKG was obtained in the emergency department. My interpretation is normal sinus rhythm at 94 bpm. There is no ectopy. High lateral T wave abnormalities were noted. This was compared to a tracing from September 25, 2022. No changes were noted. Cardiac Monitoring: An order was placed for continuous cardiac monitoring. The monitor shows a rate of 75 bpm with sinus rhythm. Laboratory studies: As stated above and show below. Imaging studies: See below. Radiographic imaging was reviewed by myself Consultation(s): I discussed this case with Sania who [facility]. 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 Beliefs That Will Affect Care: None marital status: Current Living Situation: Spouse current occupational status: retired Feels Safe at Home: Yes Assistive Devices: Denture - Upper, Denture - Lower and Glasses Allergies Allergies Allergy/AdvReac Type Severity Reaction Status Date / Time No Known Allergies Allergy Unverified 09/25/22 12:14 Home Meds Home Medications Medication Instructions Recorded Confirmed aripiprazole 15 mg tablet 7.5 mg PO HS 04/28/23 04/28/23 aspirin 81 mg tablet,delayed 81 mg PO HS 04/28/23 04/28/23 release atorvastatin 40 mg tablet 40 mg PO HS 04/28/23 04/28/23 baclofen 10 mg tablet 10 mg PO BID PRN Muscle Spasm 04/28/23 04/28/23 gabapentin 300 mg capsule 300 mg PO HS 04/28/23 04/28/23 levothyroxine 137 mcg tablet 137 mcg PO HS 04/28/23 04/28/23 lithium carbonate 450 mg 450 mg PO HS 04/28/23 04/28/23 tablet,extended release trazodone 150 mg tablet 150 mg PO HS 04/28/23 04/28/23 venlafaxine 150 mg 300 mg PO HS 04/28/23 04/28/23 capsule,extended release 24 hr (Effexor XR) Results & Data (ED) Vital Signs Vital Signs - 24 hr 04/28/23 07:41 04/28/23 07:41 04/28/23 07:45 Temperature 37.3 C Temperature Source Oral Pulse Rate 105 H 94 H Pulse Rate [Apical] Pulse Rate from SpO2 Sensor 96 H Respiratory Rate 20 20 Blood Pressure 127/74 127/74 Blood Pressure [Right Arm] Blood Pressure Mean 91 91 Blood Pressure Mean [Right Arm] Pulse Oximetry 94 93 Oxygen Delivery Method Room Air Sepsis Recent Fever Within 48 Hours Yes Sepsis New/Unexplained Change in Mental Status N/A Sepsis Action Taken by Nursing No Action Required 04/28/23 07:50 04/28/23 07:55 04/28/23 08:00 Temperature Temperature Source Pulse Rate 91 H 96 H Pulse Rate [Apical] Pulse Rate from SpO2 Sensor 91 H 97 H Respiratory Rate 33 H 30 H Blood Pressure Blood Pressure [Right Arm] Blood Pressure Mean Blood Pressure Mean [Right Arm] Pulse Oximetry 94 93 95 Oxygen Delivery Method Room Air Sepsis Recent Fever Within 48 Hours Sepsis New/Unexplained Change in Mental Status Sepsis Action Taken by Nursing 04/28/23 08:02 04/28/23 08:02 04/28/23 08:10 Temperature Temperature Source Pulse Rate 93 H 95 H Pulse Rate [Apical] Pulse Rate from SpO2 Sensor 94 H 95 H Respiratory Rate 18 19 Blood Pressure 125/79 Blood Pressure [Right Arm] Blood Pressure Mean 103 Blood Pressure Mean [Right Arm] Pulse Oximetry 94 95 Oxygen Delivery Method Sepsis Recent Fever Within 48 Hours Sepsis New/Unexplained Change in Mental Status Sepsis Action Taken by Nursing 04/28/23 08:20 04/28/23 08:30 04/28/23 08:33 Temperature Temperature Source Pulse Rate 90 91 H 94 H Pulse Rate [Apical] Pulse Rate from SpO2 Sensor 90 91 H Respiratory Rate 27 H 29 H Blood Pressure Blood Pressure [Right Arm] Blood Pressure Mean Blood Pressure Mean [Right Arm] Pulse Oximetry 94 93 Oxygen Delivery Method Sepsis Recent Fever Within 48 Hours Sepsis New/Unexplained Change in Mental Status Sepsis Action Taken by Nursing 04/28/23 08:40 04/28/23 08:50 04/28/23 09:00 Temperature Temperature Source Pulse Rate 92 H 88 86 Pulse Rate [Apical] Pulse Rate from SpO2 Sensor 91 H 88 87 Respiratory Rate 23 28 H 22 Blood Pressure Blood Pressure [Right Arm] Blood Pressure Mean Blood Pressure Mean [Right Arm] Pulse Oximetry 96 93 94 Oxygen Delivery Method Sepsis Recent Fever Within 48 Hours Sepsis New/Unexplained Change in Mental Status Sepsis Action Taken by Nursing 04/28/23 09:01 04/28/23 09:02 04/28/23 09:02 Temperature Temperature Source Pulse Rate 87 Pulse Rate [Apical] 87 Pulse Rate from SpO2 Sensor 87 Respiratory Rate 21 27 H Blood Pressure 116/70 Blood Pressure [Right Arm] 116/70 Blood Pressure Mean 92 Blood Pressure Mean [Right Arm] 85 Pulse Oximetry 95 93 Oxygen Delivery Method Room Air Sepsis Recent Fever Within 48 Hours Sepsis New/Unexplained Change in Mental Status Sepsis Action Taken by Nursing 04/28/23 09:10 04/28/23 09:20 04/28/23 09:30 Temperature Temperature Source Pulse Rate 86 88 86 Pulse Rate [Apical] Pulse Rate from SpO2 Sensor 87 87 87 Respiratory Rate 29 H 14 19 Blood Pressure Blood Pressure [Right Arm] Blood Pressure Mean Blood Pressure Mean [Right Arm] Pulse Oximetry 94 99 93 Oxygen Delivery Method Sepsis Recent Fever Within 48 Hours Sepsis New/Unexplained Change in Mental Status Sepsis Action Taken by Nursing 04/28/23 09:31 04/28/23 09:31 04/28/23 09:40 Temperature Temperature Source Pulse Rate 91 H 84 Pulse Rate [Apical] Pulse Rate from SpO2 Sensor 91 H 84 Respiratory Rate 20 28 H Blood Pressure 124/77 Blood Pressure [Right Arm] Blood Pressure Mean 95 Blood Pressure Mean [Right Arm] Pulse Oximetry 93 95 Oxygen Delivery Method Sepsis Recent Fever Within 48 Hours Sepsis New/Unexplained Change in Mental Status Sepsis Action Taken by Nursing 04/28/23 09:50 04/28/23 10:00 04/28/23 10:00 Temperature Temperature Source Pulse Rate 84 86 Pulse Rate [Apical] Pulse Rate from SpO2 Sensor 84 85 Respiratory Rate 27 H 21 Blood Pressure 121/74 Blood Pressure [Right Arm] Blood Pressure Mean 96 Blood Pressure Mean [Right Arm] Pulse Oximetry 93 95 Oxygen Delivery Method Sepsis Recent Fever Within 48 Hours Sepsis New/Unexplained Change in Mental Status Sepsis Action Taken by Nursing 04/28/23 10:00 04/28/23 10:10 04/28/23 10:20 Temperature Temperature Source Pulse Rate 89 82 Pulse Rate [Apical] Pulse Rate from SpO2 Sensor 88 82 Respiratory Rate 18 26 H Blood Pressure 121/74 Blood Pressure [Right Arm] Blood Pressure Mean 96 Blood Pressure Mean [Right Arm] Pulse Oximetry 96 94 Oxygen Delivery Method Sepsis Recent Fever Within 48 Hours Sepsis New/Unexplained Change in Mental Status Sepsis Action Taken by Nursing 04/28/23 10:32 04/28/23 10:33 04/28/23 10:33 Temperature Temperature Source Pulse Rate 91 H Pulse Rate [Apical] Pulse Rate from SpO2 Sensor 85 91 H Respiratory Rate 18 Blood Pressure 133/74 Blood Pressure [Right Arm] Blood Pressure Mean 105 Blood Pressure Mean [Right Arm] Pulse Oximetry 95 95 Oxygen Delivery Method Sepsis Recent Fever Within 48 Hours Sepsis New/Unexplained Change in Mental Status Sepsis Action Taken by Nursing 04/28/23 10:40 04/28/23 10:50 04/28/23 11:00 Temperature Temperature Source Pulse Rate 81 87 Pulse Rate [Apical] Pulse Rate from SpO2 Sensor 82 87 Respiratory Rate 31 H 23 Blood Pressure 128/77 Blood Pressure [Right Arm] Blood Pressure Mean 97 Blood Pressure Mean [Right Arm] Pulse Oximetry 95 93 Oxygen Delivery Method Sepsis Recent Fever Within 48 Hours Sepsis New/Unexplained Change in Mental Status Sepsis Action Taken by Nursing 04/28/23 11:00 04/28/23 11:10 04/28/23 11:20 Temperature Temperature Source Pulse Rate 87 84 85 Pulse Rate [Apical] Pulse Rate from SpO2 Sensor 87 84 88 Respiratory Rate 14 22 25 H Blood Pressure Blood Pressure [Right Arm] Blood Pressure Mean Blood Pressure Mean [Right Arm] Pulse Oximetry 96 95 94 Oxygen Delivery Method Sepsis Recent Fever Within 48 Hours Sepsis New/Unexplained Change in Mental Status Sepsis Action Taken by Nursing 04/28/23 11:30 04/28/23 11:30 04/28/23 12:13 Temperature Temperature Source Pulse Rate 87 75 Pulse Rate [Apical] Pulse Rate from SpO2 Sensor 86 Respiratory Rate 26 H Blood Pressure 130/84 Blood Pressure [Right Arm] Blood Pressure Mean 112 Blood Pressure Mean [Right Arm] Pulse Oximetry 97 Oxygen Delivery Method Room Air Sepsis Recent Fever Within 48 Hours Sepsis New/Unexplained Change in Mental Status Sepsis Action Taken by [facility] Medications Current Medication List: was personally reviewed by me Laboratory Data Attestation: I reviewed the patient's lab results. 04/28/23 07:47 04/28/23 07:47 Lab Results 04/28/23 04/28/23 04/28/23 Range/Units 07:47 08:09 08:11 WBC 7.74 (4.8-10.8) K/ul RBC 3.98 L (4.70-6.10) M/uL Hgb 13.1 L (14.0-18.0) g/dl Hct 39.4 L (42.0-52.0) % MCV 99.0 (80.0-100.0) fL MCH 32.9 (25.0-34.0) pg MCHC 33.2 (32.0-36.0) g/dL RDW Std Deviation 53.5 H (36.4-46.3) fL RDW Coeff of [place] 14.6 H (11.5-14.5) % Plt Count 150 (130-400) K/uL MPV 11.0 (9.4-12.4) fL Immature Gran % (Auto) 0.4 % Neut % (Auto) 68.7 % Lymph % (Auto) 15.4 % [place] % (Auto) 10.1 % Eos % (Auto) 4.8 % Baso % (Auto) 0.6 % Neut # (Auto) 5.32 (1.40-6.50) K/uL Lymph # (Auto) 1.19 L (1.20-3.40) K/uL [place] # (Auto) 0.78 H (0.11-0.59) K/uL Eos # (Auto) 0.37 (0.00-0.50) K/uL Baso # (Auto) 0.05 (0.00-0.20) K/uL Immature Gran # (Auto) 0.03 (0.01-0.20) K/uL PT 12.6 H (9.0-12.0) Seconds INR 1.2 H (0.9-1.1) APTT 26.6 (21.0-31.0) Seconds PTT Ratio 0.9 Sodium 136 (136-145) mmol/L Potassium 4.5 (3.5-5.1) mmol/L Chloride 106 (98-107) mmol/L Carbon Dioxide 26 (21-32) mmol/L Anion Gap 4 (3-11) BUN 18 (6-23) mg/dl Creatinine 1.54 H (0.6-1.4) mg/dl Est Cr Clr Drug Dosing 46.8 ml/min Est GFR ( Amer) 49.0 ml/min Est GFR (Non-Af Amer) 42.3 ml/min BUN/Creatinine Ratio 11.7 (10-20) Glucose 88 (70-99(Fasting)) mg/dl Lactate 1.4 (0.4-2.0) mmol/L Calcium 9.2 (8.6-10.3) mg/dl Magnesium 1.9 (1.7-2.4) mg/dl Total Bilirubin 0.3 (0.2-1.0) mg/dl Direct Bilirubin 0.1 (0-0.2) mg/dl AST 25 (13-39) U/L ALT 23 (7-52) U/L Alkaline Phosphatase 55 (34-104) U/L Troponin I High Sens 5.6 (0-20) pg/ml Total Protein 6.8 (6.0-8.3) gm/dl Albumin 4.1 (3.4-5.0) gm/dl Procalcitonin < 0.05 (0-0.5) ng/ml TSH 7.495 H (0.300-4.500) uIu/ml Free T4 1.02 (0.61-1.60) ng/dl Nasal Influ A H1 2008 PCR DETECTED A* (NotDetected) [place] 0.7 (0.6-1.2) mmol/L Adenovirus (PCR) Not Detected (NotDetected) B. pertussis DNA (PCR) Not Detected (NotDetected) B.parapertussis DNA PCR Not Detected (NotDetected) C. pneumoniae DNA (PCR) Not Detected (NotDetected) Coronavirus OC43 (PCR) Not Detected (NotDetected) Coronavirus HKU1 (PCR) Not Detected (NotDetected) Coronavirus 229E (PCR) Not Detected (NotDetected) SARS-CoV-2 (PCR) Not Detected (NotDetected) Coronavirus NL63 (PCR) Not Detected (NotDetected) Human Metapneumovir PCR Not Detected (NotDetected) Influenza Type B (PCR) Not Detected (NotDetected) M. pneumoniae (PCR) Not Detected (NotDetected) Parainfluenza 1 (PCR) Not Detected (NotDetected) Parainfluenza 2 (PCR) Not Detected (NotDetected) Parainfluenza 3 (PCR) Not Detected (NotDetected) Parainfluenza 4 (PCR) Not Detected (NotDetected) RSV (PCR) Not Detected (NotDetected) Entero/Rhino (PCR) Not Detected (NotDetected) Administered Medications Discontinued Medications Sodium Chloride (Nss) 500 mls @ 999 mls/hr IV .Q31M ONE Stop: 04/28/23 11:05 Last Infusion: 04/28/23 12:25 Dose: Infused Documented By: Admin: 04/28/23 11:20 Dose: 999 mls/hr Documented By: DERRICK Oseltamivir Phosphate (Oseltamivir Phosphate 75 Mg Cap) 75 mg PO NOW STA; Protocol Stop: 04/28/23 10:34 Last Admin: 04/28/23 11:19 Dose: 75 mg Documented By: DERRICK Imaging Data Attestation: I personally reviewed and interpreted this imaging study as follows: My Impression: 1 view chest x-ray was obtained in the emergency department. My interpretation no free air or definite infiltrate, final report below. Radiologist's Impression: Chest X-Ray 04/28/23 07:45 XR chest 1V portable CLINICAL HISTORY: Sepsis TECHNIQUE: Single frontal radiograph of the chest was obtained. Comparison: Comparison is made to rib series 11/14/2022 FINDINGS: No lines and tubes are seen. The cardiomediastinal silhouette is normal. The lungs are clear. No evidence of pleural effusion or pneumothorax. IMPRESSION: No acute abnormalities and in particular no radiographic evidence of pneumonia. ACT 112: Negative or not required by law. Electronically signed by: Gurmeet Patel M.D. 04/28/2023 8:[address] 04/28/23 10:[address] DOSE: 547.75 mGy.cm HISTORY: weakness TECHNIQUE: Multiaxial CT images of the head were performed without the use of intravenous contrast. Automated exposure control was utilized for this study. A dose lowering technique was utilized adhering to the principles of ALARA. Comparison: Head CT 09/25/2022. Findings: The paranasal sinuses and mastoid air cells are clear. The calvarium and skull base are intact. There is no mass, hematoma, midline shift, acute infarct. White matter hypodensity is nonspecific but suggestive of microvascular ischemic change. The ventricles and sulci demonstrate mild age-related involutional changes. Impression: No significant change compared to the prior study. No acute intracranial abnormality. ACT 112: Negative or not required by law. Electronically signed by: Delon Vela M.D. 04/28/2023 12:08 PM Discharge Plan Visit Data Chief Complaint: Abdominal Pain ED Provider: Ck Cohen Discharge Problem: Generalized weakness, Influenza A H1N1 infection Patient Disposition: Being Evaluated by Hospitalist
[2023-04-28 08:02] LABS: Basophils # (auto) 0.05 K/uL (0.00-0.20); Basophils % (auto) 0.6 %; Eosinophils # (auto) 0.37 K/uL (0.00-0.50); Eosinophils % (auto) 4.8 %; Hematocrit (blood only) 39.4 % (42.0-52.0); Hemoglobin 13.1 g/dl (14.0-18.0); Immature Granulocytes # (auto) 0.03 K/uL (0.01-0.20); Immature Granulocytes % (auto) 0.4 %; Lymphocytes # (auto) 1.19 K/uL (1.20-3.40); Lymphocytes % (auto) 15.4 %; Mean Corpuscular Hemoglobin 32.9 pg (25.0-34.0); Mean Corpuscular Hgb Conc 33.2 g/dL (32.0-36.0); Monocytes # (auto) 0.78 K/uL (0.11-0.59); Monocytes % (auto) 10.1 %; Neutrophils # (auto) 5.32 K/uL (1.40-6.50); Neutrophils % (auto) 68.7 %; Platelet Count 150 K/uL (130-400); RDW Coefficient of Variation 14.6 % (11.5-14.5); RDW Standard Deviation 53.5 fL (36.4-46.3); Red Blood Count 3.98 M/uL (4.70-6.10); White Blood Count 7.74 K/ul (4.8-10.8)
--- NOTE | 2023-04-28 08:37 | XRay Report ---
XR chest 1V portable CLINICAL HISTORY: Sepsis TECHNIQUE: Single frontal radiograph of the chest was obtained. Comparison: Comparison is made to rib series 11/14/2022 FINDINGS: No lines and tubes are seen. The cardiomediastinal silhouette is normal. The lungs are clear. No evid ence of pleural effusion or pneumothorax. IMPRESSION: No acute abnormalities and in particular no radiographic evidence of pneumonia. ACT 112: Negative or not required by law. Electronically signed by: Gurmeet Patel M.D. 04/28/2023 8:36 AM
[2023-04-28 08:46] LABS: Albumin Level 4.1 gm/dl (3.4-5.0); BUN Creatinine Ratio 11.7 (10-20); Bilirubin Direct 0.1 mg/dl (0-0.2); Bilirubin,Total 0.3 mg/dl (0.2-1.0); Calcium 9.2 mg/dl (8.6-10.3); Creatinine Clr Calc Pharmacy 46.8 ml/min; Est GFR (Non-African American) 42.3 ml/min; Magnesium 1.9 mg/dl (1.7-2.4); Potassium 4.5 mmol/L (3.5-5.1); Total Protein 6.8 gm/dl (6.0-8.3); Troponin I High Sensitivity 5.6 pg/ml (0-20)
[2023-04-28 08:49] LABS: INR 1.2 (0.9-1.1); Partial Thromboplastin Ratio 0.9; Partial Thromboplastin Time 26.6 Seconds (21.0-31.0); Prothrombin Time 12.6 Seconds (9.0-12.0)
[2023-04-28 09:39] LABS: Adenovirus PCR Not Detected (NotDetected); Bordetella parapertussis PCR Not Detected (NotDetected); Bordetella pertussis PCR Not Detected (NotDetected); Chlamydia pneumoniae PCR Not Detected (NotDetected); Coronavirus 229E PCR Not Detected (NotDetected); Coronavirus CoV-2 (COVID19)PCR Not Detected (NotDetected); Coronavirus HKU1 PCR Not Detected (NotDetected); Coronavirus NL63 PCR Not Detected (NotDetected); Coronavirus OC43PCR Not Detected (NotDetected); Human Metapneumovirus PCR Not Detected (NotDetected); Influenza B PCR Not Detected (NotDetected); Mycoplasma pneumoniae PCR Not Detected (NotDetected); Parainfluenza Virus 1 PCR Not Detected (NotDetected); Parainfluenza Virus 2 PCR Not Detected (NotDetected); Parainfluenza Virus 3 PCR Not Detected (NotDetected); Parainfluenza Virus 4 PCR Not Detected (NotDetected); Respiratory Syncytial VirusPCR Not Detected (NotDetected); Rhinovirus/Enterovirus PCR Not Detected (NotDetected)
[2023-04-28 09:49] LABS: Influenza A (H1 2009) PCR DETECTED (NotDetected)
[2023-04-28] MEDS ORDERED: OSELTAMIVIR PHOSPHATE 75 MG CAP PO STA (10:33)
[2023-04-28] MEDS ORDERED: SODIUM CHLORIDE 0.9% 500 ML IV ONE (10:35)
--- NOTE | 2023-04-28 10:49 | History & Physical Report ---
Date of Service April 28, 2023 Assessment & Plan (1) Morbid obesity: (2) Bipolar disorder: (3) Hypothyroidism: (4) Depression: (5) Stroke-like symptoms: (6) CKD (chronic kidney disease), stage III: Plan Physical Exam: Vitals signs as noted above General Appearance:Obese, no apparent distress, Elderly Head: normocephalic, Atraumatic Eyes: normal inspection, EOMI Neck: supple, Trachea midline Respiratory/Chest: Normal breath sounds, scattered wheezes, No accessory muscle use Cardiovascular: S1, S2, No murmur Abdomen/GI:Soft, Non tender, Bowel sounds present Extremities/Musculoskeletal:normal inspection, 1+ B/L Pedal edema Neurologic/Psych:AAOX3, grossly no focal neurological deficits Skin: normal color, warm Acute bronchitis Influenza A infection H/O granulomatous lung disease Bio fire negative Normal procalcitonin --CXR:No acute abnormalities and in particular no radiographic evidence of pneumonia. Started on Tamiflu, nebs as needed Antitussives as needed Generalized weakness Ambulatory dysfunction Likely secondary to above Mildly elevated TSH, normal free T4 Fall precautions PT OT as able Blurred vision Dizziness Grossly no focal deficits on exam CT Head:No significant change compared to the prior study. No acute intracranial abnormality. Normal [place] levels Obtain MRI brain Further management based on MRI results Neurochecks Consider neurology/ophthalmology evaluation if needed CKD III Renal function at baseline Monitor renal function Avoid nephrotoxic agents as able Hypothyroidism Mildly elevated TSH, normal free T4 Continue levothyroxine Bipolar disorder Normal [place] levels Continue home medications Obesity BMI 36 DVT Px: Heparin SQ CODE STATUS Full code Disposition PT OT prior to discharge I personally reviewed the record. Patient is interviewed and examined at bedside. Patient's care is coordinated with Sania Nicholson PA-C. Please refer to the documentation above for details of patient's presentation and for discussion of other issues. History of Present Illness Chief Complaint: Weakness, coughing Primary Care Provider: Grant Faye MD This is a 77yo M with a PMH of CKD III, bipolar I disorder, hypothyroidism, granulomatous lung disease, HLD and other medical problems listed below who presents with cough and generalized weakness. Cough and runny nose for 3 days as well as fever. He began feeling very weak yesterday and had difficulty walking to bathroom overnight. Fell next to his bed and hit is head around 1am but no LOC. Endorsing blurry vision, fatigue, lightheadedness, congestion and cough. Only has abdominal and back pain with coughing. No CP, wheezing, SOB, dysuria, diarrhea or constipation. No recent medication changes. Does not have any ambulatory dysfunction at baseline and does not use a cane or walker. Had history of stroke like symptoms last year. Allergies Allergy/AdvReac Type Severity Reaction Status Date / Time No Known Allergies Allergy Unverified 09/25/22 12:14 Home Medications Medication Instructions Recorded Confirmed Type aripiprazole 15 mg tablet 7.5 mg PO HS 04/28/23 04/28/23 History aspirin 81 mg tablet,delayed 81 mg PO HS 04/28/23 04/28/23 History release atorvastatin 40 mg tablet 40 mg PO HS 04/28/23 04/28/23 History baclofen 10 mg tablet 10 mg PO BID PRN Muscle Spasm 04/28/23 04/28/23 History gabapentin 300 mg capsule 300 mg PO HS 04/28/23 04/28/23 History levothyroxine 137 mcg tablet 137 mcg PO HS 04/28/23 04/28/23 History lithium carbonate 450 mg 450 mg PO HS 04/28/23 04/28/23 History tablet,extended release trazodone 150 mg tablet 150 mg PO HS 04/28/23 04/28/23 History venlafaxine 150 mg 300 mg PO HS 04/28/23 04/28/23 History capsule,extended release 24 hr (Effexor XR) Past Med/Surg History Medical History CKD (chronic kidney disease), stage III Stroke-like symptoms Bipolar disorder Thyroid disorder Surgical History History of appendectomy Family History Other Depression Dyslipidemia Family history non-contributory Hypertension Social History Smoking Status: Never smoker Hx Alcohol Use: No Hx Substance Use: No Preferred Language: Ukrainian Communication Ability: Effective [employer] Rec[employer] Required: No Beliefs That Will Affect Care: None marital status: Current Living Situation: Spouse current occupational status: retired Feels Safe at Home: Yes Assistive Devices: Denture - Upper, Denture - Lower and Glasses Review of Systems Review of Systems: At least ten systems reviewed and negative except as noted in the HPI. Physical Exam Physical Exam: Please see Dr. Phillips's addendum for physical exam. Results & Data Results & Data Vital Signs (Past 12 Hours) Vital Signs Temp Pulse Pulse Resp BP BP Pulse Ox 04/28/23 10:10 89 18 96 04/28/23 10:00 121/74 04/28/23 10:00 121/74 04/28/23 10:00 86 21 95 04/28/23 09:50 84 27 H 93 04/28/23 09:40 84 28 H 95 04/28/23 09:31 91 H 20 93 04/28/23 09:31 124/77 04/28/23 09:30 86 19 93 04/28/23 09:20 88 14 99 04/28/23 09:10 86 29 H 94 04/28/23 09:02 87 27 H 93 04/28/23 09:02 116/70 04/28/23 09:01 87 21 116/70 95 04/28/23 09:00 86 22 94 04/28/23 08:50 88 28 H 93 04/28/23 08:40 92 H 23 96 04/28/23 08:33 94 H 04/28/23 08:30 91 H 29 H 93 04/28/23 08:20 90 27 H 94 04/28/23 08:10 95 H 19 95 04/28/23 08:02 93 H 18 94 04/28/23 08:02 125/79 04/28/23 08:00 96 H 30 H 95 04/28/23 07:55 93 04/28/23 07:50 91 H 33 H 94 04/28/23 07:45 37.3 C 94 H 20 127/74 93 04/28/23 07:41 105 H 20 94 04/28/23 07:41 127/74 O2 Del Method 04/28/23 10:10 04/28/23 10:00 04/28/23 10:00 04/28/23 10:00 04/28/23 09:50 04/28/23 09:40 04/28/23 09:31 04/28/23 09:31 04/28/23 09:30 04/28/23 09:20 04/28/23 09:10 04/28/23 09:02 04/28/23 09:02 04/28/23 09:01 Room Air 04/28/23 09:00 04/28/23 08:50 04/28/23 08:40 04/28/23 08:33 04/28/23 08:30 04/28/23 08:20 04/28/23 08:10 04/28/23 08:02 04/28/23 08:02 04/28/23 08:00 04/28/23 07:55 Room Air 04/28/23 07:50 04/28/23 07:45 Room Air 04/28/23 07:41 04/28/23 07:41 Laboratory Results Short CBC 04/28/23 Range/Units 07:47 WBC 7.74 (4.8-10.8) K/ul Hgb 13.1 L (14.0-18.0) g/dl Hct 39.4 L (42.0-52.0) % Plt Count 150 (130-400) K/uL BMP 04/28/23 07:47 Sodium 136 Potassium 4.5 Chloride 106 Carbon Dioxide 26 BUN 18 Creatinine 1.54 H Glucose 88 Calcium 9.2 Liver Function 04/28/23 Range/Units 07:47 Total Bilirubin 0.3 (0.2-1.0) mg/dl Direct Bilirubin 0.1 (0-0.2) mg/dl AST 25 (13-39) U/L ALT 23 (7-52) U/L Alkaline Phosphatase 55 (34-104) U/L Albumin 4.1 (3.4-5.0) gm/dl Diagnostic Findings Chest X-Ray 04/28/23 07:45 XR chest 1V portable CLINICAL HISTORY: Sepsis TECHNIQUE: Single frontal radiograph of the chest was obtained. Comparison: Comparison is made to rib series 11/14/2022 FINDINGS: No lines and tubes are seen. The cardiomediastinal silhouette is normal. The lungs are clear. No evidence of pleural effusion or pneumothorax. IMPRESSION: No acute abnormalities and in particular no radiographic evidence of pneumonia. ACT 112: Negative or not required by law. Electronically signed by: Gurmeet Patel M.D. 04/28/2023 8:36 AM ECG Additional Comments: EKG: Normal sinus rhythm. Nonspecific ST-T wave abnormality. QTc 425.
[2023-04-28 12:03] LABS: Thyroid Stimulating Hormone 7.495 uIu/ml (0.300-4.500)
--- NOTE | 2023-04-28 12:09 | CT Scan Report ---
HEAD CT NONCONTRAST CT DOSE: 547.75 mGy.cm HISTORY: weakness TECHNIQUE: Multiaxial CT images of the head were performed without the use of intravenous contrast. A utomated exposure control was utilized for this study. A dose lowering technique was utilized adheri ng to the principles of ALARA. Comparison: Head CT 09/25/2022. Findings: The paranasal sinuses and mastoid air cells are clear. The calvarium and skull base are int act. There is no mass, hematoma, midline shift, acute infarct. White matter hypodensity is nonspecifi c but suggestive of microvascular ischemic change. The ventricles and sulci demonstrate mild age-rela alec involutional changes. Impression: No significant change compared to the prior study. No acute intracranial abnormality. ACT 112: Negative or not required by law. Electronically signed by: Delon Vela M.D. 04/28/2023 12:08 PM
[2023-04-28 12:50] LABS: T4 Free Thyroxine 1.02 ng/dl (0.61-1.60)
[2023-04-28] MEDS ORDERED: ALBUTEROL 0.083% NEBU SOLN 3 ML VIAL NEB PRN (13:59)
[2023-04-28] MEDS ORDERED: BACLOFEN 10 MG TAB PO PRN (13:59)
[2023-04-28] MEDS ORDERED: guaiFENesin/DEXTROM SYRUP 100MG/10MG 5ML UDC PO PRN (13:59)
[2023-04-28] MEDS ORDERED: ACETAMINOPHEN 325 MG TAB PO PRN (13:59)
[2023-04-28] MEDS ORDERED: SODIUM CHLORIDE 0.9% 1,000 ML IV SCH (13:59)
[2023-04-28] MEDS ORDERED: ONDANSETRON INJ 2 MG/ML 2 ML VIAL IV PRN (13:59)
[2023-04-28] MEDS ORDERED: POLYETHYLENE (MIRALAX) 17 GM PACK PO PRN (13:59)
[2023-04-28] MEDS: HEPARIN SOD 5,000 UNIT/0.5 ML VIAL SQ SCH ×2 (15:40→21:50)
--- NOTE | 2023-04-28 16:35 | Magnetic Resonance Report ---
MRI OF THE BRAIN WITHOUT IV CONTRAST CLINICAL HISTORY: Ambulatory dysfunction. Blurry vision. COMPARISON STUDY: CT of the brain dated 04/28/2023. MRI of the brain dated 09/25/2022. TECHNIQUE: MRI of the brain was initiated. Axial diffusion weighted at C2 and sequences were obtained , as well as half of a gradient echo sequence and a sagittal T1-weighted sequence. The patient declin ed further imaging and contrast administration. FINDINGS: Brain parenchyma: There is age-related involutional change noting moderate subcortical and periventri cular microangiopathic disease. There is no hemorrhage or mass effect. There is no restricted diffusi on to suggest acute ischemia. White-white matter differentiation is preserved. No extra-axial fluid co llection is seen. The cerebellar tonsils are normal in configuration. Ventricles, sulci, and cisterns: Prominent secondary to involutional change. Pituitary and sella: Unremarkable. Intracranial vasculature: Normal flow voids are maintained at the skull base. Orbits: The bony orbits are grossly intact. Orbital contents are normal in appearance living bilatera l ocular lens implant. Sinuses and mastoids: There is trace mucosal thickening in the right maxillary antrum and ethmoid sin uses. The remaining paranasal sinuses and mastoid air cells are clear. Calvarium: Unremarkable. Cervical cord: Partially visualized cervical spinal cord is normal in morphology and signal intensity . IMPRESSION: No acute intracranial abnormality is identified noting an incomplete examination. The pat ient declined to finish the procedure. ACT 112: Negative or not required by law. Electronically signed by: Jerome Sullivan M.D. 04/28/2023 4:34 PM
[2023-04-28] MEDS: ARIPiprazole 15 MG TAB PO SCH (21:50)
[2023-04-28] MEDS: ATORVASTATIN 40 MG TAB PO SCH (21:51)
[2023-04-28] MEDS: GABAPENTIN 300 MG CAP PO SCH (21:51)
[2023-04-28] MEDS: traZODone HCL 50 MG TAB PO SCH (21:51)
[2023-04-28] MEDS: ASPIRIN 81 MG ECTAB PO SCH (21:51)
[2023-04-28] MEDS: LEVOTHYROXINE SODIUM 137 MCG TABLET PO SCH (21:51)
[2023-04-28] MEDS: LITHIUM CARBONATE 450 MG TABCR PO SCH (21:51)
[2023-04-28] MEDS: VENLAFAXINE HCL XR 150 MG CAPXR PO SCH (23:23)
[2023-04-29 04:54] LABS: Hematocrit (blood only) 36.8 % (42.0-52.0); Hemoglobin 12.4 g/dl (14.0-18.0); Mean Corpuscular Hemoglobin 33.3 pg (25.0-34.0); Mean Corpuscular Hgb Conc 33.7 g/dL (32.0-36.0); Mean Corpuscular Volume 98.9 fL (80.0-100.0); Mean Platelet Volume 10.4 fL (9.4-12.4); Platelet Count 114 K/uL (130-400); RDW Coefficient of Variation 14.8 % (11.5-14.5); Red Blood Count 3.72 M/uL (4.70-6.10); White Blood Count 6.12 K/ul (4.8-10.8)
[2023-04-29 05:04] LABS: BUN Creatinine Ratio 11.9 (10-20); Calcium 8.6 mg/dl (8.6-10.3); Creatinine Clr Calc Pharmacy 53.8 ml/min; Magnesium 1.8 mg/dl (1.7-2.4); Potassium 4.2 mmol/L (3.5-5.1)
[2023-04-29] MEDS: HEPARIN SOD 5,000 UNIT/0.5 ML VIAL SQ SCH ×3 (05:39→21:25)
--- NOTE | 2023-04-29 07:33 | Electrocardiogram Report ---
Test Reason : Blood Pressure : / mmHG Vent. Rate : 094 BPM Atrial Rate : 094 BPM P-R Int : 160 ms QRS Dur : 090 ms QT Int : 340 ms P-R-T Axes : 012 001 111 degrees QTc Int : 425 ms Normal sinus rhythm Nonspecific T wave abnormality Abnormal ECG When compared with ECG of 25-SEP-2022 09:26, IA interval has decreased Confirmed by Tyler Stewart ([id number]) on 04/29/2023 7:33:39 AM Referred By: REFERRED SELF Confirmed By:Tyler Stewart
[2023-04-29] MEDS: OSELTAMIVIR PHOSPHATE SUSP 30 MG/5 ML UDP PO SCH ×2 (11:24→21:54)
--- NOTE | 2023-04-29 13:39 | Hospitalist Progress Note ---
Date of Service April 29, 2023 Assessment & Plan (1) Morbid obesity: (2) Bipolar disorder: (3) Hypothyroidism: (4) Depression: (5) Stroke-like symptoms: (6) CKD (chronic kidney disease), stage III: Plan Acute bronchitis Influenza A infection H/O granulomatous lung disease Bio fire negative Normal procalcitonin --CXR:No acute abnormalities and in particular no radiographic evidence of pneumonia. Continue on Tamiflu. Generalized weakness Ambulatory dysfunction Likely secondary to above Mildly elevated TSH, normal free T4 Fall precautions PT OT pending Blurred vision Dizziness Grossly no focal deficits on exam CT Head:No significant change compared to the prior study. No acute intracranial abnormality. Normal [place] levels MRI brainno acute intracranial abnormality. Patient declined to finish the procedure. CKD III Renal function at baseline Monitor renal function Avoid nephrotoxic agents as able Hypothyroidism Mildly elevated TSH, normal free T4 Continue levothyroxine Bipolar disorder Normal [place] levels Continue home medications Obesity BMI 36 DVT Px: Heparin SQ CODE STATUS Full code Disposition Patient presented with flu and weakness. PT OT evaluation is pending. Please note the above document was generated using voice recognition software. It may contain grammatical, syntax or spelling errors. Any formal questions or concerns about the content, text or information contained within the body of this dictation should be directly addressed to the provider for clarification Admission and Anticipated Discharge Date Admission Date: April 28, 2023 Subjective Patient seen and examined at bedside. He reports that he is feeling slightly better compared to admission. Denies shortness of breath presently. Review of Systems Review of Systems: All systems reviewed & are unremarkable except as noted in Subjective Physical Exam Physical Exam: Constitutional: WD/WN, vitals as above, NAD, sitting up in bed, pleasant, conversing easily Respiratory: normal respiratory effort, lungs clear to auscultation, no wheeze, rales, rhonchi. Normal insp/exp effort, no accessory muscle use Cardiovascular: RRR, no murmur, no edema Vessels: no JVD or carotid bruit Chest: normal inspection of chest Abdomen: normal bowel sounds, soft, nontender, no hepatosplenomegaly Musculoskeletal: no cyanosis or clubbing, extremities motor strength 5/5 Skin: no rashes, warm and dry normal turgor Neurologic: PERRL, EOMI, accommodation nl, no face palsy, no dysarthria CN's II- XI intact bilaterally and moves all extremities Psychiatric: A+Ox3, euthymic affect Results & Data Results & Data Vital Signs (Past 12 Hours) Vital Signs Temp Pulse Pulse Resp BP BP Pulse Ox 04/29/23 08:59 36.5 C 69 18 125/83 96 04/29/23 05:42 71 22 133/84 97 04/29/23 05:42 133/84 95 04/29/23 02:00 36.9 C 80 20 123/73 96 O2 Del Method 04/29/23 08:59 Room Air 04/29/23 05:42 Room Air 04/29/23 05:42 Room Air 04/29/23 02:00 Room Air
[2023-04-29 14:13] LABS: Appearance Urine Clear (Clear); Bilirubin Urine Negative (Negative); Blood Urine Negative (Negative); Color Urine Yellow; Glucose Urine UA Negative (Negative); Ketones Urine Negative (Negative); Leukocyte Esterase Urine Negative (Negative); Nitrite Urine Negative (Negative); Protein Urine Negative (Negative); Specific Gravity Urine 1.011 (1.000-1.030); Urobilinogen Urine Negative (Negative); pH Urine 6.5 (4.5-7.5)
[2023-04-29] MEDS: traZODone HCL 50 MG TAB PO SCH (21:25)
[2023-04-29] MEDS: ARIPiprazole 15 MG TAB PO SCH (21:26)
[2023-04-29] MEDS: LITHIUM CARBONATE 450 MG TABCR PO SCH (21:26)
[2023-04-29] MEDS: VENLAFAXINE HCL XR 150 MG CAPXR PO SCH (21:26)
[2023-04-29] MEDS: ASPIRIN 81 MG ECTAB PO SCH (21:26)
[2023-04-29] MEDS: ATORVASTATIN 40 MG TAB PO SCH (21:27)
[2023-04-29] MEDS: LEVOTHYROXINE SODIUM 137 MCG TABLET PO SCH (21:27)
[2023-04-29] MEDS: GABAPENTIN 300 MG CAP PO SCH (21:27)
[2023-04-30] MEDS: HEPARIN SOD 5,000 UNIT/0.5 ML VIAL SQ SCH (05:22)
[2023-04-30] MEDS: OSELTAMIVIR PHOSPHATE SUSP 30 MG/5 ML UDP PO SCH (08:17)
--- NOTE | 2023-04-30 14:43 | Discharge Summary ---
Date of Service April 30, 2023 Admission HPI Per Admitting Provider This is a 77yo M with a PMH of CKD III, bipolar I disorder, hypothyroidism, granulomatous lung disease, HLD and other medical problems listed below who presents with cough and generalized weakness. Cough and runny nose for 3 days as well as fever. He began feeling very weak yesterday and had difficulty walking to bathroom overnight. Fell next to his bed and hit is head around 1am but no LOC. Endorsing blurry vision, fatigue, lightheadedness, congestion and cough. Only has abdominal and back pain with coughing. No CP, wheezing, SOB, dysuria, diarrhea or constipation. No recent medication changes. Does not have any ambulatory dysfunction at baseline and does not use a cane or walker. Had history of stroke like symptoms last year. Admission Exam Per Admitting Provider Vitals signs as noted above General Appearance:Obese, no apparent distress, Elderly Head: normocephalic, Atraumatic Eyes: normal inspection, EOMI Neck: supple, Trachea midline Respiratory/Chest: Normal breath sounds, scattered wheezes, No accessory muscle use Cardiovascular: S1, S2, No murmur Abdomen/GI:Soft, Non tender, Bowel sounds present Extremities/Musculoskeletal:normal inspection, 1+ B/L Pedal edema Neurologic/Psych:AAOX3, grossly no focal neurological deficits Skin: normal color, warm Principal Diagnosis Influenza A Ambulatory dysfunction Discharge Exam Constitutional: WD/WN, vitals as above, NAD, sitting up in bed, pleasant, conversing easily Respiratory: normal respiratory effort, lungs clear to auscultation, no wheeze, rales, rhonchi. Normal insp/exp effort, no accessory muscle use Cardiovascular: RRR, no murmur, no edema Vessels: no JVD or carotid bruit Chest: normal inspection of chest Abdomen: normal bowel sounds, soft, nontender, no hepatosplenomegaly Musculoskeletal: no cyanosis or clubbing, extremities motor strength 5/5 Skin: no rashes, warm and dry normal turgor Neurologic: PERRL, EOMI, accommodation nl, no face palsy, no dysarthria CN's II- XI intact bilaterally and moves all extremities Psychiatric: A+Ox3, euthymic affect Discharge Data Allergies Allergy/AdvReac Type Severity Reaction Status Date / Time No Known Allergies Allergy Unverified 09/25/22 12:14 Consultations 04/28/23 10:40 ED Decision to Admit Stat Ordered Studies 04/28/23 10:33 CT head/brain wo con Stat 04/28/23 12:26 MR brain wo con Routine Hospital Course (1) Morbid obesity: (2) Bipolar disorder: (3) Hypothyroidism: (4) Depression: (5) Stroke-like symptoms: (6) CKD (chronic kidney disease), stage III: Plan Acute bronchitis Influenza A infection H/O granulomatous lung disease Bio fire negative Normal procalcitonin --CXR:No acute abnormalities and in particular no radiographic evidence of pne umonia. Patient was treated with Tamiflu during the hospitalization. Oxygen saturation was monitored; patient did not required any supplemental oxygen. Patient was discharged home with Tamiflu. Generalized weakness Ambulatory dysfunction Likely secondary to above Mildly elevated TSH, normal free T4 Fall precautions PT OT evaluation was done; patient was able to go back home. He was ambulating without any difficulty at discharge. Blurred vision Dizziness Grossly no focal deficits on exam CT Head:No significant change compared to the prior study. No acute intracranial abnormality. Normal [place] levels MRI brainno acute intracranial abnormality. Patient declined to finish the procedure. No dizziness or blurred vision at discharge. Please note the above document was generated using voice recognition software. It may contain grammatical, syntax or spelling errors. Any formal questions or concerns about the content, text or information contained within the body of this dictation should be directly addressed to the provider for clarification Total Time Total Time Spent Total Time Spent (In Minutes): 45 Total Time Includes: Examination of the Patient, Discharge Planning, Medication Reconciliation, Communication With Other Providers and Other Discharge Plan Discharge Items Patient Disposition: Home - Self-Care Reason For Visit: FLU A, AMBULATORY DYSFUNCTION Discharge Diagnosis: Influenza A Activity: Resume your previous activity Non-emergency contact: Primary Care Provider Call non-emergency contact if: you have any medication questions and your symptoms worsen Follow-up/Referrals: Grant Faye MD [Primary Care Provider] - Diet: Regular Addtl Attending Provider Instructions: You were admitted to the hospital due to influenza A. You were treated with antiviral during the hospitalization. You are prescribed Tamiflu 75 mg to be taken twice daily for 3 more days. An appointment will be set up with your primary care doctor for sometime next week. Pending Studies at Discharge: No Stand-Alone Forms: [facility], Smoking Cessation Medications and DC Order Prescriptions: New oseltamivir [Tamiflu] 75 mg capsule 75 mg PO BID 3 Days Qty: 6 0RF Continued levothyroxine 137 mcg tablet 137 mcg PO HS lithium carbonate 450 mg tablet extended release 450 mg PO HS baclofen 10 mg tablet 10 mg PO BID PRN (Reason: Muscle Spasm) trazodone 150 mg tablet 150 mg PO HS gabapentin 300 mg capsule 300 mg PO HS aripiprazole 15 mg tablet 7.5 mg PO HS atorvastatin 40 mg tablet 40 mg PO HS venlafaxine [Effexor XR] 150 mg capsule,extended release 24hr 300 mg PO HS aspirin 81 mg tablet,delayed release (DR/EC) 81 mg PO HS Discharge Orders: Discharge Order (Routine); Ordered 04/30/23 Ordered By: Mateo Aguero/Other Patient Handouts: The Flu (Influenza) Admission Data Admit Date/Time: 04/28/23 11:09 Attending Provider: Mateo Mehta Admit Provider: Taran Phillips Primary Care Provider: Grant Faye Other Providers: Taran Phillips Other Interventions: Discharge Summary Assessment (RN) Last Done: 04/30/23 13:10
== END 2023-04-30 13:27 | disposition home or self-care (01) ==
LOC: EDSEX → ED 07:35 → EDINP 07:35 → SUATTDRO 11:09 → 3E 14:00